=== PATIENT | female | born 1965 | race Caucasian/White ===

== ENCOUNTER 2018-07-31 20:26 | Inpatient (IN) | payer MEDICAID, OTHER, SELFPAY ==
[~2018-07-31] VITALS: Ht 167.6 cm; Wt 120.6 kg
[2018-07-31 22:30] VITALS: BP 107/55
[2018-07-31] MEDS ORDERED: MAALOX 30 ML SUSP *UDC PO PRN (23:00)
[2018-07-31] MEDS ORDERED: MOM 30ML SUSPENSION UDC PO PRN (23:00)
[2018-07-31] MEDS ORDERED: IBUP-1094 PO (23:08)
[2018-07-31] MEDS ORDERED: PRIL20TA2 PO (23:08)
--- NOTE | 2018-07-31 23:48 | HPEPDOC ---
General Date of Admission Jul 31, 2018 at 22:53 Date of Service: Jul 31, 2018 Chief Complaint The patient is a 52-year-old female admitted with a reason for visit of L Leg Pain. Source: Patient, Family Exam Limitations: No limitations Severity: Moderate Associated Symptoms: Rash History of Present Illness 52 year old morbidly obese female with BMI of 39.9 was transferred from [facility] severe left leg infected venous stasis ulcers. patient had gone to [place] ED with complaints of left lower leg swelling, drainage which started 6 months ago getting progressively worse. Now extremely painful and having difficulty in walking so went to the ED. Has not seen a physician for a long time. She says that the leg really became bad over the past 2 weeks when the ulcer started draining. She complains of sevee pain on rika left leg from the knee to the ankle, burning in charcater and dull throbbing sometimes, 10/10 in intensity without any radiation. She is having difficulty walking due to the severe pain. She was admitted for cellulitis, infected venous stais ulcers and venous stasis dermatitis. Labs from [place] on 07/31/18 WBC 8.7, Hb 13.5, Platelet 290 Na 135, K 3.4, chloride 99, bicarb 15, glucose 99, BUN17, Creatinine 1.5, ca 9.4, albumin 3.6, anion gap 21, Mag 2.3, Trop negative PT/INR: 15.2/1.16, PTT 31.3, Home Medications Scheduled Omeprazole Magnesium (Prilosec Otc) 20 Mg Tablet.dr, 20 MG PO DAILY, (Reported) Scheduled PRN Ibuprofen (Ibuprofen) 200 Mg Tablet, 600 MG PO Q6H PRN for PAIN, (Reported) Allergies Coded Allergies: No Known Allergies (Verified Allergy, Unknown, 07/31/18) Past Medical History Medical History Morbid obesity, venous stasis Surgical History none Family History Significant Family History: Hypertension (father), Other (dementia in father) Social History * Smoker: current smoker Alcohol: occationally Drugs: denies A-FIB/CHADSVASC A-FIB History Current/History of A-Fib/PAF?: No Review of Systems Constitutional: Denies: Chills, Fever, Night Sweats Eyes: Denies: Pain, Conjunctivae inflammation, Eyelid inflammation, Redness, O ther ENT: Denies: Head Aches, Ear Pain, Dysphagia Skin: Reports: Rash, Lesions, Breakdown Pulmonary: Denies: Dyspnea, Cough Cardiovascular: Denies: Chest Pain, Palpitations, Orthopnea, Paroxysmal Noc. Dyspnea, Lt Headedness Gastrointestinal: Denies: Nausea, Vomiting, Abdominal Pain, Diarrhea Genitourinary: Denies: Dysuria, Frequency, Incontinence, Retention Hematologic: Denies: Bruising, Bleeding Excessively Musculoskeletal: Denies: Neck Pain, Back Pain, Joint Pain, Muscle Pain, Spasms Neurological: Denies: Weakness, Numbness, Change in speech, Confusion Physical Examination General Exam: Positive: Alert, Cooperative, No Acute Distress Eye Exam: Positive: PERRLA, Conjunctiva & lids normal, EOMI; Negative: Sclera icteric ENT Exam: Positive: Atraumatic, Mucous membr. moist/pink, Pharynx Normal Neck Exam: Positive: Supple; Negative: JVD, thyromegaly Chest Exam: Positive: Clear to auscultation, Normal air movement Heart Exam: Positive: Rate Normal, Regular Rhythm, Normal S1, Normal S2; Negative: Murmurs, Rubs Abdomen Exam: Positive: Normal bowel sounds, Soft; Negative: Tenderness, Hepatospenomegaly Extremity Exam: Positive: Edema, Tenderness (left leg), Other (venous stasis changes in the right . on the left there is venous statis changes, infected multiple stsis ulcers and cellulitis) Skin Exam: Positive: Rash, Breakdown, Lesion, Other skin issue (Left leg with large area of multiple open superficail ulcers with , stasis dermatitis, erythema and inflammation extending from carmelo to ankles) Neuro Exam: Positive: Normal Speech, Strength at 5/5 X4 ext, Normal Tone Psych Exam: Positive: Mental status NL, Memory Intact, Oriented x 3 Vital Signs Vital Signs Label Value Date Time Patient Temperature 96.8 degrees F 07/31/182229 Temperature Source Temporal 07/31/182229 Pulse 60 07/31/182229 Respiratory Rate 17 bpm 07/31/182229 Blood Pressure Assessment 107/55 (72) 07/31/182229 Bedside Pulse Oximetry 99 % 07/31/182229 Assessment/Plan 52 year old morbidly obese female with BMI of 39.9 was transferred from [facility] severe left leg infected venous stasis ulcers. patient had gone to [place] ED with complaints of left lower leg swelling, drainage which started 6 months ago getting progressively worse. Now extremely painful and having dif ficulty in walking so went to the ED. Has not seen a physician for a long time. She says that the leg really became bad over the past 2 weeks when the ulcer started draining. She complains of sevee pain on rika left leg from the knee to the ankle, burning in charcater and dull throbbing sometimes, 10/10 in intensity without any radiation. She is having difficulty walking due to the severe pain. She was admitted for cellulitis, infected venous stais ulcers and venous stasis dermatitis. Left leg Cellulitis will give vanco and zosyn. DVT scan done in other hospital is negative. Venous stasis and stasis ulcers and stasis dermatitis elevate legs , wound care consult Dr Lomas. Morbid obesity BMI 39.9 complicating care. STACY Vs CKD we do not have any old labs she does have a low bicarb and high anion gap also will continue to monitor Plan / VTE VTE Prophylaxis Ordered?: Yes SHARRON GARIBAY MD Jul 31, 2018 23:48
[2018-08-01] MEDS ORDERED: ONDANSETRON 4MG/2ML VIAL (J2405) IV PRN
[2018-08-01 00:26] LABS: BASO % 0.2 % (0.0-1.0); EOS % 0.1 % (0.0-3.0); HEMATOCRIT 40.1 % (36.0-47.0); HEMOGLOBIN 12.9 g/dl (12.0-15.5); LYMPH # 0.8 10^3/uL (1.5-4.5); LYMPH % 9.2 % (24.0-44.0); MEAN CORPUSCULAR HEMOGLOBIN 26.5 pg (27.0-33.0); MEAN CORPUSCULAR HGB CONC 32.2 g/dl (32.0-36.5); MEAN CORPUSCULAR VOLUME 82.3 fl (80.0-96.0); MONO # 0.5 10^3/uL (0.0-0.8); MONO % 5.3 % (0.0-5.0); NEUTROPHILS # 7.6 10^3/uL (1.8-7.7); NEUTROPHILS % 84.8 % (36.0-66.0); PLATELET COUNT, AUTOMATED 250 10^3/uL (150-450); RED BLOOD COUNT 4.87 10^6/uL (4.00-5.40)
[2018-08-01 00:47] LABS: CALCIUM LEVEL 8.7 MG/DL (8.5-10.1); CREATININE FOR GFR 1.83 MG/DL (0.55-1.30); GLOMERULAR FILTRATION RATE 30.6 (>51); POTASSIUM SERUM 3.6 MEQ/L (3.5-5.1)
[2018-08-01] MEDS ORDERED: VANCOMYCIN HCL 1,000 MG, VIAL MATE ADAPTER 1 EACH in D5W 250 ML IV ONE (01:00)
[2018-08-01] MEDS: NORCO, ANEXSIA 5/325MG TABLET (HYDROcodone/ACETAMINOPHEN) PO PRN ×2 (01:40→07:59)
[2018-08-01] MEDS: PIPERACILLIN/TAZOBACTAM SOD 3.375 GM in D5W MINI-BAG PLUS 50 ML IV SCH ×4 (03:12→20:11)
--- NOTE | 2018-08-01 03:21 | PHACANCOPD ---
PHARMACY VANCOMYCIN DOSING Pt Demographics Demographics Patient Age:52 , Weight:112.100 , Gender: female Adjusted Body Weight Date: 08/01/18, Adjusted Body Weight: [80.42] Kg Vancomycin Vancomycin indication: CELLULITIS,L.LEG VENOUS STASIS ULCERS Vancomycin Target Ranges: 15-20 mcg/ml Vancomycin Load Y/N: No Load Dose Date Time Vancomycin Load Dose: Date: Time: Vancomycin Dose Date: 08/01/18. Current Vancomycin Dose: [1GM Q18H] Intermittent Dosing?: No Labs Labs Laboratory Tests 08/01/18 00:16 Red Blood Count 4.87, Mean Corpuscular Volume 82.3, Mean Corpuscular Hemoglobin 26.5 L, Mean Corpuscular Hemoglobin Concent 32.2, Red Cell Distribution Width 15.2 H, Neutrophils (%) (Auto) 84.8 H, Lymphocytes (%) (Auto) 9.2 L, Monocytes (%) (Auto) 5.3 H, Eosinophils (%) (Auto) 0.1, Basophils (%) (Auto) 0.2, Neutrophils # (Auto) 7.6, Lymphocytes # (Auto) 0.8 L, Monocytes # (Auto) 0.5, Eosinophils # (Auto) 0.0, Basophils # (Auto) 0.0, Calcium Level 8.7 Micro Microbiology 08/01/18 Gram Stain, Received Pending 08/01/18 Wound Culture, Received Pending Creatinine Clearance Date:08/01/18. Creatinine Clearance: [44.62]CALCULATED. Assessment and Plan Maintaining Current Dose?: Yes Reason for dose change: No Dose Change Pharmacist Note Pharmacist Note Date: 08/01/18. Pharmacist note:[id number] Transferred from area facility w/ cellulitis/L-leg venous stasis ulcers Received a dose of Pip/Tazo 3.375 gram and Cipro 400mg prior to transfer. SCR=1.83, Calculqated CRCL= 44.6 [facility] tx includes Pip/Tazo and Pharmacy dosed Vancomycin. Vancomycin 1 gram administered in ED @0115, then will continue with a regimen of 1 gram IV Q18H. First trough will be drawn 08/02@0800( prior to the 3rd dose)- will continue to monitor labs and make adjustments as necessary. TIMUR ECKERT PHARMACY Aug 01, 2018 03:21
[2018-08-01 06:00] VITALS: BP 145/72
[2018-08-01 06:07] LABS: BASO % 0.2 % (0.0-1.0); EOS % 0.1 % (0.0-3.0); HEMATOCRIT 40.9 % (36.0-47.0); HEMOGLOBIN 13.2 g/dl (12.0-15.5); LYMPH # 0.6 10^3/uL (1.5-4.5); LYMPH % 5.9 % (24.0-44.0); MEAN CORPUSCULAR HGB CONC 32.3 g/dl (32.0-36.5); MEAN CORPUSCULAR VOLUME 83.6 fl (80.0-96.0); MONO # 0.5 10^3/uL (0.0-0.8); MONO % 4.6 % (0.0-5.0); NEUTROPHILS # 9.3 10^3/uL (1.8-7.7); NEUTROPHILS % 88.6 % (36.0-66.0); PLATELET COUNT, AUTOMATED 248 10^3/uL (150-450); RED BLOOD COUNT 4.89 10^6/uL (4.00-5.40); WHITE BLOOD COUNT 10.5 10^3/uL (4.0-10.0)
[2018-08-01 06:36] LABS: C REACTIVE PROTEIN QUANTITATIV 11.2 MG/DL (0.00-0.30); CALCIUM LEVEL 8.5 MG/DL (8.5-10.1); CREATININE FOR GFR 2.1 MG/DL (0.55-1.30); GLOMERULAR FILTRATION RATE 26.1 (>51); POTASSIUM SERUM 4.4 MEQ/L (3.5-5.1)
[2018-08-01] MEDS: DOCUSATE SODIUM 100 MG CAP PO SCH ×3 (07:58→20:15)
[2018-08-01] MEDS: OMEPRAZOLE 20 MG CAP PO SCH (07:59)
[2018-08-01] MEDS: ENOXAPARIN 30 MG/0.3 ML SYR (J1650) SC SCH (08:00)
[2018-08-01] MEDS ORDERED: ENOXAPARIN 40 MG/0.4 ML SYRINGE (J1650) SC SCH (09:00)
[2018-08-01] MEDS ORDERED: NALOXONE INJ 0.4 MG/1 ML VIAL (J2310) IV PRN (11:00)
[2018-08-01] MEDS ORDERED: MORPHINE 4 MG/ML 1ML VIAL/SYRINGE (J2270) IV PRN (11:00)
[2018-08-01] MEDS ORDERED: NORCO, ANEXSIA 5/325MG TABLET (HYDROcodone/ACETAMINOPHEN) PO ONE (11:00)
[2018-08-01] MEDS ORDERED: MORPHINE 4 MG/ML 1ML VIAL/SYRINGE (J2270) IV ONE (11:15)
[2018-08-01 11:30] LABS: IONIZED CALCIUM 4.4 MG/DL (4.5-5.3)
--- NOTE | 2018-08-01 12:20 | IPNPDOC ---
Date Seen The patient was seen on 08/01/18. Progress Note Subjective: Pt says left leg has not been treated for 6months. She has not sought medical attention until the pain became intolerable for the past 2 weeks. Denies any fevers. c/o 10/10 severe pain despite 2 tabs norco. no c/o chills. pain is constant in the leg with no radiation. OBJECTIVE: VITALS: PLS SEE BELOW Physical Examination General Exam: Positive: Alert, Cooperative, No Acute Distress Eye Exam: Positive: PERRLA, Conjunctiva & lids normal, EOMI; Negative: Sclera icteric ENT Exam: Positive: Atraumatic, Mucous membr. moist/pink, Pharynx Normal Neck Exam: Positive: Supple; Negative: JVD, thyromegaly Chest Exam: Positive: Clear to auscultation, Normal air movement Heart Exam: Positive: Rate Normal, Regular Rhythm, Normal S1, Normal S2; Negative: Murmurs, Rubs Abdomen Exam: Positive: Normal bowel sounds, Soft; Negative: Tenderness, Hepatospenomegaly Extremity Exam: Positive: Edema, Tenderness (left leg), Other (venous stasis changes in the right . on the left there is venous statis changes, infected multiple stsis ulcers and cellulitis) Skin Exam: Positive: Rash, Breakdown, Lesion, Other skin issue (Left leg with large area of multiple open superficail ulcers with , stasis dermatitis, erythema and inflammation extending from carmelo to ankles) Neuro Exam: Positive: Normal Speech, Strength at 5/5 X4 ext, Normal Tone Psych Exam: Positive: Mental status NL, Memory Intact, Oriented x 3 laboratory data, imaging studies, microbiology: pls see below Assessment/Plan 52 year old morbidly obese female with BMI of 39.9 was transferred from [facility] severe left leg infected venous stasis ulcers. patient had gone to [place] ED with complaints of left lower leg swelling, drainage which started 6 months ago getting progressively worse. Now extremely painful and having difficulty in walking so went to the ED. Has not seen a physician for a long ttius e. She says that the leg really became bad over the past 2 weeks when the ulcer started draining. She complains of sevee pain on rika left leg from the knee to the ankle, burning in charcater and dull throbbing sometimes, 10/10 in intensity without any radiation. She is having difficulty walking due to the severe pain. She was admitted for cellulitis, infected venous stais ulcers and venous stasis dermatitis. Chronic Left LE infected venous ulcers 07/31/18 iv vanco and zosyn renally dosed by pharmacy DVT scan done in other hospital is negative. consulted General surgery Dr. Stone for debridement and wound management. Morbid obesity BMI 39.9 complicating care. at risk for hypercarbia and hypercapnic respiratory failure while on iv morphine, and po norco check nocturnal oximetry flaca protocol STACY Vs CKD we do not have any old labs she does have a low bicarb and high anion gap also will continue to monitor Metabolic Acidosis check ionized calcium and serial metabolic panel check acetone, lactic acid, and a1c trial of bicarbonate tabs tele while on bicarb tabs VS[facility]/I&O Vital Signs Date Time Temp Pulse Resp B/P (MAP) Pulse Ox O2 Delivery O2 Flow Rate FiO2 08/01/18 10:27 20 08/01/18 06:00 96.6 64 145/72 (96) 94 I&O- Last 24 Hours up to 6 AM 08/01/18 06:00 Intake Total 100 ml Output Total 0 ml Balance 100 ml Laboratory Data 24H LABS Laboratory Tests 2 08/01/18 00:16: Immature Granulocyte % (Auto) 0.4, White Blood Count 9.0, Red Blood Count 4.87, Hemoglobin 12.9, Hematocrit 40.1, Mean Corpuscular Volume 82.3, Mean Corpuscular Hemoglobin 26.5L, Mean Corpuscular Hemoglobin Concent 32.2, Red Cell Distribution Width 15.2H, Platelet Count 250, Neutrophils (%) (Auto) 84.8H, L ymphocytes (%) (Auto) 9.2L, Monocytes (%) (Auto) 5.3H, Eosinophils (%) (Auto) 0.1, Basophils (%) (Auto) 0.2, Neutrophils # (Auto) 7.6, Lymphocytes # (Auto) 0.8L, Monocytes # (Auto) 0.5, Eosinophils # (Auto) 0.0, Basophils # (Auto) 0.0, Nucleated Red Blood Cells % (auto) 0.0, Anion Gap 15, Glomerular Filtration Rate 30.6L, Lactic Acid Level 0.7, Blood Urea Nitrogen 21H, Creatinine 1.83H, Sodium Level 134L, Potassium Level 3.6, Chloride Level 101, Carbon Dioxide Level 18L, Calcium Level 8.7 08/01/18 05:56: Immature Granulocyte % (Auto) 0.6, White Blood Count 10.5H, Red Blood Count 4.89, Hemoglobin 13.2, Hematocrit 40.9, Mean Corpuscular Volume 83.6, Mean Corpuscular Hemoglobin 27.0, Mean Corpuscular Hemoglobin Concent 32.3, Red Cell Distribution Width 15.4H, Platelet Count 248, Neutrophils (%) (Auto) 88.6H, Lymphocytes (%) (Auto) 5.9L, Monocytes (%) (Auto) 4.6, Eosinophils (%) (Auto) 0.1, Basophils (%) (Auto) 0.2, Neutrophils # (Auto) 9.3H, Lymphocytes # (Auto) 0.6L, Monocytes # (Auto) 0.5, Eosinophils # (Auto) 0.0, Basophils # (Auto) 0.0, Nucleated Red Blood Cells % (auto) 0.0, Anion Gap 15, Glomerular Filtration Rate 26.1L, Blood Urea Nitrogen 25H, Creatinine 2.10H, Sodium Level 132L, Potassium Level 4.4#, Chloride Level 99, Carbon Dioxide Level 18L, Calcium Level 8.5, C- Reactive Protein, Quantitative 11.20H CBC/BMP Laboratory Tests 08/01/18 00:16 Red Blood Count 4.87, Mean Corpuscular Volume 82.3, Mean Corpuscular Hemoglobin 26.5 L, Mean Corpuscular Hemoglobin Concent 32.2, Red Cell Distribution Width 15.2 H, Neutrophils (%) (Auto) 84.8 H, Lymphocytes (%) (Auto) 9.2 L, Monocytes (%) (Auto) 5.3 H, Eosinophils (%) (Auto) 0.1, Basophils (%) (Auto) 0.2, Neutrophils # (Auto) 7.6, Lymphocytes # (Auto) 0.8 L, Monocytes # (Auto) 0.5, Eosinophils # (Auto) 0.0, Basophils # (Auto) 0.0, Calcium Level 8.7 08/01/18 05:56 Red Blood Count 4.89, Mean Corpuscular Volume 83.6, Mean Corpuscular Hemoglobin 27.0, Mean Corpuscular Hemoglobin Concent 32.3, Red Cell Distribution Width 15.4 H, Neutrophils (%) (Auto) 88.6 H, Lymphocytes (%) (Auto) 5.9 L, Monocytes (%) (Auto) 4.6, Eosinophils (%) (Auto) 0.1, Basophils (%) (Auto) 0.2, Neutrophils # (Auto) 9.3 H, Lymphocytes # (Auto) 0.6 L, Monocytes # (Auto) 0.5, Eosinophils # (Auto) 0.0, Basophils # (Auto) 0.0, Calcium Level 8.5 Microbiology Microbiology 08/01/18 Gram Stain - Final, Resulted 08/01/18 Wound Culture, Resulted Pending KATHRYN DOTSON MD Aug 01, 2018 10:35
[2018-08-01 12:46] LABS: CALCIUM LEVEL 8.9 MG/DL (8.5-10.1); CREATININE FOR GFR 2.31 MG/DL (0.55-1.30); GLOMERULAR FILTRATION RATE 23.4 (>51); POTASSIUM SERUM 3.5 MEQ/L (3.5-5.1)
[2018-08-01] MEDS: SODIUM BICARBONATE 325 MG TAB PO SCH ×3 (13:47→20:11)
[2018-08-01 14:00] VITALS: BP 146/70
[2018-08-01 14:22] LABS: HEMOGLOBIN A1c 7.9 %
[2018-08-01] MEDS: MORPHINE 30 MG TAB **MSIR PO PRN (15:05)
[2018-08-01] MEDS: SILVER SULFADIAZINE 1% CR 50 GM JAR TOP SCH ×2 (15:05→22:15)
[2018-08-01] MEDS: VANCOMYCIN HCL 1,000 MG, VIAL MATE ADAPTER 1 EACH in D5W 250 ML IV SCH (15:05)
[2018-08-01] MEDS: MORPHINE 15 MG SA TAB PO SCH (20:11)
[2018-08-01 22:00] VITALS: BP 117/55
--- NOTE | 2018-08-01 23:39 | CR ---
DATE OF CONSULTATION: 08/01/2018 REASON FOR CONSULTATION: Venous stasis disease, leg ulcers left leg with increasing pain and infections. BRIEF HISTORY OF PRESENT ILLNESS: The patient is a 52-year-old morbidly obese white female who presents with a significant venous stasis disease that had been treated for quite some time now and has probably been going on 6 months, maybe 7 months now. And over the last 2 weeks, the patient has had some increasing drainage from the site and pain and swelling, mostly from the knee to the ankle with increasing drainage. She states that when she walks, she has increased pain. She presents now for cellulitis and venous stasis disease. Her white count was normal on admission. Past medical history is significant for a history of morbid obesity, history venous stasis disease. Medications include ibuprofen as needed. PHYSICAL EXAM: Reveals a 52-year-old female who looks stated age. HEENT is unremarkable and lower extremity exam reveals significant venous stasis changes to the left lower extremity with erythema in the area with some obvious ulcerations that are all superficial and draining and have fibrinous exudate on it. It appears that these ulcerations are pretty much circumferential, extending from the proximal calf all the way down to the ankle. IMPRESSION AND PLAN: The patient has venous stasis disease of the lower extremity, and at this point, I do feel that antibiotic treatment is appropriate, leg elevation, wound care has been ordered and with dressing changes, compression and we will see how that makes a difference over the next 24-48 hours. I do feel that she may be an individual that would be best evaluated for venous insufficiency. If she does have venous insufficiency, fixing this issue, i.e. treating varicose veins may be the next appropriate step for her. However, additionally weight loss is paramount and possibly even having her undergo a gastric bypass might be a reasonable option for her to see if we cannot decrease the comorbidities associated with this morbid obesity. She understands our current plan at this time with dressing changes and will see how she does.
[2018-08-02] MEDS: KCL 10MEQ IN D5/0.45NS 1000ML 1,000 ML IV SCH ×3 (02:15→21:04)
[2018-08-02] MEDS: PIPERACILLIN/TAZOBACTAM SOD 3.375 GM in D5W MINI-BAG PLUS 50 ML IV SCH ×4 (02:31→20:14)
[2018-08-02] MEDS ORDERED: SUCRALFATE 1 GM TAB PO ONE (03:30)
[2018-08-02] MEDS: MORPHINE 4 MG/ML 1ML VIAL/SYRINGE (J2270) IV PRN ×3 (03:46→20:23)
[2018-08-02 06:00] VITALS: BP 115/62
[2018-08-02 08:20] LABS: BASO % 0.1 % (0.0-1.0); EOS % 0.3 % (0.0-3.0); HEMATOCRIT 37.6 % (36.0-47.0); HEMOGLOBIN 12.4 g/dl (12.0-15.5); LYMPH % 10.5 % (24.0-44.0); MEAN CORPUSCULAR HEMOGLOBIN 27.1 pg (27.0-33.0); MEAN CORPUSCULAR VOLUME 82.3 fl (80.0-96.0); MONO # 0.7 10^3/uL (0.0-0.8); MONO % 7.2 % (0.0-5.0); NEUTROPHILS # 7.4 10^3/uL (1.8-7.7); NEUTROPHILS % 81.6 % (36.0-66.0); PLATELET COUNT, AUTOMATED 240 10^3/uL (150-450); RED BLOOD COUNT 4.57 10^6/uL (4.00-5.40); WHITE BLOOD COUNT 9.1 10^3/uL (4.0-10.0)
[2018-08-02] MEDS: SUCRALFATE 1 GM TAB PO SCH ×4 (08:20→21:04)
[2018-08-02] MEDS: DOCUSATE SODIUM 100 MG CAP PO SCH ×2 (08:20→20:23)
[2018-08-02] MEDS: ENOXAPARIN 30 MG/0.3 ML SYR (J1650) SC SCH (08:21)
[2018-08-02] MEDS: SODIUM BICARBONATE 325 MG TAB PO SCH ×4 (08:21→21:03)
[2018-08-02] MEDS: MORPHINE 15 MG SA TAB PO SCH ×2 (08:21→21:03)
[2018-08-02] MEDS: OMEPRAZOLE 20 MG CAP PO SCH (08:21)
[2018-08-02 08:46] LABS: CALCIUM LEVEL 7.9 MG/DL (8.5-10.1); CREATININE FOR GFR 3.44 MG/DL (0.55-1.30); GLOMERULAR FILTRATION RATE 14.8 (>51); POTASSIUM SERUM 3.4 MEQ/L (3.5-5.1); VANCOMYCIN LEVEL TROUGH 23.4 UG/ML (10.0-20.0)
[2018-08-02] MEDS: VANCOMYCIN HCL 1,000 MG, VIAL MATE ADAPTER 1 EACH in D5W 250 ML IV SCH (09:00)
[2018-08-02] MEDS ORDERED: LEVEMIR (INSULIN DETEMIR) 1 UNITS/0.01ML SC ONE (09:00)
[2018-08-02] MEDS ORDERED: D5W/0.45% SODIUM CHLORIDE 1,000 ML IV SCH (09:00)
[2018-08-02] MEDS: SILVER SULFADIAZINE 1% CR 50 GM JAR TOP SCH (09:00)
[2018-08-02] MEDS: MORPHINE 30 MG TAB **MSIR PO PRN (10:00)
[2018-08-02] MEDS ORDERED: LIDOCAINE 1% MDV 20ML VIAL As Ordered ONE (10:28)
[2018-08-02] MEDS: SILVER SULFADIAZINE 1% CR 400 GM JAR TOP SCH ×2 (10:40→21:04)
[2018-08-02] MEDS ORDERED: HumuLIN R (REGULAR) INSULIN (NovoLIN R) **100U/ML** PER UNIT IV SCH (12:30)
[2018-08-02] MEDS ORDERED: INSULIN IV RATE CHANGE DOCUMENTATION ML/HR XX SCH (12:30)
[2018-08-02] MEDS ORDERED: NS 1,000 ML IV ONE ×2 (12:30→14:30)
[2018-08-02] MEDS ORDERED: POTASSIUM CHLORIDE 10 MEQ SR TABLET PO ONE (12:45)
--- NOTE | 2018-08-02 12:47 | IPNPDOC ---
Date Seen The patient was seen on 08/02/18. Progress Note Subjective: pt has stacy despite ivfluids and a1c 7.9 with new onset mild dka due to LE diabetic infection in the setting of venous insufficiency. Pain in the leg is improved, 5/10 pain scale with current meds. Per Surgery, vascular surgery consult to confirm venous insufficiency and mgt. Continue with dressing changes and iv antibiotics, especially to cover pseudomonas. currently on iv vanco and iv zosyn. no c/o polyuria, polydipsia, weight loss, polyphagia. Pt has not seen a physician in several years. OBJECTIVE: VITALS: PLS SEE BELOW Physical Examination General Exam: Positive: Alert, Cooperative, No Acute Distress Eye Exam: Positive: PERRLA, Conjunctiva & lids normal, EOMI; Negative: Sclera icteric ENT Exam: Positive: Atraumatic, Mucous membr. moist/pink, Pharynx Normal Neck Exam: Positive: Supple; Negative: JVD, thyromegaly Chest Exam: Positive: Clear to auscultation, Normal air movement Heart Exam: Positive: Rate Normal, Regular Rhythm, Normal S1, Normal S2; Negative: Murmurs, Rubs Abdomen Exam: Positive: Normal bowel sounds, Soft; Negative: Tenderness, Hepatospenomegaly Extremity Exam: Positive: Edema, Tenderness (left leg), Other (venous stasis changes in the right . on the left there is venous statis changes, infected multiple stsis ulcers and cellulitis) Skin Exam: Positive: Rash, Breakdown, Lesion, Other skin issue (Left leg with large area of multiple open superficail ulcers with , stasis dermatitis, erythema and inflammation extending from carmelo to ankles) Neuro Exam: Positive: Normal Speech, Strength at 5/5 X4 ext, Normal Tone Psych Exam: Positive: Mental status NL, Memory Intact, Oriented x 3 laboratory data, imaging studies, microbiology: pls see below Assessment/Plan 52 year old morbidly obese female with BMI of 39.[address] [facility] severe left leg infected venous stasis ulcers. patient had gone to [facility] ED with complaints of left lower leg swelling, drainage which started 6 months ago getting progressively worse. Now extremely painful and having difficulty in walking so went to the ED. Has not seen a physician for a long time. She says that the leg really became bad over the past 2 weeks when the ulcer started draining. She complains of sevee pain on rika left leg from the knee to the ankle, burning in charcater and dull throbbing sometimes, 10/10 in intensity without any radiation. She is having difficulty walking due to the severe pain. She was admitted for cellulitis, infected venous stais ulcers and venous stasis dermatitis. Mild Diabetic Ketoacidosis / New onset DM type 2 -due to Left LE diabetic infection -transfer to icu until acidosis is resolved -insulin iv gtt, q1hr fingersticks, q4hrs bmp until acidosis resolves -ns x 2liters. then d5 with kcl to prevent hypoglycemia -s/p levemir insulin 10 units sq this morning -bicarbonate 16-17, not improved with ivfluids, antibiotics and sodium bicarb tabs -A1c 7.9 -diabetic teaching -consistent carbs diet -check urine for proteinuria, will need ophthalmology fu to rule out retinopathy, and q8eshnam md fu as outpt for a1c monitoring -insulin teaching -will need home care at hospital discharge Chronic Left LE infected venous ulcers 07/31/18 iv vanco and zosyn renally dosed by pharmacy DVT scan done in other hospital is negative. consulted General surgery Dr. Stone for debridement and wound management. Per Surgery, vascular surgery consult to confirm venous insufficiency and mgt. Continue with dressing changes and iv antibiotics, especially to cover pseudomonas. currently on iv vanco and iv zosyn. Morbid obesity BMI 39.9 complicating care. at risk for hypercarbia and hypercapnic respiratory failure while on iv morphine, and po norco check nocturnal oximetry flaca protocol STACY Vs CKD we do not have any old labs she does have a low bicarb and high anion gap also had NSAID use prior to hospital admission, now with new onset DM2 IVfluid trial monitor urine output pharmacy to renally dose iv vanco and zosyn Diet: consistent carbs disposition: transfer to icu. VS, I&O, 24H, [facility] Vital Signs/I&O Vital Signs Date Time Temp Pulse Resp B/P (MAP) Pulse Ox O2 Delivery O2 Flow Rate FiO2 08/02/18 08:21 16 08/02/18 06:00 98.1 75 115/62 (79) 94 I&O- Last 24 Hours up to 6 AM 08/02/18 06:00 Intake Total 2200 ml Output Total 600 ml Balance 1600 ml Laboratory Data 24H LABS Laboratory Tests 2 6/25/19 11:21: Anion Gap 18H, Glomerular Filtration Rate 23.4L, Estimated Mean Plasma Glucose 180H, Hemoglobin A1c 7.9, Blood Urea Nitrogen 28H, Creatinine 2.31H, Sodium Level 132L, Potassium Level 3.5#, Chloride Level 98, Carbon Dioxide Level 16L, Calcium Level 8.9, Whole Blood Ionized Calcium 4.4L, B-Hydroxybutyrate 2.63 08/02/18 08:11: Immature Granulocyte % (Auto) 0.3, White Blood Count 9.1, Red Blood Count 4.57, Hemoglobin 12.4, Hematocrit 37.6, Mean Corpuscular Volume 82.3, Mean Corpuscular Hemoglobin 27.1, Mean Corpuscular Hemoglobin Concent 33.0, Red Cell Distribution Width 15.5H, Platelet Count 240, Neutrophils (%) (Auto) 81.6H, Lymphocytes (%) (Auto) 10.5L, Monocytes (%) (Auto) 7.2H, Eosinophils (%) (Auto) 0.3, Basophils (%) (Auto) 0.1, Neutrophils # (Auto) 7.4, Lymphocytes # (Auto) 1.0L, Monocytes # (Auto) 0.7, Eosinophils # (Auto) 0.0, Basophils # (Auto) 0.0, Nucleated Red Blood Cells % (auto) 0.0 CBC/BMP Laboratory Tests 08/01/18 11:21 Calcium Level 8.9 08/02/18 08:11 Red Blood Count 4.57, Mean Corpuscular Volume 82.3, Mean Corpuscular Hemoglobin 27.1, Mean Corpuscular Hemoglobin Concent 33.0, Red Cell Distribution Width 15.5 H, Neutrophils (%) (Auto) 81.6 H, Lymphocytes (%) (Auto) 10.5 L, Monocytes (%) (Auto) 7.2 H, Eosinophils (%) (Auto) 0.3, Basophils (%) (Auto) 0.1, Neutrophils # (Auto) 7.4, Lymphocytes # (Auto) 1.0 L, Monocytes # (Auto) 0.7, Eosinophils # (Auto) 0.0, Basophils # (Auto) 0.0 Microbiology Microbiology 08/01/18 Gram Stain - Final, Resulted 08/01/18 Wound Culture, Resulted Pending KATHRYN DOTSON MD Aug 02, 2018 08:39
[2018-08-02] MEDS ORDERED: INSULIN HUMAN REGULAR 100 UNITS in NS 99 ML IV SCH (13:00)
[2018-08-02 14:20] VITALS: BP 134/61
[2018-08-02] MEDS ORDERED: DEXTROSE 50% 50 ML SYRINGE IV PRN (15:00)
[2018-08-02] MEDS ORDERED: GLUCAGON FOR INJ 1 MG VIAL (J1610) SC PRN (15:00)
[2018-08-02] MEDS ORDERED: GLUCOSE 4 GM CHEW TABLET PO PRN (15:00)
--- NOTE | 2018-08-02 16:40 | REP ---
PICC line insertion under ultrasound guidance. The procedure was performed by TEMITOPE Kirby, under the direct supervision of Dr. Stoll. The risks and benefits of the procedure were explained to the patient and informed consent was obtained the verbally and written. Directly prior to the start of the procedure, a formal timeout was completed in the procedure room. The right basilic vein was localized using ultrasound guidance. The skin was prepped and draped in the sterile fashion. 4 ml 1% lidocaine was used as a local anesthetic. Using ultrasound guidance the right basilic vein was cannulated and a 0.018 guidewire was inserted and advanced to the SVC using fluoroscopic guidance. The needle was removed and a 5.5 [place] dilator and peel-away sheath was inserted over the guidewire. A 5.5 [place] double lumen catheter was cut to the length of 37 cm. The dilator was removed and the catheter was inserted over the guide wire with the tip ending in the SVC. The peel-away sheath was removed and the catheter was flushed with heparinized saline as per hospital protocol. The catheter was affixed to the skin and a sterile dressing was applied. The patient tolerated the procedure well and there were no immediate complications. 0.2 minutes of fluoroscopy time was utilized for this procedure. Some fluoroscopic images are performed with last image hold technology. These images require no additional radiation. Reviewed by TEMITOPE Hurd 08/02/2018 01:13 P Electronically Signed by Tony Stoll MD 08/02/2018 04:31 P
[2018-08-02 17:00] VITALS: BP 116/58
[2018-08-02] MEDS: SODIUM CHLORIDE 0.9% INJ 10 ML SYR IV SCH (18:00)
[2018-08-02 20:00] VITALS: BP 132/59
[2018-08-02 21:26] LABS: CREATININE FOR GFR 3.31 MG/DL (0.55-1.30); GLOMERULAR FILTRATION RATE 15.5 (>51); PHOSPHORUS LEVEL 6.9 MG/DL (2.5-4.9); POTASSIUM SERUM 3.4 MEQ/L (3.5-5.1)
[2018-08-03] VITALS: BP 130/65
[2018-08-03] MEDS: MORPHINE 4 MG/ML 1ML VIAL/SYRINGE (J2270) IV PRN ×5 (00:29→20:30)
[2018-08-03 01:01] LABS: CALCIUM LEVEL 7.9 MG/DL (8.5-10.1); CREATININE FOR GFR 3.24 MG/DL (0.55-1.30); GLOMERULAR FILTRATION RATE 15.8 (>51); PHOSPHORUS LEVEL 6.6 MG/DL (2.5-4.9); POTASSIUM SERUM 3.4 MEQ/L (3.5-5.1)
[2018-08-03] MEDS: PIPERACILLIN/TAZOBACTAM SOD 3.375 GM in D5W MINI-BAG PLUS 50 ML IV SCH ×2 (01:12→09:25)
[2018-08-03 04:00] VITALS: BP 122/60
[2018-08-03] MEDS: SODIUM CHLORIDE 0.9% INJ 10 ML SYR IV SCH ×2 (05:12→16:57)
[2018-08-03 05:22] LABS: BASO % 0.3 % (0.0-1.0); EOS # 0.1 10^3/uL (0.0-0.50); HEMATOCRIT 32.3 % (36.0-47.0); HEMOGLOBIN 10.6 g/dl (12.0-15.5); LYMPH # 1.4 10^3/uL (1.5-4.5); LYMPH % 23.1 % (24.0-44.0); MEAN CORPUSCULAR HGB CONC 32.8 g/dl (32.0-36.5); MEAN CORPUSCULAR VOLUME 82.4 fl (80.0-96.0); MONO # 0.6 10^3/uL (0.0-0.8); MONO % 9.3 % (0.0-5.0); NEUTROPHILS # 3.9 10^3/uL (1.8-7.7); PLATELET COUNT, AUTOMATED 222 10^3/uL (150-450); RED BLOOD COUNT 3.92 10^6/uL (4.00-5.40); WHITE BLOOD COUNT 5.9 10^3/uL (4.0-10.0)
[2018-08-03 05:40] LABS: CALCIUM LEVEL 7.9 MG/DL (8.5-10.1); CREATININE FOR GFR 3.11 MG/DL (0.55-1.30); GLOMERULAR FILTRATION RATE 16.6 (>51); PHOSPHORUS LEVEL 6.2 MG/DL (2.5-4.9); POTASSIUM SERUM 3.4 MEQ/L (3.5-5.1)
[2018-08-03 05:54] LABS: ACETONE/KETONE 0.64 MG/DL (<2.81); VANCOMYCIN RANDOM 16.8 UG/ML
--- NOTE | 2018-08-03 06:38 | PHACANCOPD ---
PHARMACY VANCOMYCIN DOSING Pt Demographics Demographics Patient Age:52 , Weight:112.800 , Gender: female Adjusted Body Weight Date: 08/01/18, Adjusted Body Weight: [80.42] Kg Vancomycin Vancomycin indication: CELLULITIS,L.LEG VENOUS STASIS ULCERS Vancomycin Target Ranges: 15-20 mcg/ml Vancomycin Load Y/N: No Load Dose Date Time Vancomycin Load Dose: Date: Time: Vancomycin Dose Date: 08/01/18. Current Vancomycin Dose: [1GM Q18H] Intermittent Dosing?: No Labs Micro Microbiology 08/01/18 Gram Stain - Final, Resulted 08/01/18 Wound Culture, Resulted Pending Creatinine Clearance Date:08/01/18. Creatinine Clearance: [44.62]CALCULATED. Assessment and Plan Maintaining Current Dose?: No Reason for dose change: Trough too high Pharmacist Note Pharmacist Note Date: 08/03/18. Pharmacist note:Vancomycin random drawn this morning reported as 16.8, SCR=3.11, CRCL=26.4 (calculated) Will adjust current Vanco dose to 750mg IV Q24H to begin@0900 this morning. Will draw a trough prior to tomorrow's 0900 dose.-will continue to follow )Date: 08/01/18. Pharmacist note:[id number] Transferred from area facility w/ cellulitis/L-leg venous stasis ulcers Received a dose of Pip/Tazo 3.375 gram and Cipro 400mg prior to transfer. SCR=1.83, Calculqated CRCL= 44.6 [facility] tx includes Pip/Tazo and Pharmacy dosed Vancomycin. Vancomycin 1 gram administered in ED @0115, then will continue with a regimen of 1 gram IV Q18H. First trough will be drawn 08/02@0800( prior to the 3rd dose)- will continue to monitor labs and make adjustments as necessary. TIMUR ECKERT PHARMACY Aug 03, 2018 06:38
[2018-08-03] MEDS: KCL 10MEQ IN D5/0.45NS 1000ML 1,000 ML IV SCH ×2 (07:22→08:45)
--- NOTE | 2018-08-03 07:22 | IPNPDOC ---
Date Seen The patient was seen on 08/03/18. Progress Note Subjective: Despite 3.5 liters ivfluids and 1.8 liters out,, creatinine remains unchanged, workup for RTA , myeloma, obstructive uropathy done. nephrology consultation obtained. Pt has not seen a physician in decades and baseline creatinine is unknown. She admits to taking advil prior to hospital admission, has been on iv vanco zosyn since admission, and has a new onset DM. 0/10 pain in the left leg when supine, but "makes me cry, maximum pain when I get up to go to the bathroom, and when they change the dressings." No c/o abd pain, nausea, but admits to nonproductive cough, "but I'm a smoker. 1/2-1ppd for years." Referring to pulse ox, "but this makes me feel like I have a cigarette in my hand," and denies any nicotine cravings. Afebrile, no chills overnight. denies dysuria, urgency, frequency. per RN, last void was 800ml in one episode. OBJECTIVE: VITALS: PLS SEE BELOW Physical Examination General Exam: Positive: Alert, Cooperative, No Acute Distress Eye Exam: Positive: PERRLA, Conjunctiva & lids normal, EOMI; Negative: Sclera icteric ENT Exam: Positive: Atraumatic, Mucous membr. moist/pink, Pharynx Normal Neck Exam: Positive: Supple; Negative: JVD, thyromegaly Chest Exam: Positivediminished Normal air movement Heart Exam: Positive: Rate Normal, Regular Rhythm, Normal S1, Normal S2; Negative: Murmurs, Rubs Abdomen Exam: Positive: Normal bowel sounds, Soft; Negative: Tenderness, Hepatospenomegaly Extremity Exam: Positive: Edema, Tenderness (left leg), Other (venous stasis changes in the right . on the left there is venous statis changes, infected multiple stsis ulcers and cellulitis) Skin Exam: Positive: Rash, Breakdown, Lesion, Other skin issue (Left leg with large area of multiple open superficail ulcers with , stasis dermatitis, erythema and inflammation extending from carmelo to ankles) Neuro Exam: Positive: Normal Speech, Strength at 5/5 X4 ext, Normal Tone Psych Exam: Positive: Mental status NL, Memory Intact, Oriented x 3 laboratory data, imaging studies, microbiology: pls see below Assessment/Plan 52 year old morbidly obese female with BMI of 39.9 was transferred from [facility] severe left leg infected venous stasis ulcers. patient had gone to [place] ED with complaints of left lower leg swelling, drainage which started 6 months ago getting progressively worse. Now extremely painful and having difficulty in walking so went to the ED. Has not seen a physician for a long time. She says that the leg really became bad over the past 2 weeks when the ulcer started draining. She complains of sevee pain on rika left leg from the knee to the ankle, burning in charcater and dull throbbing sometimes, 10/10 in intensity without any radiation. She is having difficulty walking due to the severe pain. She was admitted for cellulitis, infected venous stais ulcers and venous stasis dermatitis. New onset DM type 2 -treated for mild DKA -most likely brought on by infected left LE chronic venous ulcers -transferred to icu 08/02/18 until acidosis is resolved -insulin iv gtt, q1hr fingersticks, q4hrs bmp until acidosis resolves -s/p ns x 2liters. then d5 with kcl to prevent hypoglycemia -s/p levemir insulin 10 units sq this morning -bicarbonate 16-17, not improved with ivfluids, antibiotics and sodium bicarb tabs -A1c 7.9 -diabetic teaching -consistent carbs diet -check urine for proteinuria, will need ophthalmology fu to rule out retinopathy, and [id number] md fu as outpt for a1c monitoring -insulin teaching -will need home care at hospital discharge Chronic Left LE infected venous ulcers 07/31/18 iv vanco and zosyn renally dosed by pharmacy DVT scan done in other hospital is negative. consulted General surgery Dr. Stone for debridement and wound management. Per Surgery, vascular surgery consult to confirm venous insufficiency and mgt. Continue with dressing changes and iv antibiotics, especially to cover pseudomonas. currently on iv vanco and iv zosyn. Morbid obesity BMI 39.9 complicating care. at risk for hypercarbia and hypercapnic respiratory failure while on iv morphine, and po norco check nocturnal oximetry flaca protocol STACY Vs CKD we do not have any old labs pt has not seen a physician in decades "If it's not broken, don't fix it," per the patient 08/03/18. she does have a low bicarb and high anion gap also had NSAID use prior to hospital admission, now with new onset DM2 IVfluid trial monitor urine output pharmacy to renally dose iv vanco and zosyn daily weights strict i/o rule out postobstructive uropathy, check postvoid residual and renal ultrasound fuentes if obstruction is confirmed check spep, upep, r/o rta check urine electrolytes nephrology consultation Diet: consistent carbs VS, I&O, 24H, Fishbone Vital Signs/I&O Vital Signs Date Time Temp Pulse Resp B/P (MAP) Pulse Ox O2 Delivery O2 Flow Rate FiO2 08/03/18 04:00 98.4 61 14 122/60 (80) 96 I&O- Last 24 Hours up to 6 AM 08/03/18 06:00 Intake Total 3750 ml Output Total 1800 ml Balance 1950 ml Laboratory Data 24H LABS Laboratory Tests 2 08/02/18 08:11: Immature Granulocyte % (Auto) 0.3, White Blood Count 9.1, Red Blood Count 4.57, Hemoglobin 12.4, Hematocrit 37.6, Mean Corpuscular Volume 82.3, Mean Corpuscular Hemoglobin 27.1, Mean Corpuscular Hemoglobin Concent 33.0, Red Cell Distribution Width 15.5H, Platelet Count 240, Neutrophils (%) (Auto) 81.6H, Lymphocytes (%) (Auto) 10.5L, Monocytes (%) (Auto) 7.2H, Eosinophils (%) (Auto) 0.3, Basophils (%) (Auto) 0.1, Neutrophils # (Auto) 7.4, Lymphocytes # (Auto) 1.0L, Monocytes # (Auto) 0.7, Eosinophils # (Auto) 0.0, Basophils # (Auto) 0.0, Nucleated Red Blood Cells % (auto) 0.0, Anion Gap 14, Glomerular Filtration Rate 14.8L, Blood Urea Nitrogen 43#H, Creatinine 3.44H, Sodium Level 132L, Potassium Level 3.4L, Chloride Level 101, Carbon Dioxide Level 17L, Calcium Level 7.9L, Vancomycin Level Trough 23.4H 08/02/18 09:14: Bedside Glucose (Misc Panel) 129H 08/02/18 14:15: Bedside Glucose (Misc Panel) 118H 08/02/18 14:27: B-Hydroxybutyrate 0.65 08/02/18 15:07: Bedside Glucose (Misc Panel) 99 08/02/18 16:18: Bedside Glucose (Misc Panel) 149H 08/02/18 17:14: Bedside Glucose (Misc Panel) 144H 08/02/18 17:59: Bedside Glucose (Misc Panel) 143H 08/02/18 18:59: Bedside Glucose (Misc Panel) 144H 08/02/18 20:11: Bedside Glucose (Misc Panel) 117H 08/02/18 20:34: Anion Gap 12, Glomerular Filtration Rate 15.5L, Blood Urea Nitrogen 46H, Creatinine 3.31H, Sodium Level 132L, Potassium Level 3.4L, Chloride Level 102, Carbon Dioxide Level 18L, Calcium Level 8.0L, Phosphorus Level 6.9H 08/02/18 21:15: Bedside Glucose (Misc Panel) 123H 08/02/18 22:03: Bedside Glucose (Misc Panel) 142H 08/03/18 00:18: Bedside Glucose (Misc Panel) 161H 08/03/18 00:20: Anion Gap 11, Glomerular Filtration Rate 15.8L, Blood Urea Nitrogen 46H, Creatinine 3.24H, Sodium Level 132L, Potassium Level 3.4L, Chloride Level 102, Carbon Dioxide Level 19L, Calcium Level 7.9L, Phosphorus Level 6.6H 08/03/18 00:59: Bedside Glucose (Misc Panel) 135H 08/03/18 02:15: Bedside Glucose (Misc Panel) 165H 08/03/18 03:06: Bedside Glucose (Misc Panel) 156H 08/03/18 04:04: Bedside Glucose (Misc Panel) 127H 08/03/18 05:01: Immature Granulocyte % (Auto) 0.3, White Blood Count 5.9, Red Blood Count 3.92L, Hemoglobin 10.6L, Hematocrit 32.3L, Mean Corpuscular Volume 82.4, Mean Corpuscular Hemoglobin 27.0, Mean Corpuscular Hemoglobin Concent 32.8, Red Cell Distribution Width 15.7H, Platelet Count 222, Neutrophils (%) (Auto) 65.0, Lymphocytes (%) (Auto) 23.1L, Monocytes (%) (Auto) 9.3H, Eosinophils (%) (Auto) 2.0, Basophils (%) (Auto) 0.3, Neutrophils # (Auto) 3.9, Lymphocytes # (Auto) 1.4L, Monocytes # (Auto) 0.6, Eosinophils # (Auto) 0.1, Basophils # (Auto) 0.0, Nucleated Red Blood Cells % (auto) 0.0, Anion Gap 12, Glomerular Filtration Rate 16.6L, Blood Urea Nitrogen 47H, Creatinine 3.11H, Sodium Level 133L, Potassium Level 3.4L, Chloride Level 104, Carbon Dioxide Level 17L, Calcium Level 7.9L, Phosphorus Level 6.2H, Random Vancomycin Level 16.8, B-Hydroxybutyrate 0.64 08/03/18 05:04: Bedside Glucose (Misc Panel) 147H 08/03/18 06:16: Bedside Glucose (Misc Panel) 152H CBC/BMP Laboratory Tests 08/02/18 08:11 Red Blood Count 4.57, Mean Corpuscular Volume 82.3, Mean Corpuscular Hemoglobin 27.1, Mean Corpuscular Hemoglobin Concent 33.0, Red Cell Distribution Width 15.5 H, Neutrophils (%) (Auto) 81.6 H, Lymphocytes (%) (Auto) 10.5 L, Monocytes (%) (Auto) 7.2 H, Eosinophils (%) (Auto) 0.3, Basophils (%) (Auto) 0.1, Neutrophils # (Auto) 7.4, Lymphocytes # (Auto) 1.0 L, Monocytes # (Auto) 0.7, Eosinophils # (Auto) 0.0, Basophils # (Auto) 0.0, Calcium Level 7.9 L 08/02/18 20:34 Calcium Level 8.0 L 08/03/18 00:20 Calcium Level 7.9 L 08/03/18 05:01 Red Blood Count 3.92 L, Mean Corpuscular Volume 82.4, Mean Corpuscular Hemoglobin 27.0, Mean Corpuscular Hemoglobin Concent 32.8, Red Cell Distribution Width 15.7 H, Neutrophils (%) (Auto) 65.0, Lymphocytes (%) (Auto) 23.1 L, Monocytes (%) (Auto) 9.3 H, Eosinophils (%) (Auto) 2.0, Basophils (%) (Auto) 0.3, Neutrophils # (Auto) 3.9, Lymphocytes # (Auto) 1.4 L, Monocytes # (Auto) 0.6, Eosinophils # (Auto) 0.1, Basophils # (Auto) 0.0, Calcium Level 7.9 L Microbiology Microbiology 08/01/18 Gram Stain - Final, Resulted 08/01/18 Wound Culture, Resulted Pending KATHRYN DOTSON MD Aug 03, 2018 06:50
[2018-08-03 08:00] VITALS: BP 137/63
[2018-08-03] MEDS: MORPHINE 15 MG SA TAB PO SCH ×2 (08:15→20:31)
[2018-08-03] MEDS: MORPHINE 30 MG TAB **MSIR PO PRN ×3 (08:16→16:19)
[2018-08-03] MEDS ORDERED: POTASSIUM CHLORIDE 10 MEQ SR TABLET PO SCH (09:00)
[2018-08-03] MEDS: DOCUSATE SODIUM 100 MG CAP PO SCH (09:00)
--- NOTE | 2018-08-03 09:06 | REP ---
Clinical: Cough . Comparison: None . Technique: PA and lateral. Findings: The mediastinum and cardiac silhouette are normal. The lung donaldson are clear and without acute consolidation, effusion, or pneumothorax. The skeletal structures are intact and normal. Impression: 1. No acute cardiopulmonary process. Electronically Signed by Leighton Meade MD 08/03/2018 08:58 A
[2018-08-03] MEDS: SODIUM BICARBONATE 325 MG TAB PO SCH (09:24)
[2018-08-03] MEDS: OMEPRAZOLE 20 MG CAP PO SCH (09:24)
[2018-08-03] MEDS: ENOXAPARIN 30 MG/0.3 ML SYR (J1650) SC SCH (09:24)
[2018-08-03] MEDS: SUCRALFATE 1 GM TAB PO SCH ×4 (09:25→20:30)
[2018-08-03] MEDS: SILVER SULFADIAZINE 1% CR 400 GM JAR TOP SCH ×2 (09:26→21:00)
--- NOTE | 2018-08-03 09:31 | REP ---
Clinical: Acute renal failure. Technique: Real time rodgers scale ultrasound examination using curved array transducer. Findings: The bilateral kidneys are normal in contour, size, echogenicity, and reniform shape. No hydronephrosis, nephrolithiasis, cystic or renal mass lesions are appreciated. No perinephric fluid collection identified. Bladder is grossly unremarkable but under distended on current evaluation. Right kidney measures 13.0 x 5.9 x 5.0 cm. Left kidney measures 13.1 x 525 5.6 cm. Impression: Normal renal ultrasound. Electronically Signed by Leighton Meade MD 08/03/2018 09:21 A
[2018-08-03 10:08] LABS: ABG BASE EXCESS -12.4 (-2.0-2.0); ABG HCO3 13.6 MEQ/L (22.0-26.0); ABG O2 SATURATION 95.9 % (95.0-99.0); ABG PARTIAL PRESSURE CO2 31.5 mmHg (35.0-45.0); ABG PARTIAL PRESSURE O2 83.4 mmHg (75.0-100.0); ABG STANDARD HCO3 14.7 MEQ/L (22.0-26.0); ABG TOTAL CO2 14.5 MEQ/L (22.0-29.0); ABG pH (ARTERIAL) 7.252 UNITS (7.350-7.450)
[2018-08-03] MEDS: VANCOMYCIN HCL 750 MG, VIAL MATE ADAPTER 1 EACH in D5W 250 ML IV SCH (10:52)
--- NOTE | 2018-08-03 11:09 | IPN ---
DATE: 08/02/2018 The patient overall has been stable with her dressing changes and overnight and she liked the Silvadene, it hurts a lot less when we change the dressings. This morning, I removed the dressing and a great deal of the fibrinous exudate came off with the Silvadene today. However, it is very tender to her. She still has a great deal of edema in that leg and some erythema. Her white count is better this morning. IMPRESSION/PLAN: Patient has significant lymph edema of that extremity. I do feel that it is reasonable to get vascular to see her if she has some significant vascular insufficiency. I think it does need urgent intervention and performing that here prior to discharge if she has venous insufficiency, which I anticipate that she does. Then this should make a significant improvement on wound healing. However, if she does not have significant venous insufficiency, then the big question is whether weight loss issues are going to make any significant improvement and she should consider bariatric surgery in the future once she deals with this ulcer and gets this to a state that we can discharge her to home. Right now, we need to clean this up more with some dressing changes. She will not tolerate pulse lavage nor debridement and more importantly, it is so extensive that if she underwent debridement, she would probably the entire lower leg skin grafts. If this is the case, then I would recommend getting plastics involved for this type of extensive treatment. But at this point, I would recommend continuing with the dressing changes and see how she does over the next 24-48 hours. And also to see if vascular surgery finds some issues that can be reversed/improved.
--- NOTE | 2018-08-03 11:14 | CR.PDOC ---
General Date of Consultation: Aug 03, [address] Jennings REASON FOR CONSULTATION: non healing ulcer LLE. HPI: 52 year old female transferred from [facility] for severe LLE venous stasis ulcers. The patient had gone to [place] ED with complaints of left lower leg swelling, drainage which started 6 months ago but was getting progressively worse. Has not seen a physician for a long time. She says that the LLE really became bad over the past 2 weeks when the wound started draining and spreading around her leg. She reports pain on the left leg from the knee to the ankle, since her wound has been worse in the past 2 weeks. She was admitted for cellulitis, infected venous stasis ulcers and venous stasis dermatitis. Vascular surgery is consulted re non healing ulcers LLE. 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 Denies LE edema. Pt states her varicose veins have never been problematic for her. Denies any fevers, chills, weakness, fatigue, Headache, Chest Pain, Shortness of breath, cough, palpitations, abdominal pain, N/V/D or changes in bowel or bladder habits. PMHx: Obesity. BMI 40.2 chronic venous insufficiency DM2 diagnosed this admission. CKD vs STACY, noted this admission. SCr 3.11. PSHX: denies SOCHX: Resides in: [facility] Marital Status: single Tobacco use: smoker ETOH: denies Illicit Drugs: Denies FAMHX: HTN, dementia ROS: As noted in HPI, otherwise 11pt ROS of systems reviewed and unremarkable. PE: GEN: 52yoF, appears stated age. Pain with movement of LLE. Alert and oriented x 3. HEENT: Normocephalic, atraumatic.Sclera are nonicteric. Conjunctiva without injection. No facial asymmetry. Moist mucous membranes. CHEST: Regular rate and rhythm, +S1, +S2 LUNGS: Clear to auscultation bilaterally. No wheezes, rales, or rhonchi. Breathing appears symmetric and easy. ABD: Round, soft, non-tender, non-distended. +Bowel sounds throughout. EXT: Pulses obtained with Doppler RLE DP monophasic, PT biphasic, LLE DP monophasic, PT unable related to draining wound. SKIN: Toes are cool to touch B/l, superficial varicose veins noted. Circumferential dark red appearing, bleeding wound LLE from ankle area to mid tibial area with fibrinous exudate, and necrotic appearing tissue. NEURO: Alert and oriented x 3. No focal deficits appreciated. WOUND CULTURE Preliminary Organism 1 STAPH.AUREUS METHICILLIN RESIS QUANTITY OF GROWTH HEAVY DVT scan done in other hospital is negative. A&P: 1. Non healing LLE wound. Continue with wound care. Possible consider wound debridement, Dr Jennings to further review and examine. Request BLE arterial US to further asses. Possibly consider LLE angiogram pending results, however SCr is noted to be 3.11. Will monitor SCr trend. IVF currently 100cc/hr as per primary team. Continue antibiotics as per Primary team. WC positive for MRSA. IV Vanco. Pain control as per primary team. 2. STACY vs CKD. Nephrology consulted, recommendations pending. SCr 3.11, unknown baseline. Monitor. 3. DVT prophylaxis. Lovenox. Thank you for your consultation. We will continue to follow along with you. Vital Signs/I&O Vital Signs Date Time Temp Pulse Resp B/P (MAP) Pulse Ox O2 Delivery O2 Flow Rate FiO2 08/03/18 09:22 14 08/03/18 08:16 95 08/03/18 08:15 95 08/03/18 04:00 98.4 61 122/60 (80) I&O- Last 24 Hours up to 6 AM 08/03/18 06:00 Intake Total 3750 ml Output Total 1800 ml Balance 1950 ml Laboratory Data Labs 24H Laboratory Tests 2 08/02/18 14:15: Bedside Glucose (Misc Panel) 118H 08/02/18 14:27: B-Hydroxybutyrate 0.65 08/02/18 15:07: Bedside Glucose (Misc Panel) 99 08/02/18 16:18: Bedside Glucose (Misc Panel) 149H 08/02/18 17:14: Bedside Glucose (Misc Panel) 144H 08/02/18 17:59: Bedside Glucose (Misc Panel) 143H 08/02/18 18:59: Bedside Glucose (Misc Panel) 144H 08/02/18 20:11: Bedside Glucose (Misc Panel) 117H 08/02/18 20:34: Anion Gap 12, Glomerular Filtration Rate 15.5L, Blood Urea Nitrogen 46H, Creatinine 3.31H, Sodium Level 132L, Potassium Level 3.4L, Chloride Level 102, Carbon Dioxide Level 18L, Calcium Level 8.0L, Phosphorus Level 6.9H 08/02/18 21:15: Bedside Glucose (Misc Panel) 123H 08/02/18 22:03: Bedside Glucose (Misc Panel) 142H 08/03/18 00:18: Bedside Glucose (Misc Panel) 161H 08/03/18 00:20: Anion Gap 11, Glomerular Filtration Rate 15.8L, Blood Urea Nitrogen 46H, Creatinine 3.24H, Sodium Level 132L, Potassium Level 3.4L, Chloride Level 102, Carbon Dioxide Level 19L, Calcium Level 7.9L, Phosphorus Level 6.6H 08/03/18 00:59: Bedside Glucose (Misc Panel) 135H 08/03/18 02:15: Bedside Glucose (Misc Panel) 165H 08/03/18 03:06: Bedside Glucose (Misc Panel) 156H 08/03/18 04:04: Bedside Glucose (Misc Panel) 127H 08/03/18 05:01: Immature Granulocyte % (Auto) 0.3, White Blood Count 5.9, Red Blood Count 3.92L, Hemoglobin 10.6L, Hematocrit 32.3L, Mean Corpuscular Volume 82.4, Mean Corpuscular Hemoglobin 27.0, Mean Corpuscular Hemoglobin Concent 32.8, Red Cell Distribution Width 15.7H, Platelet Count 222, Neutrophils (%) (Auto) 65.0, Lymphocytes (%) (Auto) 23.1L, Monocytes (%) (Auto) 9.3H, Eosinophils (%) (Auto) 2.0, Basophils (%) (Auto) 0.3, Neutrophils # (Auto) 3.9, Lymphocytes # (Auto) 1.4L, Monocytes # (Auto) 0.6, Eosinophils # (Auto) 0.1, Basophils # (Auto) 0.0, Nucleated Red Blood Cells % (auto) 0.0, Anion Gap 12, Glomerular Filtration Rate 16.6L, Blood Urea Nitrogen 47H, Creatinine 3.11H, Sodium Level 133L, Potassium Level 3.4L, Chloride Level 104, Carbon Dioxide Level 17L, Calcium Level 7.9L, Phosphorus Level 6.2H, Random Vancomycin Level 16.8, B-Hydroxybutyrate 0.64 08/03/18 05:04: Bedside Glucose (Misc Panel) 147H 08/03/18 06:16: Bedside Glucose (Misc Panel) 152H 08/03/18 06:42: Lactic Acid Level 0.6 08/03/18 06:59: Bedside Glucose (Misc Panel) 131H 08/03/18 08:20: Bedside Glucose (Misc Panel) 136H 08/03/18 09:30: Bedside Glucose (Misc Panel) 129H CBC/BMP Laboratory Tests 08/02/18 20:34 Calcium Level 8.0 L 08/03/18 00:20 Calcium Level 7.9 L 08/03/18 05:01 Calcium Level 7.9 L, Red Blood Count 3.92 L, Mean Corpuscular Volume 82.4, Mean Corpuscular Hemoglobin 27.0, Mean Corpuscular Hemoglobin Concent 32.8, Red Cell Distribution Width 15.7 H, Neutrophils (%) (Auto) 65.0, Lymphocytes (%) (Auto) 23.1 L, Monocytes (%) (Auto) 9.3 H, Eosinophils (%) (Auto) 2.0, Basophils (%) (Auto) 0.3, Neutrophils # (Auto) 3.9, Lymphocytes # (Auto) 1.4 L, Monocytes # (Auto) 0.6, Eosinophils # (Auto) 0.1, Basophils # (Auto) 0.0 Microbiology Microbiology 08/01/18 Gram Stain - Final, Resulted 08/01/18 Wound Culture - Preliminary, Resulted Staph.aureus Methicillin Resis Allergies Coded Allergies: No Known Allergies (Verified Allergy, Unknown, 07/31/18) Home Medications Scheduled Omeprazole Magnesium (Prilosec Otc) 20 Mg Tablet.dr, 20 MG PO DAILY, (Reported) Scheduled PRN Ibuprofen (Ibuprofen) 200 Mg Tablet, 600 MG PO Q6H PRN for PAIN, (Reported) Jayne Denise Aug 03, 2018 10:07
[2018-08-03 11:18] LABS: TOTAL PROTEIN 5.7 GM/DL (6.4-8.2)
[2018-08-03 11:42] VITALS: BP 121/69
[2018-08-03] MEDS ORDERED: MORPHINE 4 MG/ML 1ML VIAL/SYRINGE (J2270) IV STA (11:50)
[2018-08-03 11:54] LABS: APPEARANCE, URINE CLEAR (CLEAR); BACTERIA, URINE AUTO 1+ (NEGATIVE); BILIRUBIN, URINE AUTO NEGATIVE (NEGATIVE); BLOOD, URINE BLOOD 1+ (NEGATIVE); COLOR, URINE YELLOW (YELLOW); GLUCOSE, URINE (UA) AUTO NEGATIVE (NEGATIVE); KETONE, URINE AUTO NEGATIVE (NEGATIVE); LEUKOCYTE ESTERASE, URINE AUTO NEGATIVE (NEGATIVE); MUCUS, URINE SMALL (NEGATIVE); NITRITE, URINE AUTO NEGATIVE (NEGATIVE); PROTEIN, URINE AUTO NEGATIVE (NEGATIVE); RBC, URINE AUTO 2 /HPF (0-3); SQUAMOUS EPITHELIAL CELL UR AU 0 /HPF (0-6); UROBILINOGEN, URINE AUTO 0.2 mg/dL (0.0-2.0); WBC, URINE AUTO 13 /HPF (0-3)
[2018-08-03] MEDS ORDERED: SODIUM BICARBONATE 150 MEQ in D5W 1,000 ML IV SCH (12:00)
[2018-08-03 12:16] LABS: CREATININE,RANDOM URINE 45.7 MG/DL; TOTAL PROTEIN,RANDOM URINE 57.5 MG/DL (0.0-12.0); URINE TOTAL PROTEIN 57.5 MG/DL (0-12)
[2018-08-03] MEDS ORDERED: DOCUSATE SODIUM 100 MG CAP PO PRN (12:45)
[2018-08-03 13:02] LABS: CALCIUM LEVEL 8.1 MG/DL (8.5-10.1); CREATININE FOR GFR 3.15 MG/DL (0.55-1.30); GLOMERULAR FILTRATION RATE 16.4 (>51); POTASSIUM SERUM 3.6 MEQ/L (3.5-5.1)
--- NOTE | 2018-08-03 14:08 | CR ---
DATE OF CONSULTATION: 08/03/[address] Bria Louis REASON FOR CONSULTATION: Worsening kidney injury in this patient with left leg venous stasis ulcer/wound. HISTORY OF PRESENT ILLNESS: Alberta Hodges is a 52-year-old female who self reports that she has not had blood work since the and is unsure of any undiagnosed medical problems. She does not follow up with any physician regularly except seeing an outsole cutter machine every few years as needed. She has morbid obesity with a body mass index (BMI) of almost 40 and she has had chronic worsening ulcer on her left leg. The patient reports that the ulcer was getting more and more painful over the past 2 weeks. At home, she was taking 4 tablets of ibuprofen every 4 hours for the past 2 weeks, more than 15 tablets a day. When the leg pain became completely unbearable, she went to the emergency room in [place] and there she had blood work that showed a creatinine of 1.5 with metabolic acidosis and she reportedly had a deep vein thrombosis (DVT) scan in [place] that was negative for DVT. She was transferred to [facility] for further evaluation and care. She denied having any contrast procedures in [place] emergency room. Here in [facility], her peak creatinine was noted to be 3.4 yesterday with ongoing metabolic acidosis. The patient was started on vigorous IV fluids and nephrology consultation was requested for help in the management of her kidney injury. The patient is seen and examined this morning at the bedside. Her main complaint is left leg pain. She otherwise denies any shortness of breath or chest pain. PAST MEDICAL HISTORY: Morbid obesity, recently diagnosed diabetes, venous stasis ulcer, history of iritis, has not had prior blood work since the , and does not follow up with health care providers. FAMILY HISTORY: Father hypertension and irregular heartbeat. ALLERGIES: No known drug allergies. HOME MEDICATIONS: Heavy use of ibuprofen and also chronic use of Prilosec. SOCIAL HISTORY: Current smoker. Occasional alcohol. Denies drug use. PAST SURGICAL HISTORY: Denies any surgical history. REVIEW OF SYSTEMS: Constitutional: She denies fevers or chills. Eyes: She reports a history of iritis. She denies any current visual changes. ENT: She denies tinnitus or rhinorrhea. Pulmonary: She denies shortness of breath or cough. Cardiac: She denies chest pain, palpitations or edema. Skin: She reports chronic ulcer and wound on the left leg which has been worsening and becoming more and more painful and with drainage. Gastrointestinal (GI): She denies nausea or diarrhea. Genitourinary: She denies dysuria or hematuria. Hematologic: She denies easy bleeding or bruising tendency. Musculoskeletal: She denies any new arthralgias or history of gout. Endocrine: Recently diagnosed diabetic. Denies polydipsia or polyuria. Neurologic: Denies seizure or syncope. Remainder review of systems is negative or as per history of present illness (HPI). PHYSICAL EXAMINATION: Vital Signs: Temperature 98.4, pulse 61, respiratory rate 14, blood pressure 122/60, saturating 96% on room air. Intake yesterday was 3.5 liters. Urine output yesterday was 1600. Weight in the bed scale today is not recorded. General: The patient is seen lying in bed, a middle-aged female, obese, in no acute distress. Wears glasses. Extraocular muscles are intact. Tongue is moist. Neck is supple. Jugular veins are not elevated. Cardiac: S1 and S2. Regular rate and rhythm. No edema in the right lower extremity, no edema in the dependent areas. Lungs are clear to auscultation bilaterally. No crackle, rale or rhonchus. Abdomen is soft and nontender. There are bowel sounds. The extremities show only edema in the left leg where her wounds are, otherwise the right leg has no edema. There is a wound on the left leg which is covered with dressings and wraps and is not examined. Neurologic: She is oriented times three. No focal deficits. Moves all four extremities on command. LABORATORY DATA: Sodium 133, potassium 3.4, bicarbonate 17, anion gap of 12, BUN 47, creatinine 3.1, lactic acid 0.6, hemoglobin 10.6, random vancomycin 16. Renal ultrasound on August 03 essentially unremarkable, no hydronephrosis. Spot urine protein creatinine ratio about 1 gram of protein. INPATIENT MEDICATIONS: The patient received D5 half NS with 10 mEq of potassium chloride at 200 mL an hour for several bags. She received vancomycin and Zosyn, both renally dosed. Mylanta p.r.n. Lovenox 30 mg subcutaneous daily. Milk of magnesium p.r.n., morphine p.r.n., omeprazole 20 mg p.o. daily, potassium 40 mEq p.o. daily, sucralfate 1 gram p.o. before meals and at bedtime. PROBLEMS: 1. Acute kidney injury (STACY) on chronic kidney disease (CKD). The patient likely does have underlying chronic kidney disease; however, she reports she has not had any blood work done since the so her baseline GFR is unknown. Her urine studies are notable for subnephrotic protein most likely as a consequence of diabetes and obesity, although paraprotein workup was sent by the hospitalist and pending. In any case, she has had worsening renal function over the past 2 days. The patient endorses a very heavy use of NSAIDs over the past 2 weeks, more than 15 tablets of ibuprofen per day. Her renal ultrasound was negative for any obstruction or post renal findings. At present, I would continue with supportive care with holding of nephrotoxins, continuation of IV fluids, correction of electrolytes, and we will continue to monitor her urine output and renal panel. 2. Anion gap metabolic acidosis. It is likely secondary to decremental decrease in GFR and acute kidney injury. Her IV fluids are being formulated for sodium bicarbonate. In view of serum bicarbonate of 15 on the most recent chemistry her blood gas looked compatible with metabolic acidosis with respiratory compensation. Her serum lactic was negative and beta hydroxybutyrate was likewise negative. 3. Hypokalemia in the setting of metabolic acidosis indicates that she is total body potassium deplete. I am adding potassium to her IV fluids. 4. Left leg venous stasis ulcers and cellulitis. She had a negative DVT scan in [place]. Wound care is following her antimicrobials as per primary team. Please dose for GFR. 5. Newly diagnosed diabetes. Duration of undiagnosed diabetes is unknown. She is advised that she needs to now follow up regularly with the primary care provider. There is likely chronic kidney disease underlying but baseline renal function is unknown given the lack of prior labs. 6. Disposition. Continue IV fluids now formulated to contain both bicarbonate and potassium. Will get a repeat renal panel this evening for monitoring of her electrolytes and her acidemia. Plan of care was discussed with hospitalist. Thank you for involving me in the care of Ms. Hodges. I will be happy to follow her along with you.
--- NOTE | 2018-08-03 14:23 | REP ---
Bilateral lower extremity arterial duplex ultrasound for left lower leg wound and left leg pain: Right lower extremity: Peak Systolic Phasicity Velocity AMPHIBIAN CREWMEMBER 135 triphasic Profunda 127 triphasic SFA prox 101 triphasic SFA mid 71.1 triphasic SFA dist 84.7 triphasic Pop 34.6 triphasic LYNDA prox 41.7 triphasic Tib/P tr 109 triphasic ESTATE PLANNING PARALEGAL pr 75.2 triphasic ESTATE PLANNING PARALEGAL dst 67.8 triphasic LYNDA dst 52.6 biphasic Left lower extremity: Peak Systolic Phasicity Velocity AMPHIBIAN CREWMEMBER 154 triphasic Profunda 68 triphasic SFA prox 119 triphasic SFA mid 118 triphasic SFA dist 114 triphasic Pop 158 triphasic LYNDA prox 215 biphasic Tib/P tr 181 triphasic ESTATE PLANNING PARALEGAL pr 127 triphasic ESTATE PLANNING PARALEGAL dst 107 triphasic LYNDA dst 103 triphasic The study is technically difficult because of patient body habitus with difficulty visualizing the vessels. No significant atheromatous plaque or calcifications are identified. Flow velocity throughout the left lower extremity is overall increased, likely a consequence of increased blood flow to the left leg wound. There is mild focal stenosis of the proximal left LYNDA. Electronically Signed by Adriano Mesa MD 08/03/2018 02:14 P
[2018-08-03] MEDS: POTASSIUM CHLORIDE IV SCH (15:58)
[2018-08-03] MEDS: SODIUM BICARBONATE IV SCH (15:58)
[2018-08-03] MEDS: D5W IV SCH (15:58)
[2018-08-03 16:37] VITALS: BP 139/63
[2018-08-03 20:00] VITALS: BP 135/64
[2018-08-03 21:11] LABS: CALCIUM LEVEL 7.5 MG/DL (8.5-10.1); CREATININE FOR GFR 2.94 MG/DL (0.55-1.30); GLOMERULAR FILTRATION RATE 17.7 (>51)
[2018-08-04] VITALS: BP 118/53
[2018-08-04] MEDS: POTASSIUM CHLORIDE IV SCH (00:15)
[2018-08-04] MEDS: D5W IV SCH (00:15)
[2018-08-04] MEDS: SODIUM BICARBONATE IV SCH (00:15)
[2018-08-04] MEDS: MORPHINE 4 MG/ML 1ML VIAL/SYRINGE (J2270) IV PRN ×2 (00:16→11:59)
[2018-08-04 04:00] VITALS: BP 104/60
[2018-08-04] MEDS: SODIUM CHLORIDE 0.9% INJ 10 ML SYR IV SCH ×2 (05:11→18:00)
[2018-08-04 05:28] LABS: BASO % 0.4 % (0.0-1.0); EOS # 0.2 10^3/uL (0.0-0.50); EOS % 3.2 % (0.0-3.0); HEMATOCRIT 30.7 % (36.0-47.0); HEMOGLOBIN 10.1 g/dl (12.0-15.5); LYMPH # 1.5 10^3/uL (1.5-4.5); LYMPH % 29.6 % (24.0-44.0); MEAN CORPUSCULAR HEMOGLOBIN 26.5 pg (27.0-33.0); MEAN CORPUSCULAR HGB CONC 32.9 g/dl (32.0-36.5); MEAN CORPUSCULAR VOLUME 80.6 fl (80.0-96.0); MONO # 0.5 10^3/uL (0.0-0.8); MONO % 10.1 % (0.0-5.0); NEUTROPHILS # 2.9 10^3/uL (1.8-7.7); NEUTROPHILS % 56.3 % (36.0-66.0); PLATELET COUNT, AUTOMATED 239 10^3/uL (150-450); RED BLOOD COUNT 3.81 10^6/uL (4.00-5.40); WHITE BLOOD COUNT 5.1 10^3/uL (4.0-10.0)
[2018-08-04] MEDS: SUCRALFATE 1 GM TAB PO SCH ×4 (07:48→21:59)
[2018-08-04 08:00] VITALS: BP 112/69
[2018-08-04 08:36] LABS: VANCOMYCIN LEVEL TROUGH 17.3 UG/ML (10.0-20.0)
[2018-08-04] MEDS: OMEPRAZOLE 20 MG CAP PO SCH (08:49)
[2018-08-04] MEDS: MORPHINE 15 MG SA TAB PO SCH ×2 (08:49→21:59)
[2018-08-04] MEDS: SILVER SULFADIAZINE 1% CR 400 GM JAR TOP SCH ×2 (08:50→21:00)
[2018-08-04] MEDS: ENOXAPARIN 30 MG/0.3 ML SYR (J1650) SC SCH (08:50)
[2018-08-04] MEDS: VANCOMYCIN HCL 750 MG, VIAL MATE ADAPTER 1 EACH in D5W 250 ML IV SCH (08:55)
[2018-08-04 08:57] LABS: ALBUMIN 1.8 GM/DL (3.2-5.2); BILIRUBIN,TOTAL 0.2 MG/DL (0.2-1.0); CALCIUM LEVEL 8.5 MG/DL (8.5-10.1); CREATININE FOR GFR 2.72 MG/DL (0.55-1.30); GLOMERULAR FILTRATION RATE 19.4 (>51); MAGNESIUM LEVEL 2.5 MG/DL (1.8-2.4); POTASSIUM SERUM 3.5 MEQ/L (3.5-5.1); TOTAL PROTEIN 6.4 GM/DL (6.4-8.2)
--- NOTE | 2018-08-04 09:26 | IPNPDOC ---
Date Seen The patient was seen on 08/04/18. Progress Note Vascular Surgery Dr Jennings REASON FOR CONSULTATION: non healing ulcer LLE. HPI: 52 year old female transferred from [facility] for severe LLE venous stasis ulcers. The patient had gone to [place] ED with complaints of left lower leg swelling, drainage which started 6 months ago but was getting progressively worse. Has not seen a physician for a long time. She says that the LLE really became bad over the past 2 weeks when the wound started draining and spreading around her leg. She reports pain on the left leg from the knee to the ankle, since her wound has been worse in the past 2 weeks. She was admitted for cellulitis, infected venous stasis ulcers and venous stasis dermatitis. Vascular surgery is consulted re non healing ulcers LLE. Denies any fevers, chills, weakness, fatigue, Headache, Chest Pain, Shortness of breath, cough, palpitations, abdominal pain, N/V/D or changes in bowel or bladder habits. PMHx: Obesity. BMI 40.2 chronic venous insufficiency DM2 diagnosed this admission. CKD vs STACY, noted this admission. SCr 3.11. PSHX: denies PE: GEN: 52yoF, appears stated age. Pain with movement of LLE. Alert and oriented x 3. HEENT: Normocephalic, atraumatic.Moist mucous membranes. CHEST: Regular rate and rhythm, +S1, +S2 LUNGS: Clear to auscultation bilaterally. No wheezes, rales, or rhonchi. ABD: Round, soft, non-tender, non-distended. SKIN: superficial varicose veins noted. Circumferential dark red appearing, bleeding wound LLE from ankle area to mid tibial area with fibrinous exudate, and necrotic appearing tissue. NEURO: Alert and oriented x 3. No focal deficits appreciated. WOUND CULTURE Preliminary Organism 1 STAPH.AUREUS METHICILLIN RESIS QUANTITY OF GROWTH HEAVY DVT scan done in other hospital is negative. A&P: 1. Non healing LLE wound. -Continue with wound care. Possible consider wound debridement, Dr Jennings to further review and examine. -BLE arterial US . No significant atheromatous plaque or calcifications are identified. Flow velocity throughout the left lower extremity is overall increased, likely a consequence of increased blood flow to the left leg wound. There is mild focal stenosis of the proximal left LYNDA. Electronically Signed by Adriano Mesa MD 08/03/2018 02:14 P -Request BLE venous US with VVI to further asses for any possible intervention. -Continue antibiotics as per Primary team. WC positive for MRSA. IV Vanco. -Pain control as per primary team. 2. STACY vs CKD. Nephrology consulted. SCr 2.72 , unknown baseline. Monitor. 3. DVT prophylaxis. Lovenox. VS, I&O, 24H, Fishbone Vital Signs/I&O Vital Signs Date Time Temp Pulse Resp B/P (MAP) Pulse Ox O2 Delivery O2 Flow Rate FiO2 08/04/18 08:49 21 08/04/18 04:00 98.0 67 104/60 (75) 97 08/03/18 08:16 95 I&O- Last 24 Hours up to 6 AM 08/04/18 06:00 Intake Total 4995 ml Output Total 2700 ml Balance 2295 ml Laboratory Data 24H LABS Laboratory Tests 2 08/03/18 09:30: Bedside Glucose (Misc Panel) 129H 08/03/18 10:25: Anion Gap 14, Glomerular Filtration Rate 16.4L, Blood Urea Nitrogen 46H, Creatinine 3.15H, Sodium Level 132L, Potassium Level 3.6, Chloride Level 103, Carbon Dioxide Level 15L, Calcium Level 8.1L 08/03/18 10:26: Bedside Glucose (Misc Panel) 152H 08/03/18 10:31: Whole Blood Ionized Calcium 4.6, Total Protein (PEP) 5.7L 08/03/18 11:30: Urine Appearance CLEAR, Urine Color YELLOW, Urine pH 5.0, Urine Specific [place] 1.010, Urine Protein NEGATIVE, Urine Glucose (UA) NEGATIVE, Urine Ketones NE GATIVE, Urine Urobilinogen 0.2, Urine Bilirubin NEGATIVE, Urine Leukocyte Esterase NEGATIVE, Urine Blood 1+H, Urine Nitrite NEGATIVE, Urine WBC (Auto) 13H, Urine RBC (Auto) 2, Urine Hyaline Casts (Auto) 0, Urine Bacteria (Auto) 1+H, Urine Squamous Epithelial Cells 0, Urine Mucus (Auto) SMALL, Urine Sperm (Auto) 08/03/18 11:31: Urine Random Creatinine 45.7, Urine Random Total Protein 57.5H, Urine Total Protein mg/dL 57.5H 08/03/18 16:44: Bedside Glucose (Misc Panel) 106H 08/03/18 20:19: Anion Gap 10, Glomerular Filtration Rate 17.7L, Blood Urea Nitrogen 48H, Creatinine 2.94H, Sodium Level 134L, Potassium Level 4.0, Chloride Level 106, Carbon Dioxide Level 18L, Calcium Level 7.5L 08/03/18 20:46: Bedside Glucose (Misc Panel) 108H 08/04/18 05:10: Immature Granulocyte % (Auto) 0.4, White Blood Count 5.1, Red Blood Count 3.81L, Hemoglobin 10.1L, Hematocrit 30.7L, Mean Corpuscular Volume 80.6, Mean Corpuscular Hemoglobin 26.5L, Mean Corpuscular Hemoglobin Concent 32.9, Red Cell Distribution Width 15.5H, Platelet Count 239, Neutrophils (%) (Auto) 56.3, Lymphocytes (%) (Auto) 29.6, Monocytes (%) (Auto) 10.1H, Eosinophils (%) (Auto) 3.2H, Basophils (%) (Auto) 0.4, Neutrophils # (Auto) 2.9, Lymphocytes # (Auto) 1.5, Monocytes # (Auto) 0.5, Eosinophils # (Auto) 0.2, Basophils # (Auto) 0.0, Nucleated Red Blood Cells % (auto) 0.0 08/04/18 07:45: Anion Gap 6L, Glomerular Filtration Rate 19.4L, Blood Urea Nitrogen 47H, Creatinine 2.72H, Sodium Level 132L, Potassium Level 3.5, Chloride Level 104, Carbon Dioxide Level 22, Calcium Level 8.5, Aspartate Amino Transf (AST/SGOT) 12, Alanine Aminotransferase (ALT/SGPT) 15, Alkaline Phosphatase 75, Total Bilirubin 0.2, Total Protein 6.4, Albumin 1.8L, Magnesium Level 2.5H, Albumin/Globulin Ratio 0.39L, Vancomycin Level Trough 17.3 08/04/18 08:46: Bedside Glucose (Misc Panel) 121H CBC/BMP Laboratory Tests 08/03/18 10:25 Calcium Level 8.1 L 08/03/18 20:19 Calcium Level 7.5 L 08/04/18 05:10 Red Blood Count 3.81 L, Mean Corpuscular Volume 80.6, Mean Corpuscular Hemoglobin 26.5 L, Mean Corpuscular Hemoglobin Concent 32.9, Red Cell Distribution Width 15.5 H, Neutrophils (%) (Auto) 56.3, Lymphocytes (%) (Auto) 29.6, Monocytes (%) (Auto) 10.1 H, Eosinophils (%) (Auto) 3.2 H, Basophils (%) (Auto) 0.4, Neutrophils # (Auto) 2.9, Lymphocytes # (Auto) 1.5, Monocytes # (Auto) 0.5, Eosinophils # (Auto) 0.2, Basophils # (Auto) 0.0 08/04/18 07:45 Calcium Level 8.5, Aspartate Amino Transf (AST/SGOT) 12, Alanine A minotransferase (ALT/SGPT) 15, Alkaline Phosphatase 75, Total Bilirubin 0.2, Total Protein 6.4, Albumin 1.8 L Microbiology Microbiology 08/01/18 Gram Stain - Final, Resulted 08/01/18 Wound Culture - Preliminary, Resulted Staph.aureus Methicillin Resis Jayne Denise Aug 04, 2018 09:26
[2018-08-04] MEDS: SODIUM BICARBONATE 150 MEQ in D5W 1,000 ML IV SCH (10:06)
[2018-08-04] MEDS ORDERED: POTASSIUM CHLORIDE 10 MEQ SR TABLET PO ONE (11:00)
[2018-08-04 12:00] VITALS: BP 131/62
[2018-08-04] MEDS ORDERED: MORPHINE 4 MG/ML 1ML VIAL/SYRINGE (J2270) IV ONE (12:45)
[2018-08-04] MEDS: MORPHINE 30 MG TAB **MSIR PO PRN (12:46)
--- NOTE | 2018-08-04 13:07 | IPNPDOC ---
Date Seen The patient was seen on 08/04/18. Progress Note SUBJECTIVE: SUBJECTIVE: s/p >4liters ivfluids and bicarb gtt managed by nephrology with normalization of metabolic acidosis. creatinine is improved and urine output reviewed. 08/03/18 arterial studies of b/l LE: mild focal stenosis in proximal LYNDA. pt c/o sharp pain with dressing changes. no sob depsite ivfluids. OBJECTIVE: VITALS: PLS SEE BELOW Physical Examination General Exam: Positive: Alert, Cooperative, No Acute Distress Eye Exam: Positive: PERRLA, Conjunctiva & lids normal, EOMI; Negative: Sclera icteric ENT Exam: Positive: Atraumatic, Mucous membr. moist/pink, Pharynx Normal Neck Exam: Positive: Supple; Negative: JVD, thyromegaly Chest Exam: Positivediminished Normal air movement Heart Exam: Positive: Rate Normal, Regular Rhythm, Normal S1, Normal S2; Negative: Murmurs, Rubs Abdomen Exam: Positive: Normal bowel sounds, Soft; Negative: Tenderness, Hepatospenomegaly Extremity Exam: Positive: Edema, Tenderness (left leg), Other (venous stasis changes in the right . on the left there is venous statis changes, infected multiple stsis ulcers and cellulitis) Skin Exam: Positive: Rash, Breakdown, Lesion, Other skin issue (Left leg with large area of multiple open superficail ulcers with , stasis dermatitis, erythema and inflammation extending from carmelo to ankles) Neuro Exam: Positive: Normal Speech, Strength at 5/5 X4 ext, Normal Tone Psych Exam: Positive: Mental status NL, Memory Intact, Oriented x 3 laboratory data, imaging studies, microbiology: pls see below Assessment/Plan 52 year old morbidly obese female with BMI of 39.9 [address] transferred from [facility] severe left leg infected venous stasis ulcers. patient had gone to [place] ED with complaints of left lower leg swelling, drainage which started 6 months ago getting progressively worse. Now extremely painful and having difficulty in walking so went to the ED. Has not seen a physician for a long time. She says that the leg really became bad over the past 2 weeks when the ulcer started draining. She complains of sevee pain on rika left leg from the knee to the ankle, burning in charcater and dull throbbing sometimes, 10/10 in intensity without any radiation. She is having difficulty walking due to the severe pain. She was admitted for cellulitis, infected venous stais ulcers and venous stasis dermatitis. New onset DM type 2 -treated for mild DKA -most likely brought on by infected left LE chronic venous ulcers -transferred to [facility] 08/02/18 until acidosis is resolved s/p bicarb gtt -insulin iv gtt, q1hr fingersticks, q4hrs bmp until acidosis resolves -s/p ns x 2liters. then d5 with kcl to prevent hypoglycemia -s/p levemir insulin 10 units -bicarbonate 16-17, not improved with ivfluids, antibiotics and sodium bicarb -A1c 7.9 -diabetic teaching -consistent carbs diet -check urine for proteinuria, will need ophthalmology fu to rule out retinopathy, and [id number] md fu as outpt for a1c monitoring -insulin teaching -will need home care at hospital discharge Chronic Left LE infected venous ulcers 07/31/18 iv vanco and zosyn renally dosed by pharmacy DVT scan done in other hospital is negative. consulted General surgery Dr. Stone for debridement and wound management. Per Surgery, vascular surgery consult to confirm venous insufficiency and mgt. Continue with dressing changes and iv antibiotics, especially to cover pseudomonas. currently on iv vanco and iv zosyn. Morbid obesity BMI 39.9 complicating care. at risk for hypercarbia and hypercapnic respiratory failure while on iv morphine, and po norco check nocturnal oximetry flaca protocol acute on ckd3 we do not have any old labs pt has not seen a physician in decades "If it's not broken, don't fix it," per the patient 08/03/18. she does have a low bicarb and high anion gap also had NSAID use prior to hospital admission, now with new onset DM2 IVfluid trial with bicarb gtt which nephrology is managing monitor urine output pharmacy to renally dose iv vanco and zosyn daily weights strict i/o renal us: wnl acute metabolic acidosis, resolved managed by nephrology thought to be due to ckd mild stenosis of proximal LYNDA vascular surgery consulted. Diet: consistent carbs VS, I&O, 24H, Fishbone Vital Signs/I&O Vital Signs Date Time Temp Pulse Resp B/P (MAP) Pulse Ox O2 Delivery O2 Flow Rate FiO2 08/04/18 04:00 98.0 67 18 104/60 (75) 97 08/03/18 08:16 95 I&O- Last 24 Hours up to 6 AM 08/04/18 06:00 Intake Total 4995 ml Output Total 2700 ml Balance 2295 ml Laboratory Data 24H LABS Laboratory Tests 2 08/03/18 08:20: Bedside Glucose (Misc Panel) 136H 08/03/18 09:30: Bedside Glucose (Misc Panel) 129H 08/03/18 10:25: Anion Gap 14, Glomerular Filtration Rate 16.4L, Blood Urea Nitrogen 46H, Creatinine 3.15H, Sodium Level 132L, Potassium Level 3.6, Chloride Level 103, Carbon Dioxide Level 15L, Calcium Level 8.1L 08/03/18 10:26: Bedside Glucose (Misc Panel) 152H 08/03/18 10:31: Whole Blood Ionized Calcium 4.6, Total Protein (PEP) 5.7L 08/03/18 11:30: Urine Appearance CLEAR, Urine Color YELLOW, Urine pH 5.0, Urine Specific [place] 1.010, Urine Protein NEGATIVE, Urine Glucose (UA) NEGATIVE, Urine Ketones NEGATIVE, Urine Urobilinogen 0.2, Urine Bilirubin NEGATIVE, Urine Leukocyte Esterase NEGATIVE, Urine Blood 1+H, Urine Nitrite NEGATIVE, Urine WBC (Auto) 13H, Urine RBC (Auto) 2, Urine Hyaline Casts (Auto) 0, Urine Bacteria (Auto) 1+H, Urine Squamous Epithelial Cells 0, Urine Mucus (Auto) SMALL, Urine Sperm (Auto) 08/03/18 11:31: Urine Random Creatinine 45.7, Urine Random Total Protein 57.5H, Urine Total Protein mg/dL 57.5H 08/03/18 16:44: Bedside Glucose (Misc Panel) 106H 08/03/18 20:19: Anion Gap 10, Glomerular Filtration Rate 17.7L, Blood Urea Nitrogen 48H, Creatinine 2.94H, Sodium Level 134L, Potassium Level 4.0, Chloride Level 106, Carbon Dioxide Level 18L, Calcium Level 7.5L 08/03/18 20:46: Bedside Glucose (Misc Panel) 108H 08/04/18 05:10: Immature Granulocyte % (Auto) 0.4, White Blood Count 5.1, Red Blood Count 3.81L, Hemoglobin 10.1L, Hematocrit 30.7L, Mean Corpuscular Volume 80.6, Mean Corpuscular Hemoglobin 26.5L, Mean Corpuscular Hemoglobin Concent 32.9, Red Cell Distribution Width 15.5H, Platelet Count 239, Neutrophils (%) (Auto) 56.3, Lymphocytes (%) (Auto) 29.6, Monocytes (%) (Auto) 10.1H, Eosinophils (%) (Auto) 3.2H, Basophils (%) (Auto) 0.4, Neutrophils # (Auto) 2.9, Lymphocytes # (Auto) 1.5, Monocytes # (Auto) 0.5, Eosinophils # (Auto) 0.2, Basophils # (Auto) 0.0, Nucleated Red Blood Cells % (auto) 0.0 CBC/BMP Laboratory Tests 08/03/18 10:25 Calcium Level 8.1 L 08/03/18 20:19 Calcium Level 7.5 L 08/04/18 05:10 Red Blood Count 3.81 L, Mean Corpuscular Volume 80.6, Mean Corpuscular Hemoglobin 26.5 L, Mean Corpuscular Hemoglobin Concent 32.9, Red Cell Distribution Width 15.5 H, Neutrophils (%) (Auto) 56.3, Lymphocytes (%) (Auto) 29.6, Monocytes (%) (Auto) 10.1 H, Eosinophils (%) (Auto) 3.2 H, Basophils (%) (Auto) 0.4, Neutrophils # (Auto) 2.9, Lymphocytes # (Auto) 1.5, Monocytes # (Auto) 0.5, Eosinophils # (Auto) 0.2, Basophils # (Auto) 0.0 Microbiology Microbiology 08/01/18 Gram Stain - Final, Resulted 08/01/18 Wound Culture - Preliminary, Resulted Staph.aureus Methicillin Resis KATHRYN DOTSON MD Aug 04, 2018 07:11
[2018-08-04 14:21] VITALS: BP 131/81
--- NOTE | 2018-08-04 14:22 | REP ---
Clinical: Left lower extremity pain with nonhealing open wound . Technique: Leon scale and color Doppler evaluation using linear high frequency transducer with reflux evaluation. Findings: Ultrasound examination of the right and left lower extremity deep venous structures from the common femoral vein to the popliteal vein demonstrates normal compressibility flow and wave patterns in response to respiration and augmentation. There is no evidence for deep venous thrombosis. Evaluation of the right lower extremity demonstrates no evidence for deep or superficial reflux. Evaluation of the left lower extremity demonstrates mild reflux through the greater saphenous vein. Specifically, the proximal saphenous vein measures 9.6 mm diameter with reflux duration 1.8 seconds; the mid greater saphenous vein measures 8.1 mm diameter with reflux duration 1.7 seconds; distal greater saphenous vein measures 11.4 mm diameter with reflux duration 1.6 seconds. Reflux through the lesser saphenous vein measuring 3.8 mm diameter with 0.9 second duration. Impression: No evidence for deep venous thrombosis. Mild reflux through the left saphenous vein. Electronically Signed by Leighton Meade MD 08/04/2018 02:14 P
[2018-08-04] MEDS ORDERED: LIDOCAINE 1% MDV 20ML VIAL As Ordered ONE (15:52)
[2018-08-04] MEDS ORDERED: ISOVUE-300 61% 50ML VIAL (Q9967) As Ordered ONE (16:06)
[2018-08-04 16:39] LABS: CALCIUM LEVEL 8.6 MG/DL (8.5-10.1); CREATININE FOR GFR 2.38 MG/DL (0.55-1.30); GLOMERULAR FILTRATION RATE 22.6 (>51)
[2018-08-04 22:00] VITALS: BP 138/69
[2018-08-05] MEDS: SODIUM BICARBONATE 150 MEQ in D5W 1,000 ML IV SCH (03:13)
[2018-08-05 06:00] VITALS: BP 116/60
[2018-08-05] MEDS: SODIUM CHLORIDE 0.9% INJ 10 ML SYR IV SCH ×2 (06:30→17:16)
[2018-08-05 06:55] LABS: BASO % 0.8 % (0.0-1.0); EOS # 0.2 10^3/uL (0.0-0.50); EOS % 3.3 % (0.0-3.0); HEMATOCRIT 30.6 % (36.0-47.0); HEMOGLOBIN 9.9 g/dl (12.0-15.5); LYMPH # 1.5 10^3/uL (1.5-4.5); LYMPH % 31.3 % (24.0-44.0); MEAN CORPUSCULAR HEMOGLOBIN 26.1 pg (27.0-33.0); MEAN CORPUSCULAR HGB CONC 32.4 g/dl (32.0-36.5); MEAN CORPUSCULAR VOLUME 80.7 fl (80.0-96.0); MONO # 0.7 10^3/uL (0.0-0.8); MONO % 15.1 % (0.0-5.0); NEUTROPHILS # 2.4 10^3/uL (1.8-7.7); NEUTROPHILS % 49.1 % (36.0-66.0); PLATELET COUNT, AUTOMATED 249 10^3/uL (150-450); RED BLOOD COUNT 3.79 10^6/uL (4.00-5.40); WHITE BLOOD COUNT 4.9 10^3/uL (4.0-10.0)
[2018-08-05 08:19] LABS: CALCIUM LEVEL 8.3 MG/DL (8.5-10.1); CREATININE FOR GFR 1.96 MG/DL (0.55-1.30); GLOMERULAR FILTRATION RATE 28.3 (>51); POTASSIUM SERUM 3.6 MEQ/L (3.5-5.1)
[2018-08-05] MEDS: VANCOMYCIN HCL 750 MG, VIAL MATE ADAPTER 1 EACH in D5W 250 ML IV SCH (08:42)
[2018-08-05] MEDS: MORPHINE 15 MG SA TAB PO SCH ×2 (08:44→20:34)
[2018-08-05] MEDS: OMEPRAZOLE 20 MG CAP PO SCH (08:44)
[2018-08-05] MEDS: ENOXAPARIN 30 MG/0.3 ML SYR (J1650) SC SCH (08:44)
[2018-08-05] MEDS: SUCRALFATE 1 GM TAB PO SCH ×4 (08:44→20:33)
[2018-08-05] MEDS: SILVER SULFADIAZINE 1% CR 400 GM JAR TOP SCH (12:11)
[2018-08-05] MEDS: MORPHINE 4 MG/ML 1ML VIAL/SYRINGE (J2270) IV PRN (12:12)
[2018-08-05] MEDS: MORPHINE 30 MG TAB **MSIR PO PRN (13:18)
[2018-08-05 14:00] VITALS: BP 152/77
--- NOTE | 2018-08-05 15:01 | IPN ---
DATE: 08/05/2018 SUBJECTIVE The patient was seen and examined at the bedside. She is morbidly obese, laying in the bed. She still reports that she is unable to walk around because of pain in the leg. She has been having difficulty with urination as reported by nursing staff. The postvoid residual was more than 300 mL. She continues to be on IV bicarb containing fluids. Renal function continues to improve. Creatinine is down to 1.9 today. OBJECTIVE Vital signs: Temperature is 97.8 degrees Fahrenheit. Blood pressure 116/60, pulse is 63, respiratory rate of 18, saturating 98% on room air. Intake and output: Urine output is not recorded overnight. The patient is having incontinent voids. Weight in the bed scale is not available. PHYSICAL EXAMINATION General: The patient is awake, alert, oriented times three, morbidly obese, laying in bed in no apparent distress. Head and neck examination: Extraocular muscles intact. Pupils equally round and reactive to light. Mucous membranes are moist. Neck is supple. I could not appreciate the jugular venous distention (JVD) because of body habitus. Cardiovascular: S1, S2. Regular rate. 2+ edema of the bilateral lower extremities. Respiratory: Chest is clear to auscultation bilaterally. Bilateral equal air entry. No rales or rhonchi. Abdomen: Soft, obese, positive bowel sounds. Nontender. Genitourinary: I did the bedside bladder scan myself holding the abdominal pannus up and there was more than 900 mL of residue urine in the bladder. Musculoskeletal: The patient has a large dressing on the left leg and extremities have about 2+ edema. PACKAGING DESIGNER: No focal deficit. Power is 5/5 in bilateral upper extremities. LAB REVIEW: CBC showed a WBC of 4.9, hemoglobin 9.9, platelets are 249. BMP showed sodium 136, potassium 3.6, chloride 105, bicarb 24, BUN 42, creatinine is 1.9, it was 2.3 yesterday, calcium is 8.3. IMAGING STUDIES The patient had the bilateral lower extremity Doppler, which showed no evidence of DVT. CURRENT INPATIENT MEDICATIONS: The patient's medications were all reviewed by me. She is currently getting IV bicarb at 75 mL an hour for a total of 2 liters. She continues to be on IV vancomycin. There is no other change in the medications today as compared with yesterday. ASSESSMENT/PLAN 1. Acute kidney injury. Baseline renal function is not known. Acute kidney injury (STACY) is most likely secondary to use of high-dose NSAIDs. The patient is getting IV fluid hydration. Renal function is improving, creatinine is down to 1.9. 2. Urinary retention. The patient is laying down. She is unable to walk around because of left leg pain and she has difficulty voiding in the bed. I am going to have the Desai catheter placed because postvoid residual was more than 900 mL. The patient will keep the Desai catheter in for at least 48 hours; that will help with the urinary retention and with improvement of renal function as well. 3. Normal anion gap metabolic acidosis. The patient is currently on IV bicarb containing fluid. Bicarb level has improved to 24. If needed once the IV fluids are stopped, patient will be started on oral bicarbonate. 4. Left leg ulcer. The patient is getting vancomycin for Methicillin-resistant Staphylococcus aureus (MRSA) n the left leg. The rest of the management is as per primary team. 5. Newly diagnosed diabetes mellitus. Insulin is currently on hold because of low blood sugars. The rest of the management is as per primary team.
[2018-08-05 22:00] VITALS: BP 143/68
[2018-08-06] MEDS: MORPHINE 4 MG/ML 1ML VIAL/SYRINGE (J2270) IV PRN ×2 (05:26→17:13)
[2018-08-06] MEDS: SODIUM CHLORIDE 0.9% INJ 10 ML SYR IV PRN (05:27)
[2018-08-06] MEDS: SODIUM CHLORIDE 0.9% INJ 10 ML SYR IV SCH ×2 (05:27→17:13)
[2018-08-06] MEDS: SILVER SULFADIAZINE 1% CR 400 GM JAR TOP SCH ×2 (05:28→15:57)
[2018-08-06 06:00] VITALS: BP 158/82
[2018-08-06 07:48] LABS: BASO % 0.9 % (0.0-1.0); EOS # 0.1 10^3/uL (0.0-0.50); EOS % 2.4 % (0.0-3.0); HEMATOCRIT 31.5 % (36.0-47.0); HEMOGLOBIN 10.4 g/dl (12.0-15.5); LYMPH # 1.2 10^3/uL (1.5-4.5); LYMPH % 27.1 % (24.0-44.0); MEAN CORPUSCULAR HEMOGLOBIN 26.9 pg (27.0-33.0); MEAN CORPUSCULAR VOLUME 81.6 fl (80.0-96.0); MONO # 0.5 10^3/uL (0.0-0.8); MONO % 11.2 % (0.0-5.0); NEUTROPHILS # 2.6 10^3/uL (1.8-7.7); NEUTROPHILS % 57.3 % (36.0-66.0); PLATELET COUNT, AUTOMATED 251 10^3/uL (150-450); RED BLOOD COUNT 3.86 10^6/uL (4.00-5.40); WHITE BLOOD COUNT 4.6 10^3/uL (4.0-10.0)
[2018-08-06] MEDS: SUCRALFATE 1 GM TAB PO SCH ×2 (08:11→12:00)
[2018-08-06] MEDS: MORPHINE 15 MG SA TAB PO SCH (08:12)
[2018-08-06] MEDS: OMEPRAZOLE 20 MG CAP PO SCH (08:13)
[2018-08-06] MEDS: ENOXAPARIN 30 MG/0.3 ML SYR (J1650) SC SCH (08:13)
[2018-08-06] MEDS: VANCOMYCIN HCL 750 MG, VIAL MATE ADAPTER 1 EACH in D5W 250 ML IV SCH (08:13)
[2018-08-06 08:15] LABS: VANCOMYCIN LEVEL TROUGH 14.7 UG/ML (10.0-20.0)
[2018-08-06 09:02] LABS: CALCIUM LEVEL 8.9 MG/DL (8.5-10.1); CREATININE FOR GFR 1.58 MG/DL (0.55-1.30); GLOMERULAR FILTRATION RATE 36.3 (>51); POTASSIUM SERUM 3.1 MEQ/L (3.5-5.1)
[2018-08-06 09:03] LABS: ALBUMIN 1.8 GM/DL (3.2-5.2); PHOSPHORUS LEVEL 3.1 MG/DL (2.5-4.9)
[2018-08-06] MEDS ORDERED: POTASSIUM CHLORIDE 10 MEQ SR TABLET PO ONE (11:00)
--- NOTE | 2018-08-06 13:00 | IPNPDOC ---
Date Seen The patient was seen on 08/06/18. Progress Note SUBJECTIVE: Lying comfortably wiht left leg on a pillow. RN says she still moans in pain with dressing changes, but gets iv morphine and po morphine which relieves the pain. Pt's creatinine is back to normal as well as the bicarbonate managed by nephrology. She c/o slight cough and sob without fever or chillls. 08/03/18 arterial studies of b/l LE: mild focal stenosis in proximal LYNDA. pt c/o sharp pain with dressing changes. OBJECTIVE: VITALS: PLS SEE BELOW Physical Examination General Exam: Positive: Alert, Cooperative, No Acute Distress Eye Exam: Positive: PERRLA, Conjunctiva & lids normal, EOMI; Negative: Sclera icteric ENT Exam: Positive: Atraumatic, Mucous membr. moist/pink, Pharynx Normal Neck Exam: Positive: Supple; Negative: JVD, thyromegaly Chest Exam: Positivediminished Normal air movement Heart Exam: Positive: Rate Normal, Regular Rhythm, Normal S1, Normal S2; Negative: Murmurs, Rubs Abdomen Exam: Positive: Normal bowel sounds, Soft; Negative: Tenderness, Hepatospenomegaly Extremity Exam: Positive: Edema, Tenderness (left leg), Other (venous stasis changes in the right . on the left there is venous statis changes, infected multiple stsis ulcers and cellulitis) Skin Exam: Positive: Rash, Breakdown, Lesion, Other skin issue (Left leg with large area of multiple open superficail ulcers with , stasis dermatitis, erythema and inflammation extending from carmelo to ankles) Neuro Exam: Positive: Normal Speech, Strength at 5/5 X4 ext, Normal Tone Psych Exam: Positive: Mental status NL, Memory Intact, Oriented x 3 laboratory data, imaging studies, microbiology: pls see below Assessment/Plan 52 year old morbidly obese female with BMI of 39.9 was transferred from [facility] severe left leg infected venous stasis ulcers. patient had gone to [facility] ED with complaints of left lower leg swelling, drainage which started 6 months ago getting progressively worse. Now extremely painful and having difficulty in walking so went to the ED. Has not seen a physician for a long time. She says that the leg really became bad over the past 2 weeks when the ulcer started draining. She complains of sevee pain on rika left leg from the knee to the ankle, burning in charcater and dull throbbing sometimes, 10/10 in intensity without any radiation. She is having difficulty walking due to the severe pain. She was admitted for cellulitis, infected venous stais ulcers and venous stasis dermatitis. New onset DM type 2 -treated for mild DKA -most likely brought on by infected left LE chronic venous ulcers -transferred to [facility] 08/02/18 until acidosis is resolved s/p bicarb gtt -insulin iv gtt, q1hr fingersticks, q4hrs bmp until acidosis resolves -s/p ns x 2liters. then d5 with kcl to prevent hypoglycemia -s/p levemir insulin 10 units -bicarbonate 16-17, not improved with ivfluids, antibiotics and sodium bicarb -A1c 7.9 -diabetic teaching -consistent carbs diet -check urine for proteinuria, will need ophthalmology fu to rule out retinopathy, and [id number] md fu as outpt for a1c monitoring -insulin teaching -will need home care at hospital discharge Chronic Left LE infected venous ulcers 07/31/18 iv vanco and zosyn renally dosed by pharmacy DVT scan done in other hospital is negative. consulted General surgery Dr. Stone for debridement and wound management. Per Surgery, vascular surgery consult to confirm venous insufficiency and mgt. Continue with dressing changes and iv antibiotics, especially to cover pseudo monas. currently on iv vanco and iv zosyn. Morbid obesity BMI 39.9 complicating care. at risk for hypercarbia and hypercapnic respiratory failure while on iv morphine, and po norco check nocturnal oximetry flaca protocol acute on ckd3 we do not have any old labs pt has not seen a physician in decades "If it's not broken, don't fix it," per the patient 08/03/18. she does have a low bicarb and high anion gap also had NSAID use prior to hospital admission, now with new onset DM2 IVfluid trial with bicarb gtt which nephrology is managing monitor urine output pharmacy to renally dose iv vanco and zosyn daily weights strict i/o renal us: wnl acute metabolic acidosis, resolved managed by nephrology thought to be due to ckd mild stenosis of proximal LYNDA vascular surgery consulted. Diet: consistent carbs VS, I&O, 24H, Fishbone Vital Signs/I&O Vital Signs Date Time Temp Pulse Resp B/P (MAP) Pulse Ox O2 Delivery O2 Flow Rate FiO2 08/06/18 05:36 16 08/05/18 22:39 63 89 Room Air 08/05/18 22:00 98.3 143/68 (93) 08/03/18 08:16 95 I&O- Last 24 Hours up to 6 AM 08/06/18 06:00 Intake Total 2355 ml Output Total 3150 ml Balance -795 ml Laboratory Data 24H LABS Laboratory Tests 2 08/05/18 07:10: Bedside Glucose (Misc Panel) 116H 08/05/18 21:04: Bedside Glucose (Misc Panel) 102 08/06/18 06:23: Bedside Glucose (Misc Panel) 123H Microbiology Microbiology 08/01/18 Gram Stain - Final, Complete 08/01/18 Wound Culture - Final, Complete Staph.aureus Methicillin Resis Morganella Morganii Ssp Miguel Myroides Species KATHRYN DOTSON MD Aug 06, 2018 06:35
--- NOTE | 2018-08-06 13:01 | IPNPDOC ---
Date Seen The patient was seen on 08/05/18. Progress Note SUBJECTIVE:still on bicarb gtt managed by nephrology. stable for medsurg. no other issues aside from pain with dressing changes. no sob. OBJECTIVE: VITALS: PLS SEE BELOW Physical Examination General Exam: Positive: Alert, Cooperative, No Acute Distress Eye Exam: Positive: PERRLA, Conjunctiva & lids normal, EOMI; Negative: Sclera icteric ENT Exam: Positive: Atraumatic, Mucous membr. moist/pink, Pharynx Normal Neck Exam: Positive: Supple; Negative: JVD, thyromegaly Chest Exam: Positivediminished Normal air movement Heart Exam: Positive: Rate Normal, Regular Rhythm, Normal S1, Normal S2; Negative: Murmurs, Rubs Abdomen Exam: Positive: Normal bowel sounds, Soft; Negative: Tenderness, Hepatospenomegaly Extremity Exam: Positive: Edema, Tenderness (left leg), Other (venous stasis changes in the right . on the left there is venous statis changes, infected multiple stsis ulcers and cellulitis) Skin Exam: Positive: Rash, Breakdown, Lesion, Other skin issue (Left leg with large area of multiple open superficail ulcers with , stasis dermatitis, erythema and inflammation extending from carmelo to ankles) Neuro Exam: Positive: Normal Speech, Strength at 5/5 X4 ext, Normal Tone Psych Exam: Positive: Mental status NL, Memory Intact, Oriented x 3 laboratory data, imaging studies, microbiology: pls see below Assessment/Plan 52 year old morbidly obese female with BMI of 39.9 was transferred from [facility] severe left leg infected venous stasis ulcers. patient had gone to [place] ED with complaints of left lower leg swelling, drainage which started 6 months ago getting progressively worse. Now extremely painful and having difficulty in walking so went to the ED. Has not seen a physician for a long time. She says that the leg really became bad over the past 2 weeks when the ulcer started draining. She complains of sevee pain on rika left leg from the knee to the ankle, burning in charcater and dull throbbing sometimes, 10/10 in intensity without any radiation. She is having difficulty walking due to the severe pain. She was admitted for cellulitis, infected venous stais ulcers and venous stasis dermatitis. New onset DM type 2 -treated for mild DKA -most likely brought on by infected left LE chronic venous ulcers -transferred to [facility] 08/02/18 until acidosis is resolved s/p bicarb gtt -insulin iv gtt, q1hr fingersticks, q4hrs bmp until acidosis resolves -s/p ns x 2liters. then d5 with kcl to prevent hypoglycemia -s/p levemir insulin 10 units -bicarbonate 16-17, not improved with ivfluids, antibiotics and sodium bicarb -A1c 7.9 -diabetic teaching -consistent carbs diet -check urine for proteinuria, will need ophthalmology fu to rule out reti nopathy, and [id number] md fu as outpt for a1c monitoring -insulin teaching -will need home care at hospital discharge Chronic Left LE infected venous ulcers 07/31/18 iv vanco and zosyn renally dosed by pharmacy DVT scan done in other hospital is negative. consulted General surgery Dr. Stone for debridement and wound management. Per Surgery, vascular surgery consult to confirm venous insufficiency and mgt. Continue with dressing changes and iv antibiotics, especially to cover pseudomonas. currently on iv vanco and iv zosyn. Morbid obesity BMI 39.9 complicating care. at risk for hypercarbia and hypercapnic respiratory failure while on iv morphine, and po norco check nocturnal oximetry flaca protocol acute on ckd3 we do not have any old labs pt has not seen a physician in decades "If it's not broken, don't fix it," per the patient 08/03/18. she does have a low bicarb and high anion gap also had NSAID use prior to hospital admission, now with new onset DM2 IVfluid trial with bicarb gtt which nephrology is managing monitor urine output pharmacy to renally dose iv vanco and zosyn daily weights strict i/o renal us: wnl acute metabolic acidosis, resolved managed by nephrology thought to be due to ckd mild stenosis of proximal LYNDA vascular surgery consulted. Diet: consistent carbs VS, I&O, 24H, Fishbone Vital Signs/I&O Vital Signs Date Time Temp Pulse Resp B/P (MAP) Pulse Ox O2 Delivery O2 Flow Rate FiO2 08/05/18 06:00 97.8 63 18 116/60 (78) 98 08/03/18 08:16 95 I&O- Last 24 Hours up to 6 AM 08/05/18 06:00 Intake Total 1935 ml Output Total 450 ml Balance 1485 ml Laboratory Data 24H LABS Laboratory Tests 2 08/04/18 07:45: Anion Gap 6L, Glomerular Filtration Rate 19.4L, Blood Urea Nitrogen 47H, Creatinine 2.72H, Sodium Level 132L, Potassium Level 3.5, Chloride Level 104, Carbon Dioxide Level 22, Calcium Level 8.5, Aspartate Amino Transf (AST/SGOT) 12, Alanine Aminotransferase (ALT/SGPT) 15, Alkaline Phosphatase 75, Total Bilirubin 0.2, Total Protein 6.4, Albumin 1.8L, Magnesium Level 2.5H, Albumin /Globulin Ratio 0.39L, Vancomycin Level Trough 17.3 08/04/18 08:46: Bedside Glucose (Misc Panel) 121H 08/04/18 11:47: Bedside Glucose (Misc Panel) 167H 08/04/18 16:06: Anion Gap 10, Glomerular Filtration Rate 22.6L, Blood Urea Nitrogen 47H, Creatinine 2.38H, Sodium Level 129L, Potassium Level 4.0, Chloride Level 104, Carbon Dioxide Level 15L, Calcium Level 8.6 08/04/18 19:04: Bedside Glucose (Misc Panel) 109H 08/04/18 20:33: Bedside Glucose (Misc Panel) 95 CBC/BMP Laboratory Tests 08/04/18 07:45 Calcium Level 8.5, Aspartate Amino Transf (AST/SGOT) 12, Alanine Aminotransf erase (ALT/SGPT) 15, Alkaline Phosphatase 75, Total Bilirubin 0.2, Total Protein 6.4, Albumin 1.8 L 08/04/18 16:06 Calcium Level 8.6 Microbiology Microbiology 08/01/18 Gram Stain - Final, Complete 08/01/18 Wound Culture - Final, Complete Staph.aureus Methicillin Resis Morganella Morganii Ssp Miguel Myroides Species KATHRYN DOTSON MD Aug 05, 2018 06:42
[2018-08-06 14:00] VITALS: BP 135/67
--- NOTE | 2018-08-06 14:41 | PHACANCOPD ---
PHARMACY VANCOMYCIN DOSING Pt Demographics Demographics Patient Age:52 , Weight:113.500 , Gender: female Adjusted Body Weight Date: 08/01/18, Adjusted Body Weight: [80.42] Kg Events Past 24 Hours Events Past 24 Hours: NO: Dialysis, Diuretic Therapy, Change in CrCl, Fever, Elevation in WBC, Pending Diagnostics, Pending Procedures, Other Vancomycin Vancomycin indication: CELLULITIS,L.LEG VENOUS STASIS ULCERS Vancomycin Target Ranges: 15-20 mcg/ml Vancomycin Load Y/N: No Load Dose Date Time Vancomycin Load Dose: Date: Time: Vancomycin Dose Date: 08/06/18. Current Vancomycin Dose: [750mg IV q24h] Date: 08/01/18. Current Vancomycin Dose: [1GM Q18H] Intermittent Dosing?: No Labs Labs Vital Signs Label Value Date Time Patient Temperature 98.2 degrees F 08/06/18 0600 Temperature Source Temporal 08/06/18 0600 Item Value Date Time White Blood Count 4.9 10^3/uL 08/05/18 0607 White Blood Count 4.6 10^3/uL 08/06/18 0732 Creatinine 2.38 MG/DL H 08/04/18 1606 Creatinine 1.96 MG/DL H 08/05/18 0601 Creatinine 1.58 MG/DL H 08/06/18 0732 Micro Microbiology 08/01/18 Gram Stain - Final, Complete 08/01/18 Wound Culture - Final, Complete Staph.aureus Methicillin Resis Morganella Morganii Ssp Miguel Myroides Species Creatinine Clearance Date:08/01/18. Creatinine Clearance: [44.62]CALCULATED. Assessment and Plan Maintaining Current Dose?: Yes Reason for dose change: No Dose Change Pharmacist Note Pharmacist Note 08/06: Today is day#7 of treatment with Vancomycin and Zosyn for venous stasis ulcers. Her trough resulted at 14.7 which is within target range. Her STACY is improving with her Scr 1.58 today. Her WBC is within normal limits and she is afebrile. We will continue to monitor and make adjustments as necessary. Date: 08/03/18. Pharmacist note:Vancomycin random drawn this morning reported as 16.8, SCR=3.11, CRCL=26.4 (calculated) Will adjust current Vanco dose to 750mg IV Q24H to begin@0900 this morning. Will draw a trough prior to tomorrow's 0900 dose.-will continue to follow )Date: 08/01/18. Pharmacist note:[id number] Transferred from area facility w/ cellulitis/L-leg venous stasis ulcers Received a dose of Pip/Tazo 3.375 gram and Cipro 400mg prior to transfer. SCR=1.83, Calculqated CRCL= 44.6 [facility] tx includes Pip/Tazo and Pharmacy dosed Vancomycin. Vancomycin 1 gram administered in ED @0115, then will continue with a regimen of 1 gram IV Q18H. First trough will be drawn 08/02@0800( prior to the 3rd dose)- will continue to monitor labs and make adjustments as necessary. REUBEN LAZARO [facility] Aug 06, 2018 14:41
[2018-08-06] MEDS: MORPHINE 30 MG TAB **MSIR PO PRN (15:56)
--- NOTE | 2018-08-06 16:11 | IPN ---
DATE: 08/06/2018 SUBJECTIVE: Patient was seen and examined at the bedside today morning. Patient got Desai catheter placed yesterday. Her renal function continues to improve. She still reports pain in the left leg. She continues to be on intravenous (IV) antibiotics. She denies any other active complaints. OBJECTIVE: VITAL SIGNS: Temperature is 98.2 degrees Fahrenheit, blood pressure 158/82, pulse is 91, respiratory rate of 20, saturating 92% on 2 liters via nasal cannula. INTAKE AND OUTPUT: Urine output recorded is 2.9 liters yesterday, 1000 mL so far today since overnight. Weight in the bed scale is 113.5 kg. PHYSICAL EXAMINATION: GENERAL: Patient is awake, alert, oriented times, morbidly obese, laying in the bed. No apparent distress. HEAD AND NECK EXAMINATION: Extraocular muscles intact. Pupils equally round and reactive to light. Mucous membranes are moist. Neck is supple. There is no jugular venous distention (JVD). CARDIOVASCULAR: S1, S2. Regular rate. 2+ edema of the bilateral lower extremities. RESPIRATORY: Chest is clear to auscultation bilaterally. Bilateral equal air entry. No rales or rhonchi. ABDOMEN: Soft, obese, positive bowel sounds. Nontender. GENITOURINARY: She has an indwelling Desai catheter. Urine in the bag is clear. MUSCULOSKELETAL: She has tenderness in the left leg and she has a dressing on the left leg. 2+ edema of the extremities as noted above. CENTRAL NERVOUS SYSTEM (DIRECT SUPPORT STAFF): No focal deficit. Power is 5/5 in bilateral upper extremities. LABORATORY REVIEW: Complete blood count (CBC) showed a WBC 4.6, hemoglobin 10.4, platelets are 251. Basic metabolic panel (BMP) showed sodium 136, potassium 3.1, chloride 104, bicarbonate 25, BUN 37, creatinine is 1.5, it was 1.9 yesterday, calcium 8.9, phosphorus is 3.1, albumin 1.8. Vancomycin trough is 14.7. CURRENT INPATIENT MEDICATIONS: Patient's medications were all reviewed by me. IV sodium bicarbonate drip has been stopped now. She continues to be on IV vancomycin. Patient was given a dose of potassium chloride 40 mEq by mouth times one dose today. No other change in the medications today as compared with yesterday. ASSESSMENT AND PLAN 1. Acute kidney injury. Patient's renal function continues to improve. She was in urinary retention yesterday. She got Desai catheter placed. IV fluids have been. Creatinine is down to 1.5. Continue to encourage oral hydration. 2. Hypokalemia. Patient was given a dose of potassium chloride 40 mEq by mouth times one dose today. 3. Metabolic acidosis. Bicarbonate level is improving with improvement in the renal function. IV bicarbonate fluids were stopped yesterday. 4. Left leg ulcer. Patient is on IV vancomycin. Vancomycin trough is therapeutic. Dose is as per pharmacology. 5. Newly diagnosed diabetes. Glucose levels have been within 120s, which is optimal. Patient is not requiring insulin at this point. 6. Urinary retention. Patient got Desai catheter placed yesterday. It will be removed after 48 hours. Patient was unable to void because she is laying in the bed and has pain in the left leg.
[2018-08-06] MEDS: SUCRALFATE SUSP 1GM/10ML UD PO SCH ×2 (17:12→20:17)
[2018-08-06] MEDS ORDERED: ACETAMINOPHEN TAB 650MG DOSE (2X325MG) PO PRN (18:45)
[2018-08-06] MEDS ORDERED: MORPHINE 30 MG TAB **MSIR PO ONE (19:00)
[2018-08-06] MEDS ORDERED: MORPHINE 4 MG/ML 1ML VIAL/SYRINGE (J2270) IV ONE (19:00)
[2018-08-06 22:00] VITALS: BP 150/83
[2018-08-07] MEDS: SILVER SULFADIAZINE 1% CR 400 GM JAR TOP SCH ×3 (04:54→21:00)
[2018-08-07] MEDS: SODIUM CHLORIDE 0.9% INJ 10 ML SYR IV SCH ×2 (04:55→18:55)
[2018-08-07] MEDS: oxyCODONE 5MG TAB PO PRN ×3 (04:55→15:17)
[2018-08-07 06:00] VITALS: BP 154/81
[2018-08-07 06:13] LABS: BASO % 0.5 % (0.0-1.0); EOS # 0.1 10^3/uL (0.0-0.50); EOS % 2.3 % (0.0-3.0); HEMATOCRIT 33.2 % (36.0-47.0); HEMOGLOBIN 10.9 g/dl (12.0-15.5); LYMPH # 1.7 10^3/uL (1.5-4.5); LYMPH % 30.8 % (24.0-44.0); MEAN CORPUSCULAR HEMOGLOBIN 26.3 pg (27.0-33.0); MEAN CORPUSCULAR HGB CONC 32.8 g/dl (32.0-36.5); MEAN CORPUSCULAR VOLUME 80.2 fl (80.0-96.0); MONO # 0.6 10^3/uL (0.0-0.8); MONO % 10.8 % (0.0-5.0); NEUTROPHILS # 3.1 10^3/uL (1.8-7.7); NEUTROPHILS % 54.7 % (36.0-66.0); PLATELET COUNT, AUTOMATED 288 10^3/uL (150-450); RED BLOOD COUNT 4.14 10^6/uL (4.00-5.40); WHITE BLOOD COUNT 5.6 10^3/uL (4.0-10.0)
[2018-08-07] MEDS: VANCOMYCIN HCL 750 MG, VIAL MATE ADAPTER 1 EACH in D5W 250 ML IV SCH (08:34)
[2018-08-07] MEDS: OMEPRAZOLE 20 MG CAP PO SCH (08:34)
[2018-08-07] MEDS: SUCRALFATE SUSP 1GM/10ML UD PO SCH ×4 (08:34→22:12)
[2018-08-07] MEDS: ENOXAPARIN 30 MG/0.3 ML SYR (J1650) SC SCH (08:35)
[2018-08-07 10:18] LABS: ALBUMIN 2.1 GM/DL (3.2-5.2); CALCIUM LEVEL 8.6 MG/DL (8.5-10.1); CREATININE FOR GFR 1.3 MG/DL (0.55-1.30); GLOMERULAR FILTRATION RATE 45.4 (>51); PHOSPHORUS LEVEL 3.7 MG/DL (2.5-4.9); POTASSIUM SERUM 3.7 MEQ/L (3.5-5.1)
[2018-08-07 14:00] VITALS: BP_SYST 125; BP_SYST 155; BP_DIAS 69; BP_DIAS 85
--- NOTE | 2018-08-07 14:50 | IPNPDOC ---
Date Seen The patient was seen on 08/07/18. Progress Note SUBJECTIVE: creatinine and bicarbonate are normal, managed by nephrology. pt says iv morphine and po morphine have no effect, and pain is still at 10/10 with dressing changes. Pt is requesting pain meds before and after dressing changes. no fever or chills overnight. pt's pain med has been changed to po oxycodone. She has not gotten out of bed and fuentes to be discontinued Physical therapy has been consulted. OBJECTIVE: VITALS: PLS SEE BELOW Physical Examination General Exam: Positive: Alert, Cooperative, No Acute Distress Eye Exam: Positive: PERRLA, Conjunctiva & lids normal, EOMI; Negative: Sclera icteric ENT Exam: Positive: Atraumatic, Mucous membr. moist/pink, Pharynx Normal Neck Exam: Positive: Supple; Negative: JVD, thyromegaly Chest Exam: Positivediminished Normal air movement Heart Exam: Positive: Rate Normal, Regular Rhythm, Normal S1, Normal S2; Negative: Murmurs, Rubs Abdomen Exam: Positive: Normal bowel sounds, Soft; Negative: Tenderness, Hepatospenomegaly Extremity Exam: Positive: Edema, Tenderness (left leg), Other (venous stasis changes in the right . on the left there is venous statis changes, infected multiple stsis ulcers and cellulitis) Skin Exam: Positive: Rash, Breakdown, Lesion, Other skin issue (Left leg with large area of multiple open superficail ulcers with , stasis dermatitis, erythema and inflammation extending from carmelo to ankles) Neuro Exam: Positive: Normal Speech, Strength at 5/5 X4 ext, Normal Tone Psych Exam: Positive: Mental status NL, Memory Intact, Oriented x 3 laboratory data, imaging studies, microbiology: pls see below Assessment/Plan 52 year old morbidly obese female with BMI of 39.9 was transferred from [facility] severe left leg infected venous stasis ulcers. patient had gone to [place] ED with complaints of left lower leg swelling, drainage which started 6 months ago getting progressively worse. Now extremely painful and having difficulty in walking so went to the ED. Has not seen a physician for a long time. She says that the leg really became bad over the past 2 weeks when the ulcer started draining. She complains of sevee pain on rika left leg from the knee to the ankle, burning in charcater and dull throbbing sometimes, 10/10 in intensity without any radiation. She is having difficulty walking due to the severe pain. She was admitted for cellulitis, infected venous stais ulcers and venous stasis dermatitis. New onset DM type 2 -treated for mild DKA -most likely brought on by infected left LE chronic venous ulcers -transferred to icu 08/02/18 until acidosis is resolved s/p bicarb gtt -insulin iv gtt, q1hr fingersticks, q4hrs bmp until acidosis resolves -s/p ns x 2liters. then d5 with kcl to prevent hypoglycemia -s/p levemir insulin 10 units -bicarbonate 16-17, improved with ivfluids, antibiotics and sodium bicarb -A1c 7.9 -diabetic teaching -consistent carbs diet -check urine for proteinuria, will need ophthalmology fu to rule out retinopathy, and [id number] md fu as outpt for a1c monitoring -insulin teaching -will need home care at hospital discharge Chronic Left LE infected venous ulcers 07/31/18 iv vanco and zosyn renally dosed by pharmacy DVT scan done in other hospital is negative. consulted General surgery Dr. Stone for debridement and wound management. Per Surgery, vascular surgery consult to confirm venous insufficiency and mgt. Continue with dressing changes and iv antibiotics, especially to cover pseudomonas. currently on iv vanco and iv zosyn. Morbid obesity BMI 39.9 complicating care. at risk for hypercarbia and hypercapnic respiratory failure while on iv morphine, and po norco check nocturnal oximetry flaca protocol acute on ckd3, resolved we do not have any old labs pt has not seen a physician in decades "If it's not broken, don't fix it," per the patient 08/03/18. she does have a low bicarb and high anion gap also had NSAID use prior to hospital admission, now with new onset DM2 IVfluid trial with bicarb gtt which nephrology is managing monitor urine output pharmacy to renally dose iv vanco and zosyn daily weights strict i/o renal us: wnl acute metabolic acidosis, resolved managed by nephrology thought to be due to ckd mild stenosis of proximal LYNDA vascular surgery consulted. Diet: consistent carbs VS, I&O, 24H, Fishbone Vital Signs/I&O Vital Signs Date Time Temp Pulse Resp B/P (MAP) Pulse Ox O2 Delivery O2 Flow Rate FiO2 08/07/18 05:25 18 08/06/18 23:51 65 95 Nasal Cannula 2.0 08/06/18 22:00 97.6 150/83 (105) 08/03/18 08:16 95 I&O- Last 24 Hours up to 6 AM 08/07/18 06:00 Intake Total 395 ml Output Total 1475 ml Balance -1080 ml Laboratory Data 24H LABS Laboratory Tests 2 08/06/18 07:32: Immature Granulocyte % (Auto) 1.1, White Blood Count 4.6, Red Blood Count 3.86L, Hemoglobin 10.4L, Hematocrit 31.5L, Mean Corpuscular Volume 81.6, Mean Corpuscular Hemoglobin 26.9L, Mean Corpuscular Hemoglobin Concent 33.0, Red Cell Distribution Width 15.1H, Platelet Count 251, Neutrophils (%) (Auto) 57.3, Lymphocytes (%) (Auto) 27.1, Monocytes (%) (Auto) 11.2H, Eosinophils (%) (Auto) 2.4, Basophils (%) (Auto) 0.9, Neutrophils # (Auto) 2.6, Lymphocytes # (Auto) 1.2L, Monocytes # (Auto) 0.5, Eosinophils # (Auto) 0.1, Basophils # (Auto) 0.0, Nucleated Red Blood Cells % (auto) 0.0, Blood Urea Nitrogen 37H, Creatinine 1.58H, Sodium Level 136, Potassium Level 3.1L, Chloride Level 104, Carbon Dioxide Level 25, Anion Gap 7L, Glomerular Filtration Rate 36.3L, Calcium Level 8.9, Phosphorus Level 3.1, Albumin 1.8L, Vancomycin Level Trough 14.7 08/06/18 11:48: Bedside Glucose (Misc Panel) 120H 08/06/18 16:43: Bedside Glucose (Misc Panel) 121H 08/06/18 20:19: Bedside Glucose (Misc Panel) 131H 08/07/18 05:56: Immature Granulocyte % (Auto) 0.9, White Blood Count 5.6, Red Blood Count 4.14, Hemoglobin 10.9L, Hematocrit 33.2L, Mean Corpuscular Volume 80.2, Mean Corpuscular Hemoglobin 26.3L, Mean Corpuscular Hemoglobin Concent 32.8, Red Cell Distribution Width 14.6H, Platelet Count 288, Neutrophils (%) (Auto) 54.7, Lymphocytes (%) (Auto) 30.8, Monocytes (%) (Auto) 10.8H, Eosinophils (%) (Auto) 2.3, Basophils (%) (Auto) 0.5, Neutrophils # (Auto) 3.1, Lymphocytes # (Auto) 1.7, Monocytes # (Auto) 0.6, Eosinophils # (Auto) 0.1, Basophils # (Auto) 0.0, Nucleated Red Blood Cells % (auto) 0.0 CBC/BMP Laboratory Tests 08/06/18 07:32 Red Blood Count 3.86 L, Mean Corpuscular Volume 81.6, Mean Corpuscular Hemoglobin 26.9 L, Mean Corpuscular Hemoglobin Concent 33.0, Red Cell Distribution Width 15.1 H, Neutrophils (%) (Auto) 57.3, Lymphocytes (%) (Auto) 27.1, Monocytes (%) (Auto) 11.2 H, Eosinophils (%) (Auto) 2.4, Basophils (%) (A uto) 0.9, Neutrophils # (Auto) 2.6, Lymphocytes # (Auto) 1.2 L, Monocytes # (Auto) 0.5, Eosinophils # (Auto) 0.1, Basophils # (Auto) 0.0, Anion Gap 7 L 08/07/18 05:56 Red Blood Count 4.14, Mean Corpuscular Volume 80.2, Mean Corpuscular Hemoglobin 26.3 L, Mean Corpuscular Hemoglobin Concent 32.8, Red Cell Distribution Width 14.6 H, Neutrophils (%) (Auto) 54.7, Lymphocytes (%) (Auto) 30.8, Monocytes (%) (Auto) 10.8 H, Eosinophils (%) (Auto) 2.3, Basophils (%) (Auto) 0.5, Neutrophils # (Auto) 3.1, Lymphocytes # (Auto) 1.7, Monocytes # (Auto) 0.6, Eosinophils # (Auto) 0.1, Basophils # (Auto) 0.0 Microbiology Microbiology 08/01/18 Gram Stain - Final, Complete 08/01/18 Wound Culture - Final, Complete Staph.aureus Methicillin Resis Morganella Morganii Ssp Miguel Myroides Species KATHRYN DOTSON MD Aug 07, 2018 06:26
[2018-08-07] MEDS: oxyCODONE 5MG TAB PO SCH (18:54)
--- NOTE | 2018-08-07 21:03 | IPN ---
DATE: 08/07/2018 SUBJECTIVE: Patient was seen and examined at the bedside today morning. She is afebrile, hemodynamically stable. She still reports pain in the left leg. She is not walking around. She still has an indwelling Desai catheter. Renal function continues to improve. Creatinine is trending down. OBJECTIVE: VITAL SIGNS: Temperature is 97.7 degrees Fahrenheit, blood pressure 155/85, pulse is 60, respiratory rate of 16, saturating 99% on room air. INTAKE AND OUTPUT: Urine output recorded was 1.9 liters yesterday, 1100 miles so far today since overnight. Weight in the bed scale was 113.5 kg yesterday. PHYSICAL EXAMINATION: GENERAL: Patient is awake, alert, oriented times three, laying in bed, morbidly obese, no apparent distress. HEAD AND NECK EXAM: Extraocular muscles intact. Pupils equally round and reactive to light. Mucous membranes are moist. Neck is supple. There is no jugular venous distention (JVD). CARDIOVASCULAR: S1, S2. Regular rate. 2+ edema of the bilateral lower extremities. RESPIRATORY: Chest is clear to auscultation bilaterally. Bilateral equal air entry. No rales or rhonchi. ABDOMEN: Soft. Positive bowel sounds. Nontender. No organomegaly. GENITOURINARY: She has an indwelling Desai catheter. MUSCULOSKELETAL: Left leg has a dressing. She is morbidly obese bilateral lower extremities and 2+ edema. CENTRAL NERVOUS SYSTEM (MAIN ENTREE COOK AND CASHIER): No focal deficit. Power is 5/5 in bilateral upper extremities. LABORATORY REVIEW: Complete blood count (CBC) showed a WBC 5.6, hemoglobin 10.9, platelets of 288. Basic metabolic panel (BMP) showed sodium 141, potassium 3.7, chloride 108, bicarbonate 26, BUN 32, creatinine is 1.3, calcium 8.6, albumin is 2.1. CURRENT INPATIENT MEDICATIONS: Patient 's medications were all reviewed by me. There is no change in the medications today as compared with yesterday. ASSESSMENT AND PLAN: 1. Acute kidney injury. Patient's renal function continues to improve. She is making more than 2 liters of urine a day. creatinine is down to 1.3. Electrolytes are within the normal range. 2. Hypokalemia. Potassium has improved to 3.7. She was given oral potassium. 3. Left leg ulcer. Patient continues to be on IV vancomycin. Dose adjustment is as per pharmacology 4. Urinary retention. Patient got Desai catheter placed two days ago. It will be removed after 48 hours, then patient will be encouraged to void after moving out of bed. DISPOSITION: Patient's renal function is significantly better. Electrolytes are within the normal range. Nephrology service is going to sign off at this moment. Please call nephrology service for any help in the management of this patient during this hospitalization.
[2018-08-07 22:00] VITALS: BP 150/87
[2018-08-08] MEDS: SODIUM CHLORIDE 0.9% INJ 10 ML SYR IV SCH ×2 (05:24→17:43)
[2018-08-08 06:00] VITALS: BP 154/88
[2018-08-08] MEDS: SUCRALFATE SUSP 1GM/10ML UD PO SCH ×4 (08:06→21:03)
[2018-08-08] MEDS: OMEPRAZOLE 20 MG CAP PO SCH (08:07)
[2018-08-08] MEDS: SILVER SULFADIAZINE 1% CR 400 GM JAR TOP SCH (08:07)
[2018-08-08] MEDS: ENOXAPARIN 30 MG/0.3 ML SYR (J1650) SC SCH (08:07)
[2018-08-08 08:13] LABS: HEMATOCRIT 31.1 % (36.0-47.0); MEAN CORPUSCULAR HGB CONC 32.2 g/dl (32.0-36.5); MEAN CORPUSCULAR VOLUME 84.1 fl (80.0-96.0); PLATELET COUNT, AUTOMATED 251 10^3/uL (150-450); WHITE BLOOD COUNT 6.1 10^3/uL (4.0-10.0)
[2018-08-08 08:38] LABS: CALCIUM LEVEL 8.6 MG/DL (8.5-10.1); CREATININE FOR GFR 1.32 MG/DL (0.55-1.30); GLOMERULAR FILTRATION RATE 44.6 (>51); POTASSIUM SERUM 2.9 MEQ/L (3.5-5.1); VANCOMYCIN LEVEL TROUGH 12.2 UG/ML (10.0-20.0)
[2018-08-08] MEDS: VANCOMYCIN HCL 750 MG, VIAL MATE ADAPTER 1 EACH in D5W 250 ML IV SCH (09:12)
[2018-08-08] MEDS ORDERED: POTASSIUM CHLORIDE 10 MEQ SR TABLET PO ONE ×2 (10:45→12:45)
[2018-08-08] MEDS: oxyCODONE 5MG TAB PO SCH ×2 (11:11→17:44)
--- NOTE | 2018-08-08 11:18 | PHACANCOPD ---
PHARMACY VANCOMYCIN DOSING Pt Demographics Demographics Patient Age:52 , Weight:113.500 , Gender: female Adjusted Body Weight Date: 08/01/18, Adjusted Body Weight: [80.42] Kg Events Past 24 Hours Events Past 24 Hours: YES: Change in CrCl; NO: Dialysis, Diuretic Therapy, Fever, Elevation in WBC, Pending Diagnostics, Pending Procedures, Other Vancomycin Vancomycin indication: CELLULITIS,L.LEG VENOUS STASIS ULCERS Vancomycin Target Ranges: 15-20 mcg/ml Vancomycin Load Y/N: No Load Dose Date Time Vancomycin Load Dose: Date: Time: Vancomycin Dose Date: 08/08/18. Current Vancomycin Dose: [750mg iv q18h] Date: 08/06/18. Current Vancomycin Dose: [750mg IV q24h] Date: 08/01/18. Current Vancomycin Dose: [1GM Q18H] Intermittent Dosing?: No Labs Labs Item Value Date Time Creatinine 1.58 MG/DL H 08/06/18 0732 Creatinine 1.30 MG/DL 08/07/18 0555 Creatinine 1.32 MG/DL H 08/08/18 0758 Vancomycin Level Trough 17.3 UG/ML 08/04/18 0745 Vancomycin Level Trough 14.7 UG/ML 08/06/18 0732 Vancomycin Level Trough 12.2 UG/ML 08/08/18 0758 Micro Microbiology 08/01/18 Gram Stain - Final, Complete 08/01/18 Wound Culture - Final, Complete Staph.aureus Methicillin Resis Morganella Morganii Ssp Miguel Myroides Species Creatinine Clearance Date:08/01/18. Creatinine Clearance: [44.62]CALCULATED. Assessment and Plan Maintaining Current Dose?: No Reason for dose change: Trough too low Pharmacist Note Pharmacist Note Date: 08/08/18. Current Vancomycin Dose: [Today is day #9 of vancomycin therapy. Her trough this am was 12.2mcg/ml. Her Serum creatinine has steadily improved with current renal function estimated at 48ml/min. Dosing will be changed to 750mg IV every 18 hours starting 08/09/18 @ 03:00. We will continue to monitor and adjust the dose as needed.] 08/06: Today is day#7 of treatment with Vancomycin and Zosyn for venous stasis ulcers. Her trough resulted at 14.7 which is within target range. Her STACY is improving with her Scr 1.58 today. Her WBC is within normal limits and she is afebrile. We will continue to monitor and make adjustments as necessary. Date: 08/03/18. Pharmacist note:Vancomycin random drawn this morning reported as 16.8, SCR=3.11, CRCL=26.4 (calculated) Will adjust current Vanco dose to 750mg IV Q24H to begin@0900 this morning. Will draw a trough prior to tomorrow's 0900 dose.-will continue to follow )Date: 08/01/18. Pharmacist note:[id number] Transferred from area facility w/ cellulitis/L-leg venous stasis ulcers Received a dose of Pip/Tazo 3.375 gram and Cipro 400mg prior to transfer. SCR=1.83, Calculqated CRCL= 44.6 [facility] tx includes Pip/Tazo and Pharmacy dosed Vancomycin. Vancomycin 1 gram administered in ED @0115, then will continue with a regimen of 1 gram IV Q18H. First trough will be drawn 08/02@0800( prior to the 3rd dose)- will continue to monitor labs and make adjustments as necessary. MEGAN [facility]ER [facility] Aug 08, 2018 11:18
[2018-08-08 14:00] VITALS: BP 128/88
[2018-08-08] MEDS: oxyCODONE 5MG TAB PO PRN (14:02)
[2018-08-08 14:16] LABS: ALBUMIN 2.36 GM/DL (3.29-5.55); ALBUMIN % 41.4 % (55.8-66.1); ALPHA-1-GLOBULIN % 10.5 % (2.9-4.9); BETA-1-GLOBULINS 0.42 GM/DL (0.28-0.60); BETA-1-GLOBULINS % 7.3 % (4.7-7.2); BETA-2-GLOBULINS 0.62 GM/DL (0.19-0.55); BETA-2-GLOBULINS % 10.8 % (3.2-6.5); GAMMA GLOBULINS 0.91 GM/DL (0.65-1.58)
--- NOTE | 2018-08-08 21:35 | IPNPDOC ---
Date Seen The patient was seen on 08/08/18. Progress Note SUBJECTIVE: Patient reports LLE pain but otherwise no other complaints. Renal function improving with downtrending creatinine. Febrile overnight. OBJECTIVE PHYSICAL EXAMINATION: VITAL SIGNS: Please see below. General: No acute distress, Alert Eyes: Normal sclera, EOMI, SKIP HENT: Atraumatic, neck supple, moist mucous membranes Cardiovascular: Normal rate, normal rhythm. 2+ pitting edema b/l. Pulmonary: Clear to auscultation b/l, no wheezing GI: Soft, nontender, nondistended Skin: Warm and dry. Chronic venous stasis changes with tenderness to left leg with multiple skin ulcers Neuro: CN grossly intact. No focal deficits. Strengths equal b/l. Psych: oriented x 3 LABORATORY DATA, IMAGING STUDIES, MICROBIOLOGY: Please see below. ASSESSMENT AND PLAN: 1. LLE infected venous ulcer - c/w IV abx. Dopplers negative for DVT at [place]. - Surgery consulted for debridement and wound management. - Vas surgery confirm venous insufficiency - Wound culture + MRSA. c/w vancomycin for now. 2. STACY on CKD w/ metabolic acidosis - kidney functions overall improved. - s/p bicarb drip. - nephrology had followed. 3. New onset DM - Accuchecks, BS had been stable since insulin drip. - Obtain HbA1c. - Add insulin coverage if needed. VS, I&O, 24H, Fishbone Vital Signs/I&O Vital Signs Date Time Temp Pulse Resp B/P (MAP) Pulse Ox O2 Delivery O2 Flow Rate FiO2 08/08/18 18:14 16 08/08/18 14:00 98.1 79 128/88 (101) 98 08/08/18 09:00 2.0 08/08/18 09:00 Room Air 08/03/18 08:16 95 I&O- Last 24 Hours up to 6 AM 08/08/18 06:00 Intake Total 0 ml Output Total 1584 ml Balance -1584 ml Laboratory Data 24H LABS Laboratory Tests 2 08/08/18 07:57: Bedside Glucose (Misc Panel) 101 08/08/18 07:58: Nucleated Red Blood Cells % (auto) 0.0, Anion Gap 8, Glomerular Filtration Rate 44.6L, Blood Urea Nitrogen 26H, Creatinine 1.32H, Sodium Level 142, Potassium Level 2.9#*L, Chloride Level 109H, Carbon Dioxide Level 25, Calcium Level 8.6, Vancomycin Level Trough 12.2 08/08/18 11:30: Bedside Glucose (Misc Panel) 115H 08/08/18 16:28: Bedside Glucose (Misc Panel) 136H 08/08/18 20:06: Bedside Glucose (Misc Panel) 134H CBC/BMP Laboratory Tests 08/08/18 07:58 Red Blood Count 3.70 L, Mean Corpuscular Volume 84.1, Mean Corpuscular Hemoglobin 27.0, Mean Corpuscular Hemoglobin Concent 32.2, Red Cell Distribution Width 15.2 H, Calcium Level 8.6 Microbiology Microbiology 08/01/18 Gram Stain - Final, Complete 08/01/18 Wound Culture - Final, Complete Staph.aureus Methicillin Resis Morganella Morganii Ssp Miguel Myroides Species KAYLEY DELGADILLO MD Aug 08, 2018 21:35
[2018-08-08 22:00] VITALS: BP 158/76
[2018-08-09] MEDS ORDERED: VANCOMYCIN HCL 750 MG, VIAL MATE ADAPTER 1 EACH in D5W 250 ML IV SCH (03:00)
[2018-08-09] MEDS: oxyCODONE 5MG TAB PO SCH ×2 (04:39→17:14)
[2018-08-09 06:00] VITALS: BP 142/76
[2018-08-09 06:49] LABS: HEMOGLOBIN 9.5 g/dl (12.0-15.5); MEAN CORPUSCULAR HGB CONC 31.7 g/dl (32.0-36.5); MEAN CORPUSCULAR VOLUME 82.2 fl (80.0-96.0); PLATELET COUNT, AUTOMATED 255 10^3/uL (150-450); RED BLOOD COUNT 3.65 10^6/uL (4.00-5.40)
[2018-08-09] MEDS: SODIUM CHLORIDE 0.9% INJ 10 ML SYR IV SCH ×2 (06:56→17:13)
[2018-08-09 07:06] LABS: CALCIUM LEVEL 8.1 MG/DL (8.5-10.1); CREATININE FOR GFR 1.31 MG/DL (0.55-1.30)
[2018-08-09] MEDS: ENOXAPARIN 30 MG/0.3 ML SYR (J1650) SC SCH (07:52)
[2018-08-09] MEDS: OMEPRAZOLE 20 MG CAP PO SCH (07:52)
[2018-08-09] MEDS: SUCRALFATE SUSP 1GM/10ML UD PO SCH ×4 (07:52→21:39)
[2018-08-09] MEDS ORDERED: POTASSIUM CHLORIDE 10 MEQ SR TABLET PO ONE ×2 (09:30→11:30)
[2018-08-09] MEDS: oxyCODONE 5MG TAB PO PRN (09:47)
[2018-08-09 14:00] VITALS: BP 130/75
--- NOTE | 2018-08-09 20:01 | IPNPDOC ---
Date Seen The patient was seen on 08/09/18. Progress Note SUBJECTIVE: Patient denies any complaints today. LE pain if leg is moved but otherwise comfortable. OBJECTIVE PHYSICAL EXAMINATION: VITAL SIGNS: Please see below. General: No acute distress, Alert Eyes: Normal sclera, EOMI, SKIP HENT: Atraumatic, neck supple, moist mucous membranes Cardiovascular: Normal rate, normal rhythm. 2+ pitting edema b/l. Pulmonary: Clear to auscultation b/l, no wheezing GI: Soft, nontender, nondistended Skin: Warm and dry. Chronic venous stasis changes with tenderness to left leg with multiple skin ulcers Neuro: CN grossly intact. No focal deficits. Strengths equal b/l. Psych: oriented x 3 LABORATORY DATA, IMAGING STUDIES, MICROBIOLOGY: Please see below. ASSESSMENT AND PLAN: 1. LLE infected venous ulcer - c/w IV abx. Dopplers negative for DVT at [place]. - Surgery consulted for debridement and wound management. - Vasc surgery confirm venous insufficiency - Wound culture + MRSA. c/w vancomycin for now. 2. STACY on CKD w/ metabolic acidosis - kidney functions overall improved. - s/p bicarb drip. - nephrology had followed. 3. New onset DM - Accuchecks, BS had been stable since insulin drip. - Obtain HbA1c. - Add insulin coverage if needed. Will be difficult discharge planning given patient does not have insurance, lives alone and unable to ambulate. Will need some type of home care at least. Abx will also be difficult due to insurance barriers. VS, I&O, 24H, Fishbone Vital Signs/I&O Vital Signs Date Time Temp Pulse Resp B/P (MAP) Pulse Ox O2 Delivery O2 Flow Rate FiO2 08/09/18 17:44 18 08/09/18 14:00 99.0 67 130/75 (93) 100 08/09/18 09:13 Nasal Cannula 2.0 08/03/18 08:16 95 I&O- Last 24 Hours up to 6 AM 08/09/18 06:00 Intake Total 2070 ml Output Total 1160 ml Balance 910 ml Laboratory Data 24H LABS Laboratory Tests 2 08/08/18 20:06: Bedside Glucose (Misc Panel) 134H 08/09/18 06:02: Nucleated Red Blood Cells % (auto) 0.0, Anion Gap 8, Glomerular Filtration Rate 45.0L, Blood Urea Nitrogen 26H, Creatinine 1.31H, Sodium Level 140, Potassium Level 3.0L, Chloride Level 109H, Carbon Dioxide Level 23, Calcium Level 8.1L 08/09/18 11:27: Bedside Glucose (Misc Panel) 120H 08/09/18 16:39: Bedside Glucose (Misc Panel) 143H CBC/BMP Laboratory Tests 08/09/18 06:02 Red Blood Count 3.65 L, Mean Corpuscular Volume 82.2, Mean Corpuscular Hemoglobin 26.0 L, Mean Corpuscular Hemoglobin Concent 31.7 L, Red Cell Distribution Width 15.0 H, Calcium Level 8.1 L Microbiology Microbiology 08/01/18 Gram Stain - Final, Complete 08/01/18 Wound Culture - Final, Complete Staph.aureus Methicillin Resis Morganella Morganii Ssp Miguel Myroides Species KAYLEY DELGADILLO MD Aug 09, 2018 20:01
[2018-08-09] MEDS: VANCOMYCIN HCL 750 MG, VIAL MATE ADAPTER 1 EACH in D5W 250 ML IV SCH (21:40)
[2018-08-09 22:00] VITALS: BP 175/81
[2018-08-09] MEDS: SODIUM CHLORIDE 0.9% INJ 10 ML SYR IV PRN (23:09)
[2018-08-10] MEDS: oxyCODONE 5MG TAB PO SCH ×2 (04:06→18:05)
[2018-08-10] MEDS: SODIUM CHLORIDE 0.9% INJ 10 ML SYR IV SCH ×2 (05:37→18:04)
[2018-08-10 06:00] VITALS: BP 161/74
[2018-08-10 06:52] LABS: HEMATOCRIT 29.1 % (36.0-47.0); HEMOGLOBIN 9.4 g/dl (12.0-15.5); MEAN CORPUSCULAR HEMOGLOBIN 26.3 pg (27.0-33.0); MEAN CORPUSCULAR HGB CONC 32.3 g/dl (32.0-36.5); MEAN CORPUSCULAR VOLUME 81.5 fl (80.0-96.0); PLATELET COUNT, AUTOMATED 241 10^3/uL (150-450); RED BLOOD COUNT 3.57 10^6/uL (4.00-5.40); WHITE BLOOD COUNT 7.2 10^3/uL (4.0-10.0)
[2018-08-10] MEDS: OMEPRAZOLE 20 MG CAP PO SCH (07:57)
[2018-08-10] MEDS: ENOXAPARIN 30 MG/0.3 ML SYR (J1650) SC SCH (07:57)
[2018-08-10] MEDS: SUCRALFATE SUSP 1GM/10ML UD PO SCH ×4 (07:57→20:48)
[2018-08-10 08:54] LABS: CALCIUM LEVEL 8.4 MG/DL (8.5-10.1); CREATININE FOR GFR 1.5 MG/DL (0.55-1.30); GLOMERULAR FILTRATION RATE 38.5 (>51); POTASSIUM SERUM 3.3 MEQ/L (3.5-5.1)
[2018-08-10 14:00] VITALS: BP 140/73
[2018-08-10] MEDS: VANCOMYCIN HCL 750 MG, VIAL MATE ADAPTER 1 EACH in D5W 250 ML IV SCH (14:36)
--- NOTE | 2018-08-10 15:33 | IPNPDOC ---
Date Seen The patient was seen on 08/10/18. Progress Note SUBJECTIVE: Patient denies any complaints. LE not hurting unless bandage is changed. Afebrile overnight. OBJECTIVE PHYSICAL EXAMINATION: VITAL SIGNS: Please see below. General: No acute distress, Alert Eyes: Normal sclera, EOMI, SKIP HENT: Atraumatic, neck supple, moist mucous membranes Cardiovascular: Normal rate, normal rhythm. 2+ pitting edema b/l. Pulmonary: Clear to auscultation b/l, no wheezing GI: Soft, nontender, nondistended Skin: Warm and dry. Chronic venous stasis changes with tenderness to left leg with multiple skin ulcers. Bandage clean and dry. Neuro: CN grossly intact. No focal deficits. Strengths equal b/l. Psych: oriented x 3 LABORATORY DATA, IMAGING STUDIES, MICROBIOLOGY: Please see below. ASSESSMENT AND PLAN: 1. LLE infected venous ulcer - c/w IV abx. Dopplers negative for DVT at [place]. - Surgery consulted for debridement and wound management. - Vasc surgery confirm venous insufficiency - Wound culture + MRSA. c/w vancomycin for now. 2. STACY on CKD w/ metabolic acidosis - kidney functions overall improved. - s/p bicarb drip. - nephrology had followed. 3. New onset DM? - Was hyperglycemic on presentation but BS had been well controlled since. - Accuchecks. Obtain HbA1c. - Add insulin coverage if needed. Will be difficult discharge planning given patient does not have insurance, lives alone and unable to ambulate. Will need some type of home care at least. Abx will also be difficult due to insurance barriers. VS, I&O, 24H, Fishbone Vital Signs/I&O Vital Signs Date Time Temp Pulse Resp B/P (MAP) Pulse Ox O2 Delivery O2 Flow Rate FiO2 08/10/18 14:00 98.4 60 18 140/73 (95) 99 08/10/18 08:42 2.0 08/10/18 03:33 Room Air I&O- Last 24 Hours up to 6 AM 08/10/18 06:00 Intake Total 1786 ml Output Total 825 ml Balance 961 ml Laboratory Data 24H LABS Laboratory Tests 2 08/09/18 16:39: Bedside Glucose (Misc Panel) 143H 08/09/18 20:26: Bedside Glucose (Misc Panel) 119H 08/10/18 06:30: Nucleated Red Blood Cells % (auto) 0.0, Anion Gap 8, Glomerular Filtration Rate 38.5L, Blood Urea Nitrogen 26H, Creatinine 1.50H, Sodium Level 140, Potassium Level 3.3L, Chloride Level 110H, Carbon Dioxide Level 22, Calcium Level 8.4L 08/10/18 12:01: Bedside Glucose (Misc Panel) 112H 08/10/18 14:03: Vancomycin Level Trough 15.6 CBC/BMP Laboratory Tests 08/10/18 06:30 Red Blood Count 3.57 L, Mean Corpuscular Volume 81.5, Mean Corpuscular Hemoglobin 26.3 L, Mean Corpuscular Hemoglobin Concent 32.3, Red Cell Distribution Width 15.1 H, Calcium Level 8.4 L Microbiology Microbiology 08/01/18 Gram Stain - Final, Complete 08/01/18 Wound Culture - Final, Complete Staph.aureus Methicillin Resis Morganella Morganii Ssp Miguel Myroides Species KAYLEY DELGADILLO MD Aug 10, 2018 15:33
[2018-08-10] MEDS ORDERED: POTASSIUM CHLORIDE 10 MEQ SR TABLET PO ONE (16:00)
[2018-08-10 22:00] VITALS: BP 146/69
[2018-08-11] MEDS: oxyCODONE 5MG TAB PO SCH ×2 (04:17→17:33)
[2018-08-11] MEDS: SODIUM CHLORIDE 0.9% INJ 10 ML SYR IV SCH ×2 (05:28→17:13)
[2018-08-11 06:19] LABS: HEMATOCRIT 29.9 % (36.0-47.0); HEMOGLOBIN 9.6 g/dl (12.0-15.5); MEAN CORPUSCULAR HEMOGLOBIN 26.7 pg (27.0-33.0); MEAN CORPUSCULAR HGB CONC 32.1 g/dl (32.0-36.5); MEAN CORPUSCULAR VOLUME 83.3 fl (80.0-96.0); PLATELET COUNT, AUTOMATED 231 10^3/uL (150-450); RED BLOOD COUNT 3.59 10^6/uL (4.00-5.40); WHITE BLOOD COUNT 7.2 10^3/uL (4.0-10.0)
[2018-08-11 06:40] LABS: CALCIUM LEVEL 8.3 MG/DL (8.5-10.1); CREATININE FOR GFR 1.66 MG/DL (0.55-1.30); GLOMERULAR FILTRATION RATE 34.3 (>51); POTASSIUM SERUM 3.5 MEQ/L (3.5-5.1)
[2018-08-11 07:08] LABS: HEMOGLOBIN A1c 8.2 %
[2018-08-11] MEDS: SUCRALFATE SUSP 1GM/10ML UD PO SCH ×4 (07:59→20:38)
[2018-08-11] MEDS: OMEPRAZOLE 20 MG CAP PO SCH (08:00)
[2018-08-11] MEDS: ENOXAPARIN 30 MG/0.3 ML SYR (J1650) SC SCH (08:00)
[2018-08-11] MEDS: VANCOMYCIN HCL 750 MG, VIAL MATE ADAPTER 1 EACH in D5W 250 ML IV SCH (08:30)
[2018-08-11] MEDS: cefTRIAXone SOD 1 GM in D5W MINI-BAG PLUS 50 ML IV SCH (10:09)
[2018-08-11 14:00] VITALS: BP 119/75
[2018-08-11] MEDS: oxyCODONE 5MG TAB PO PRN (15:15)
--- NOTE | 2018-08-11 15:51 | IPNPDOC ---
Date Seen The patient was seen on 08/11/18. Progress Note SUBJECTIVE: Patient denies any complaints. Afebrile overnight. Vancomycin discontinued today, completed >10 day course. OBJECTIVE PHYSICAL EXAMINATION: VITAL SIGNS: Please see below. General: No acute distress, Alert Eyes: Normal sclera, EOMI, SKIP HENT: Atraumatic, neck supple, moist mucous membranes Cardiovascular: Normal rate, normal rhythm. 2+ pitting edema b/l. Pulmonary: Clear to auscultation b/l, no wheezing GI: Soft, nontender, nondistended Skin: Warm and dry. Chronic venous stasis changes with tenderness to left leg with multiple skin ulcers. Bandage clean and dry. Neuro: CN grossly intact. No focal deficits. Strengths equal b/l. Psych: oriented x 3 LABORATORY DATA, IMAGING STUDIES, MICROBIOLOGY: Please see below. ASSESSMENT AND PLAN: 1. LLE infected venous ulcer - c/w IV abx. Dopplers negative for DVT at [place]. - Surgery consulted for debridement and wound management. - Vas surgery confirm venous insufficiency - Wound culture + MRSA. s/p 10 day course of vancomycin with improvement. - Also + for Morganella, was on Zosyn for 2 days along with vancomycin on admission. Not sure why it was discontinued. - Started on Rocephin to treat for Morganella. 2. STACY on CKD w/ metabolic acidosis - kidney functions overall improved. - s/p bicarb drip. - nephrology had followed. 3. New onset DM? - Was hyperglycemic on presentation but BS had been well controlled since. - Accuchecks. HbA1c 8.2 but BS has been controlled however. - Would not try to lower BS anymore as she may become hypoglycemic. - Monitor and add insulin coverage if needed. Will be difficult discharge planning given patient does not have insurance, lives alone and unable to ambulate. Rehab may not be an option due to insurance problems. Will try to get patient to ambulate with PT here and hopeful for discharge next week. VS, I&O, 24H, Fishbone Vital Signs/I&O Vital Signs Date Time Temp Pulse Resp B/P (MAP) Pulse Ox O2 Delivery O2 Flow Rate FiO2 08/11/18 15:46 18 08/11/18 14:00 98.4 73 119/75 (90) 98 08/11/18 09:10 Room Air 08/10/18 21:00 2.0 I&O- Last 24 Hours up to 6 AM 08/11/18 06:00 Intake Total 1675 ml Output Total 600 ml Balance 1075 ml Laboratory Data 24H LABS Laboratory Tests 2 08/10/18 16:31: Bedside Glucose (Misc Panel) 113H 08/10/18 20:52: Bedside Glucose (Misc Panel) 144H 08/11/18 05:36: Nucleated Red Blood Cells % (auto) 0.0, Anion Gap 8, Glomerular Filtration Rate 34.3L, Estimated Mean Plasma Glucose 189H, Hemoglobin A1c 8.2, Blood Urea Ni trogen 29H, Creatinine 1.66H, Sodium Level 139, Potassium Level 3.5, Chloride Level 110H, Carbon Dioxide Level 21, Calcium Level 8.3L 08/11/18 11:44: Bedside Glucose (Misc Panel) 102 CBC/BMP Laboratory Tests 08/11/18 05:36 Red Blood Count 3.59 L, Mean Corpuscular Volume 83.3, Mean Corpuscular Hemoglobin 26.7 L, Mean Corpuscular Hemoglobin Concent 32.1, Red Cell Distribution Width 15.1 H, Calcium Level 8.3 L Microbiology Microbiology 08/01/18 Gram Stain - Final, Complete 08/01/18 Wound Culture - Final, Complete Staph.aureus Methicillin Resis Morganella Morganii [facility] Myroides Species KAYLEY DELGADILLO MD Aug 11, 2018 15:51
[2018-08-11 22:00] VITALS: BP 172/70
[2018-08-12] MEDS: oxyCODONE 5MG TAB PO SCH ×2 (03:47→17:54)
[2018-08-12 06:00] VITALS: BP 138/66
[2018-08-12] MEDS: SODIUM CHLORIDE 0.9% INJ 10 ML SYR IV SCH ×2 (06:10→17:55)
[2018-08-12] MEDS: ENOXAPARIN 30 MG/0.3 ML SYR (J1650) SC SCH (09:10)
[2018-08-12] MEDS: cefTRIAXone SOD 1 GM in D5W MINI-BAG PLUS 50 ML IV SCH (09:10)
[2018-08-12] MEDS: OMEPRAZOLE 20 MG CAP PO SCH (09:10)
[2018-08-12] MEDS: SUCRALFATE SUSP 1GM/10ML UD PO SCH ×4 (09:10→21:03)
--- NOTE | 2018-08-12 12:11 | IPNPDOC ---
Date Seen The patient was seen on 08/12/18. Progress Note SUBJECTIVE: Patient denies any complaints. Afebrile overnight. Reported that it is slightly less painful with dressing changes and that it continues to look better. OBJECTIVE PHYSICAL EXAMINATION: VITAL SIGNS: Please see below. General: No acute distress, Alert Eyes: Normal sclera, EOMI, SKIP HENT: Atraumatic, neck supple, moist mucous membranes Cardiovascular: Normal rate, normal rhythm. Pulmonary: Clear to auscultation b/l, no wheezing GI: Soft, nontender, nondistended Skin: Warm and dry. Chronic venous stasis changes with tenderness to left leg with multiple skin ulcers. Bandage clean and dry. Neuro: CN grossly intact. No focal deficits. Strengths equal b/l. Psych: oriented x 3 LABORATORY DATA, IMAGING STUDIES, MICROBIOLOGY: Please see below. ASSESSMENT AND PLAN: 1. LLE infected venous ulcer - c/w IV abx. Dopplers negative for DVT at [place]. - Surgery consulted for debridement and wound management. - Vas surgery confirm venous insufficiency - Wound culture + MRSA. s/p 10 day course of vancomycin with improvement. - Also + for Morganella, was on Zosyn for 2 days along with vancomycin on admission. Not sure why it was discontinued. - Started on Rocephin to finish treatment for Morganella. 2. STACY on CKD w/ metabolic acidosis - kidney functions overall improved. - s/p bicarb drip. - nephrology had followed. 3. New onset DM? - Was hyperglycemic on presentation but BS had been well controlled since. - Accuchecks. HbA1c 8.2 but BS has been controlled however. - Would not try to lower BS anymore as she may become hypoglycemic. - Monitor and add insulin coverage if needed. Will be difficult discharge planning given patient does not have insurance, lives alone and unable to ambulate. Rehab may not be an option due to insurance problems. Will try to get patient to ambulate with PT here and hopeful for discharge next week. VS, I&O, 24H, Fishbone Vital Signs/I&O Vital Signs Date Time Temp Pulse Resp B/P (MAP) Pulse Ox O2 Delivery O2 Flow Rate FiO2 08/12/18 06:00 99.1 56 18 138/66 (90) 94 08/12/18 04:55 Room Air 08/10/18 21:00 2.0 I&O- Last 24 Hours up to 6 AM 08/12/18 05:59 Intake Total 1045 ml Output Total 525 ml Balance 520 ml Laboratory Data 24H LABS Laboratory Tests 2 08/11/18 16:31: Bedside Glucose (Misc Panel) 96 08/12/18 02:22: Bedside Glucose (Misc Panel) 103 08/12/18 07:04: Bedside Glucose (Misc Panel) 87 08/12/18 11:53: Bedside Glucose (Misc Panel) 98 KAYLEY DELGADILLO MD Aug 12, 2018 12:11
[2018-08-12 14:00] VITALS: BP 148/65
[2018-08-12 22:00] VITALS: BP 126/86
[2018-08-13] MEDS: oxyCODONE 5MG TAB PO PRN (02:45)
[2018-08-13] MEDS: oxyCODONE 5MG TAB PO SCH ×2 (02:46→17:18)
[2018-08-13 06:00] VITALS: BP 138/88
[2018-08-13] MEDS: SODIUM CHLORIDE 0.9% INJ 10 ML SYR IV SCH ×2 (06:26→17:19)
[2018-08-13 06:38] LABS: HEMATOCRIT 28.6 % (36.0-47.0); MEAN CORPUSCULAR HEMOGLOBIN 25.7 pg (27.0-33.0); MEAN CORPUSCULAR HGB CONC 31.5 g/dl (32.0-36.5); MEAN CORPUSCULAR VOLUME 81.7 fl (80.0-96.0); PLATELET COUNT, AUTOMATED 245 10^3/uL (150-450); WHITE BLOOD COUNT 5.5 10^3/uL (4.0-10.0)
[2018-08-13 07:09] LABS: CREATININE FOR GFR 1.51 MG/DL (0.55-1.30); GLOMERULAR FILTRATION RATE 38.2 (>51)
[2018-08-13] MEDS: SUCRALFATE SUSP 1GM/10ML UD PO SCH ×4 (08:35→21:03)
[2018-08-13] MEDS: POTASSIUM CHLORIDE 10 MEQ SR TABLET PO SCH ×2 (08:35→21:04)
[2018-08-13] MEDS: OMEPRAZOLE 20 MG CAP PO SCH (08:35)
[2018-08-13] MEDS: ENOXAPARIN 30 MG/0.3 ML SYR (J1650) SC SCH (08:35)
[2018-08-13] MEDS: cefTRIAXone SOD 1 GM in D5W MINI-BAG PLUS 50 ML IV SCH (09:51)
--- NOTE | 2018-08-13 13:35 | IPNPDOC ---
Date Seen The patient was seen on 08/13/18. Progress Note SUBJECTIVE: Patient reported no complaints and said she feels fine. Afebrile. Continue with PT. OBJECTIVE PHYSICAL EXAMINATION: VITAL SIGNS: Please see below. General: No acute distress, Alert Eyes: Normal sclera, EOMI, SKIP HENT: Atraumatic, neck supple, moist mucous membranes Cardiovascular: Normal rate, normal rhythm. Pulmonary: Clear to auscultation b/l, no wheezing GI: Soft, nontender, nondistended Skin: Warm and dry. Chronic venous stasis changes with tenderness to left leg with multiple skin ulcers. Bandage clean and dry. Neuro: CN grossly intact. No focal deficits. Strengths equal b/l. Psych: oriented x 3 LABORATORY DATA, IMAGING STUDIES, MICROBIOLOGY: Please see below. ASSESSMENT AND PLAN: 1. LLE infected venous ulcer - c/w IV abx. Dopplers negative for DVT at [place]. - Surgery consulted for debridement and wound management. - Vasc surgery confirm venous insufficiency - Wound culture + MRSA. s/p 10 day course of vancomycin with improvement. - Also + for Morganella, was on Zosyn for 2 days along with vancomycin on admission. Not sure why it was discontinued. - Started on Rocephin to finish treatment for Morganella. 2. STACY on CKD w/ metabolic acidosis - kidney functions overall improved. - s/p bicarb drip. - nephrology had followed. 3. New onset DM? - Was hyperglycemic on presentation but BS had been well controlled since. - Accuchecks. HbA1c 8.2 but BS has been controlled however. - Would not try to lower BS anymore as she may become hypoglycemic. - Monitor and add insulin coverage if needed. Will be difficult discharge planning given patient does not have insurance, lives alone and unable to ambulate. Rehab may not be an option due to insurance problems. Will try to get patient to ambulate with PT here and hopeful for discharge soon. VS, I&O, 24H, Fishbone Vital Signs/I&O Vital Signs Date Time Temp Pulse Resp B/P (MAP) Pulse Ox O2 Delivery O2 Flow Rate FiO2 08/13/18 06:00 96.2 51 22 138/88 (105) 97 08/12/18 04:55 Room Air 08/10/18 21:00 2.0 I&O- Last 24 Hours up to 6 AM 08/13/18 05:59 Intake Total 1410 ml Output Total 1230 ml Balance 180 ml Laboratory Data 24H LABS Laboratory Tests 2 08/12/18 20:22: Bedside Glucose (Misc Panel) 100 08/13/18 05:47: Nucleated Red Blood Cells % (auto) 0.0, Anion Gap 9, Glomerular Filtration Rate 38.2L, Blood Urea Nitrogen 30H, Creatinine 1.51H, Sodium Level 140, Potassium Level 3.0L, Chloride Level 110H, Carbon Dioxide Level 21, Calcium Level 8.0L 08/13/18 11:18: Bedside Glucose (Misc Panel) 107H CBC/BMP Laboratory Tests 08/13/18 05:47 Red Blood Count 3.50 L, Mean Corpuscular Volume 81.7, Mean Corpuscular Hemoglobin 25.7 L, Mean Corpuscular Hemoglobin Concent 31.5 L, Red Cell Distribution Width 15.0 H, Calcium Level 8.0 L KAYLEY DELGADILLO MD Aug 13, 2018 13:35
[2018-08-13 14:00] VITALS: BP 138/68
[2018-08-13 22:00] VITALS: BP 138/70
[2018-08-14] MEDS: oxyCODONE 5MG TAB PO SCH ×2 (04:37→18:30)
[2018-08-14] MEDS: SODIUM CHLORIDE 0.9% INJ 10 ML SYR IV SCH ×2 (05:59→18:00)
[2018-08-14 06:00] VITALS: BP 146/73
[2018-08-14] MEDS: SODIUM CHLORIDE 0.9% INJ 10 ML SYR IV PRN (06:00)
[2018-08-14] MEDS: SUCRALFATE SUSP 1GM/10ML UD PO SCH ×4 (07:56→21:21)
[2018-08-14] MEDS: ENOXAPARIN 30 MG/0.3 ML SYR (J1650) SC SCH (07:56)
[2018-08-14] MEDS: OMEPRAZOLE 20 MG CAP PO SCH (07:56)
[2018-08-14] MEDS: cefTRIAXone SOD 1 GM in D5W MINI-BAG PLUS 50 ML IV SCH (09:37)
--- NOTE | 2018-08-14 10:51 | IPNPDOC ---
Date Seen The patient was seen on 08/14/18. Progress Note SUBJECTIVE: Patient reported no complaints and said she feels fine. Afebrile. Continue with PT. OBJECTIVE PHYSICAL EXAMINATION: VITAL SIGNS: Please see below. General: No acute distress, Alert Eyes: Normal sclera, EOMI, SKIP HENT: Atraumatic, neck supple, moist mucous membranes Cardiovascular: Normal rate, normal rhythm. Pulmonary: Clear to auscultation b/l, no wheezing GI: Soft, nontender, nondistended Skin: Warm and dry. Chronic venous stasis changes with tenderness to left leg with multiple skin ulcers. Bandage clean and dry. Neuro: CN grossly intact. No focal deficits. Strengths equal b/l. Psych: oriented x 3 LABORATORY DATA, IMAGING STUDIES, MICROBIOLOGY: Please see below. ASSESSMENT AND PLAN: 1. LLE infected venous ulcer - c/w IV abx. Dopplers negative for DVT at [place]. - Surgery consulted for debridement and wound management. - Vasc surgery confirm venous insufficiency - Wound culture + MRSA. s/p 10 day course of vancomycin with improvement. - Also + for Morganella, was on Zosyn for 2 days along with vancomycin on admission. Not sure why it was discontinued. - Started on Rocephin to finish treatment for Morganella. 2. STACY on CKD w/ metabolic acidosis - kidney functions overall improved. - s/p bicarb drip. - nephrology had followed. 3. New onset DM? - Was hyperglycemic on presentation but BS had been well controlled since. - Accuchecks. HbA1c 8.2 but BS has been controlled however. - Would not try to lower BS anymore as she may become hypoglycemic. - Monitor and add insulin coverage if needed. Will be difficult discharge planning given patient does not have insurance, lives alone and unable to ambulate. Rehab may not be an option due to insurance problems. Will try to get patient to ambulate with PT here and hopeful for discharge soon. VS, I&O, 24H, Fishbone Vital Signs/I&O Vital Signs Date Time Temp Pulse Resp B/P (MAP) Pulse Ox O2 Delivery O2 Flow Rate FiO2 08/14/18 06:00 97.2 56 17 146/73 (97) 98 08/12/18 04:55 Room Air 08/10/18 21:00 2.0 I&O- Last 24 Hours up to 6 AM 08/14/18 06:00 Intake Total 650 ml Output Total 975 ml Balance -325 ml Laboratory Data 24H LABS Laboratory Tests 2 08/13/18 11:18: Bedside Glucose (Misc Panel) 107H 08/13/18 16:39: Bedside Glucose (Misc Panel) 106H 08/13/18 20:32: Bedside Glucose (Misc Panel) 93 08/14/18 06:57: Bedside Glucose (Misc Panel) 87 KAYLEY DELGADILLO MD Aug 14, 2018 10:51
[2018-08-14 14:00] VITALS: BP 170/80
[2018-08-14] MEDS: oxyCODONE 5MG TAB PO PRN ×2 (16:36→21:23)
[2018-08-14 22:00] VITALS: BP 122/78
--- NOTE | 2018-08-14 22:24 | IPN ---
DATE OF VISIT: 08/04/2018 SUBJECTIVE: Alberta is seen and examined this morning at the bedside in the intensive care unit. She continues on bicarbonate containing fluids with potassium supplementation. Her metabolic acidosis has resolved and her renal function is improving on a daily basis. She complains of ongoing pain in the left lower extremity otherwise she denies any complaints. PHYSICAL EXAMINATION: Vital signs: Temperature 98.0, pulse 67, respiratory rate 18, blood pressure 104/60, saturating 97% intake yesterday was 4.2 liters, urine output was 2.7 liters, net positive 1.5 liters. General: The patient is seen in the intensive care unit lying in bed in no distress. Appears stated age, obese female. HEENT: Extraocular muscles are intact, tongue is moist. Neck: Supple. Jugular veins are not elevated. Cardiac: S1,S2, regular rate and rhythm. Lungs: Clear to auscultation bilaterally. No crackles, rales or rhonchus. Abdomen: Soft and obese. There is no tenderness to palpation. Extremities: The right lower extremity is negative for edema. The left lower extremity has dressings on her wounds. Neurologic: She is oriented times three. No focal deficit. Psychiatric: Appropriate. LABORATORY DATA: Sodium 132, potassium 3.5, bicarbonate 22, BUN 47, creatinine 2.7. PROBLEMS: 1. Acute kidney injury in this patient whose baseline renal function is unknown as she has not had laboratory studies in a couple of decades Acute kidney injury is likely in the setting of high dose anti-inflammatory drug (NSAID) use. Her renal function has been improving over the course of this admission with IV fluids. It remains to be seen where her creatinine will plateau at. Her kidney ultrasound was reviewed and negative for any obstruction. She is continuing on bicarbonate containing fluids and the rate has been cut down. 2. Normal anion gap metabolic acidosis. Acidemia has improved nicely with IV bicarbonate and the rate of the fluid is being cut down. She is also receiving potassium supplementation as needed. Metabolic acidosis was likely secondary to decremental decrease in glomerular filtration rate (GFR). 3. Left leg ulcer. She continues on vancomycin per the primary team and she is also pending further vascular evaluation.
[2018-08-15] MEDS: oxyCODONE 5MG TAB PO SCH ×2 (04:20→18:52)
[2018-08-15 06:00] VITALS: BP_SYST 122; BP_SYST 126; BP_DIAS 70; BP_DIAS 78
[2018-08-15 06:12] LABS: HEMATOCRIT 28.8 % (36.0-47.0); HEMOGLOBIN 9.1 g/dl (12.0-15.5); MEAN CORPUSCULAR HEMOGLOBIN 26.2 pg (27.0-33.0); MEAN CORPUSCULAR HGB CONC 31.6 g/dl (32.0-36.5); PLATELET COUNT, AUTOMATED 268 10^3/uL (150-450); RED BLOOD COUNT 3.47 10^6/uL (4.00-5.40); WHITE BLOOD COUNT 5.5 10^3/uL (4.0-10.0)
[2018-08-15 06:34] LABS: CREATININE FOR GFR 1.4 MG/DL (0.55-1.30); GLOMERULAR FILTRATION RATE 41.7 (>51); POTASSIUM SERUM 3.4 MEQ/L (3.5-5.1)
[2018-08-15] MEDS: SODIUM CHLORIDE 0.9% INJ 10 ML SYR IV SCH ×2 (06:53→16:34)
[2018-08-15] MEDS: SODIUM CHLORIDE 0.9% INJ 10 ML SYR IV PRN (06:54)
[2018-08-15] MEDS: ENOXAPARIN 30 MG/0.3 ML SYR (J1650) SC SCH (08:40)
[2018-08-15] MEDS: SUCRALFATE SUSP 1GM/10ML UD PO SCH ×4 (08:40→22:16)
[2018-08-15] MEDS: OMEPRAZOLE 20 MG CAP PO SCH (08:41)
[2018-08-15] MEDS: cefTRIAXone SOD 1 GM in D5W MINI-BAG PLUS 50 ML IV SCH (10:01)
[2018-08-15 14:00] VITALS: BP 160/62
[2018-08-15] MEDS ORDERED: POTASSIUM CHLORIDE 10 MEQ SR TABLET PO ONE (16:00)
[2018-08-15 22:00] VITALS: BP 132/78
[2018-08-16] MEDS: oxyCODONE 5MG TAB PO SCH ×2 (05:03→18:40)
[2018-08-16] MEDS: SODIUM CHLORIDE 0.9% INJ 10 ML SYR IV SCH ×2 (05:04→18:41)
[2018-08-16 06:00] VITALS: BP 130/82
[2018-08-16] MEDS: OMEPRAZOLE 20 MG CAP PO SCH (09:42)
[2018-08-16] MEDS: ENOXAPARIN 30 MG/0.3 ML SYR (J1650) SC SCH (09:42)
[2018-08-16] MEDS: SUCRALFATE SUSP 1GM/10ML UD PO SCH ×4 (09:42→20:12)
[2018-08-16] MEDS: cefTRIAXone SOD 1 GM in D5W MINI-BAG PLUS 50 ML IV SCH (09:43)
--- NOTE | 2018-08-16 11:44 | IPNPDOC ---
Date Seen The patient was seen on 08/16/18. Progress Note Vascular Surgery Dr Jennings REASON FOR CONSULTATION: non healing ulcer LLE. HPI: 52 year old female transferred from [facility] for severe LLE venous stasis u lcers. She was admitted for cellulitis, infected venous stasis ulcers and venous stasis dermatitis. Vascular surgery was consulted re non healing ulcers LLE. This AM the pt states her LLE has been doing better, healing slowly, pain improved. Denies any fevers, chills, weakness, fatigue, Headache, Chest Pain, Shortness of breath, cough, palpitations, abdominal pain, N/V/D or changes in bowel or bladder habits. PMHx: Obesity. BMI 40.2 chronic venous insufficiency DM2 diagnosed this admission. CKD vs STACY, noted this admission. SCr 3.11. PSHX: denies PE: GEN: 52yoF, appears stated age. Alert and oriented x 3. HEENT: Normocephalic, atraumatic.Moist mucous membranes. CHEST: Regular rate and rhythm, +S1, +S2 LUNGS: Clear to auscultation bilaterally. No wheezes, rales, or rhonchi. ABD: Round, soft, non-tender, non-distended. SKIN: superficial varicose veins noted. Wound LLE in bandaged. NEURO: Alert and oriented x 3. No focal deficits appreciated. WOUND CULTURE Preliminary Organism 1 STAPH.AUREUS METHICILLIN RESIS QUANTITY OF GROWTH HEAVY DVT scan done in other hospital is negative. BLE arterial US Bilateral lower extremity arterial duplex ultrasound for left lower leg wound and left leg pain: Right lower extremity: Peak Systolic Phasicity Velocity FIRMWARE SOFTWARE VERIFICATION ENGINEER 135 triphasic Profunda 127 triphasic SFA prox 101 triphasic SFA mid 71.1 triphasic SFA dist 84.7 triphasic Pop 34.6 triphasic LYNDA prox 41.7 triphasic Tib/P tr 109 triphasic ASSISTANT CREDIT MANAGER pr 75.2 triphasic ASSISTANT CREDIT MANAGER dst 67.8 triphasic LYNDA dst 52.6 biphasic Left lower extremity: Peak Systolic Phasicity Velocity FIRMWARE SOFTWARE VERIFICATION ENGINEER 154 triphasic Profunda 68 triphasic SFA prox 119 triphasic SFA mid 118 triphasic SFA dist 114 triphasic Pop 158 triphasic LYNDA prox 215 biphasic Tib/P tr 181 triphasic ASSISTANT CREDIT MANAGER pr 127 triphasic ASSISTANT CREDIT MANAGER dst 107 triphasic LYNDA dst 103 triphasic The study is technically difficult because of patient body habitus with difficulty visualizing the vessels. No significant atheromatous plaque or calcifications are identified. Flow velocity throughout the left lower extremity is overall increased, likely a consequence of increased blood flow to the left leg wound. There is mild focal stenosis of the proximal left LYNDA. Electronically Signed by Adriano Mesa MD 08/03/2018 02:14 P Venous US LEs Findings: Ultrasound examination of the right and left lower extremity deep venous structures from the common femoral vein to the popliteal vein demonstrates n ormal compressibility flow and wave patterns in response to respiration and augmentation. There is no evidence for deep venous thrombosis. Evaluation of the right lower extremity demonstrates no evidence for deep or superficial reflux. Evaluation of the left lower extremity demonstrates mild reflux through the greater saphenous vein. Specifically, the proximal saphenous vein measures 9.6 mm diameter with reflux duration 1.8 seconds; the mid greater saphenous vein measures 8.1 mm diameter with reflux duration 1.7 seconds; distal greater saphenous vein measures 11.4 mm diameter with reflux duration 1.6 seconds. Reflux through the lesser saphenous vein measuring 3.8 mm diameter with 0.9 second duration. Impression: No evidence for deep venous thrombosis. Mild reflux through the left saphenous vein. Electronically Signed by Leighton Meade MD 08/04/2018 02:14 P A&P: 1. Non healing LLE wound. BLE arterial US with no significant stenosis noted. No intervention planned as per Dr Jennings. BLE venous US with VVI with no significant reflux. No intervention planned as per Dr Jennings. Would recommend conservative mgmt. Recommend continue with wound care. Continue antibiotics as per Primary team. Pain control as per primary team. 2. DVT prophylaxis. Lovenox. VS, I&O, 24H, Fishbone Vital Signs/I&O Vital Signs Date Time Temp Pulse Resp B/P (MAP) Pulse Ox O2 Delivery O2 Flow Rate FiO2 08/16/18 06:00 97.7 54 21 130/82 (98) 97 08/16/18 01:34 Room Air 08/10/18 21:00 2.0 I&O- Last 24 Hours up to 6 AM 08/16/18 06:00 Intake Total 1770 ml Output Total 0 ml Balance 1770 ml Laboratory Data 24H LABS Laboratory Tests 2 08/15/18 11:45: Bedside Glucose (Misc Panel) 87 08/15/18 16:35: Bedside Glucose (Misc Panel) 102 08/15/18 20:31: Bedside Glucose (Misc Panel) 120H 08/16/18 06:10: Bedside Glucose (Misc Panel) 94 08/16/18 11:25: Bedside Glucose (Misc Panel) 104 Jayne Denise Aug 16, 2018 11:44
[2018-08-16 13:13] LABS: UPEP INTERPRETATION NO M-SPIKE NOTED; URINE VOLUME RANDOM ML
[2018-08-16 14:00] VITALS: BP 126/72
[2018-08-16] MEDS: oxyCODONE 5MG TAB PO PRN (17:15)
--- NOTE | 2018-08-16 20:07 | IPNPDOC ---
Date Seen The patient was seen on 08/15/18. 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 Her apartment is on ground floor, ramps are available into the stores, and her brother and sister in a law do "scrap picker groceries for me on Fridays." She feels comfortable walking unassisted from the bed to the bathroom, and has a nurse cousin, that may be able to help with every other day dressing changes. Pt does not want a bedside commode. " My bathroom is too small. I don't think it will fit, and the toilet is much higher that the one here." Pt hopes to be discharged by . She is concerned about limited resources in [facility] for home care, and "I don't want to pay too much for a walker. I may be able to borrow it from someone in my family." OBJECTIVE: VITALS: PLS SEE BELOW Physical Examination General Exam: Positive: Alert, Cooperative, No Acute Distress Eye Exam: Positive: PERRLA, Conjunctiva & lids normal, EOMI; Negative: Sclera icteric ENT Exam: Positive: Atraumatic, Mucous membr. moist/pink, Pharynx Normal Neck Exam: Positive: Supple; Negative: JVD, thyromegaly Chest Exam: Positivediminished Normal air movement Heart Exam: Positive: Rate Normal, Regular Rhythm, Normal S1, Normal S2; Negative: Murmurs, Rubs Abdomen Exam: Positive: Normal bowel sounds, Soft; Negative: Tenderness, Hepatospenomegaly Extremity Exam: Positive: Edema, Tenderness (left leg), Other (venous stasis changes in the right . on the left there is venous statis changes, bandaged) Neuro Exam: Positive: Normal Speech, Strength at 5/5 X4 ext, Normal Tone Psych Exam: Positive: Mental status NL, Memory Intact, Oriented x 3 laboratory data, imaging studies, microbiology: pls see below Assessment/Plan 52 year old morbidly obese female with BMI of 39.9 was transferred from [facility] severe left leg infected venous stasis ulcers. patient had gone to [facility] with complaints of left lower leg swelling, drainage which started 6 months ago getting progressively worse. Now extremely painful and having difficulty in walking so went to the ED. Has not seen a physician for a long time. She says that the leg really became bad over the past 2 weeks when the ulcer started draining. She complains of sevee pain on rika left leg from the knee to the ankle, burning in charcater and dull throbbing sometimes, 10/10 in intensity without any radiation. She is having difficulty walking due to the severe pain. She was admitted for cellulitis, infected venous stais ulcers and venous stasis dermatitis. New onset DM type 2 -treated for mild DKA -most likely brought on by infected left LE chronic venous ulcers -transferred to [facility] 08/02/18 until acidosis resolved s/p bicarb gtt -s/p insulin iv gtt, q1hr fingersticks, q4hrs bmp until acidosis resolves -s/p ns x 2liters. then d5 with kcl to prevent hypoglycemia -s/p levemir insulin 10 units -bicarbonate 16-17, improved with ivfluids, antibiotics and sodium bicarb -A1c 7.9 -diabetic teaching -consistent carbs diet - will need ophthalmology fu to rule out retinopathy, and [id number] md fu as outpt for a1c monitoring -insulin teaching -will need home care at hospital discharge, but pt concerned about extra costs. Chronic Left LE infected venous ulcers 07/31/18 iv vanco and zosyn renally dosed by pharmacy DVT scan done in other hospital is negative. consulted General surgery Dr. Stone for debridement and wound management. Per Surgery, vascular surgery consult to confirm venous insufficiency and mgt. Continue with dressing changes and iv antibiotics, especially to cover pseudo monas. -s/p iv vanco and iv zosyn. Morbid obesity BMI 39.9 complicating care. at risk for hypercarbia and hypercapnic respiratory failure while on iv morphine, and po norco check nocturnal oximetry flaca protocol acute on ckd3, resolved we do not have any old labs pt has not seen a physician in decades "If it's not broken, don't fix it," per the patient 08/03/18. she does have a low bicarb and high anion gap also had NSAID use prior to hospital admission, now with new onset DM2 IVfluid trial with bicarb gtt which nephrology is managing monitor urine output pharmacy to renally dose iv vanco and zosyn daily weights strict i/o renal us: wnl acute metabolic acidosis, resolved managed by nephrology thought to be due to ckd mild stenosis of proximal LYNDA vascular surgery consulted. Diet: consistent carbs VS, I&O, 24H, Fishbone Vital Signs/I&O Vital Signs Date Time Temp Pulse Resp B/P (MAP) Pulse Ox O2 Delivery O2 Flow Rate FiO2 08/15/18 14:00 97.4 52 24 160/62 (94) 97 08/15/18 09:10 Room Air 08/10/18 21:00 2.0 I&O- Last 24 Hours up to 6 AM 08/15/18 06:00 Intake Total 2100 ml Output Total 175 ml Balance 1925 ml Laboratory Data 24H LABS Laboratory Tests 2 08/14/18 20:32: Bedside Glucose (Misc Panel) 132H 08/15/18 05:33: Nucleated Red Blood Cells % (auto) 0.0, Anion Gap 9, Glomerular Filtration Rate 41.7L, Blood Urea Nitrogen 27H, Creatinine 1.40H, Sodium Level 142, Potassium Level 3.4L, Chloride Level 112H, Carbon Dioxide Level 21, Calcium Level 8.0L 08/15/18 05:58: Bedside Glucose (Misc Panel) 99 CBC/BMP Laboratory Tests 08/15/18 05:33 Red Blood Count 3.47 L, Mean Corpuscular Volume 83.0, Mean Corpuscular Hemoglobin 26.2 L, Mean Corpuscular Hemoglobin Concent 31.6 L, Red Cell Distribution Width 15.3 H, Calcium Level 8.0 L KATHRYN DOTSON MD Aug 15, 2018 15:28
--- NOTE | 2018-08-16 20:11 | IPNPDOC ---
Date Seen The patient was seen on 08/16/18. Progress Note SUBJECTIVE: Arrangements are being made for discharge on . Wound care referral has been made, but dressing changes need to be done by family which the patient says she can arrange with her RN cousin. She has had no other issues overnight. no fever, chills. pain is tolerable with pain meds during dressing changes. Shehas not passed HSE, but plans on going home, and not placement. Medicaid application has been done, still discharge plans to be finalized. OBJECTIVE: VITALS: PLS SEE BELOW Physical Examination General Exam: Positive: Alert, Cooperative, No Acute Distress Eye Exam: Positive: PERRLA, Conjunctiva & lids normal, EOMI; Negative: Sclera icteric ENT Exam: Positive: Atraumatic, Mucous membr. moist/pink, Pharynx Normal Neck Exam: Positive: Supple; Negative: JVD, thyromegaly Chest Exam: Positivediminished Normal air movement Heart Exam: Positive: Rate Normal, Regular Rhythm, Normal S1, Normal S2; Negative: Murmurs, Rubs Abdomen Exam: Positive: Normal bowel sounds, Soft; Negative: Tenderness, Hepatospenomegaly Extremity Exam: Positive: Edema, Tenderness (left leg), Other (venous stasis changes in the right . on the left there is venous statis changes, bandaged) Neuro Exam: Positive: Normal Speech, Strength at 5/5 X4 ext, Normal Tone Psych Exam: Positive: Mental status NL, Memory Intact, Oriented x 3 laboratory data, imaging studies, microbiology: pls see below Assessment/Plan 52 year old morbidly obese female with BMI of 39.9 was transferred from [facility] severe left leg infected venous stasis ulcers. patient had gone to [place] ED with complaints of left lower leg swelling, drainage which started 6 months ago getting progressively worse. Now extremely painful and having difficulty in walking so went to the ED. Has not seen a physician for a long time. She says that the leg really became bad over the past 2 weeks when the ulcer started draining. She complains of sevee pain on rika left leg from the knee to the ankle, burning in charcater and dull throbbing sometimes, 10/10 in intensity without any radiation. She is having difficulty walking due to the severe pain. She was admitted for cellulitis, infected venous stais ulcers and venous stasis dermatitis. New onset DM type 2 -treated for mild DKA -most likely brought on by infected left LE chronic venous ulcers -transferred to icu 08/02/18 until acidosis resolved s/p bicarb gtt -s/p insulin iv gtt, q1hr fingersticks, q4hrs bmp until acidosis resolves -s/p ns x 2liters. then d5 with kcl to prevent hypoglycemia -s/p levemir insulin 10 units -bicarbonate 16-17, improved with ivfluids, antibiotics and sodium bicarb -A1c 7.9 -diabetic teaching -consistent carbs diet - will need ophthalmology fu to rule out retinopathy, and [id number] md fu as outpt for a1c monitoring -insulin teaching -will need home care at hospital discharge, but pt concerned about extra costs. Chronic Left LE infected venous ulcers 07/31/18 iv vanco and zosyn renally dosed by pharmacy DVT scan done in other hospital is negative. consulted General surgery Dr. Stone for debridement and wound management. Per Surgery, vascular surgery consult to confirm venous insufficiency and mgt. Continue with dressing changes and iv antibiotics, especially to cover pseudomonas. -s/p iv vanco and iv zosyn. Morbid obesity BMI 39.9 complicating care. at risk for hypercarbia and hypercapnic respiratory failure while on iv morphine, and po norco check nocturnal oximetry flaca protocol acute on ckd3, resolved we do not have any old labs pt has not seen a physician in decades "If it's not broken, don't fix it," per the patient 08/03/18. she does have a low bicarb and high anion gap also had NSAID use prior to hospital admission, now with new onset DM2 IVfluid trial with bicarb gtt which nephrology is managing monitor urine output pharmacy to renally dose iv vanco and zosyn daily weights strict i/o renal us: wnl acute metabolic acidosis, resolved managed by nephrology thought to be due to ckd mild stenosis of proximal LYNDA vascular surgery consulted, but no acute surgical intervention needed at this t deb. Diet: consistent carbs Disposition: awaiting physical therapy clearance. Discharge home with home care once passes HSE. VS, I&O, 24H, Fishbone Vital Signs/I&O Vital Signs Date Time Temp Pulse Resp B/P (MAP) Pulse Ox O2 Delivery O2 Flow Rate FiO2 08/16/18 18:40 18 08/16/18 14:00 97.7 70 126/72 (90) 96 08/16/18 09:00 Room Air 08/10/18 21:00 2.0 I&O- Last 24 Hours up to 6 AM 08/16/18 06:00 Intake Total 1770 ml Output Total 0 ml Balance 1770 ml Laboratory Data 24H LABS Laboratory Tests 2 08/15/18 20:31: Bedside Glucose (Misc Panel) 120H 08/16/18 06:10: Bedside Glucose (Misc Panel) 94 08/16/18 11:25: Bedside Glucose (Misc Panel) 104 08/16/18 16:38: Bedside Glucose (Misc Panel) 117H KATHRYN DOTSON MD Aug 16, 2018 20:11
[2018-08-17] MEDS: oxyCODONE 5MG TAB PO SCH ×2 (04:46→17:19)
[2018-08-17] MEDS: SODIUM CHLORIDE 0.9% INJ 10 ML SYR IV SCH ×2 (04:47→17:17)
[2018-08-17 06:00] VITALS: BP 130/73
[2018-08-17] MEDS ORDERED: OXYCO5TA PO ×2 (06:51→06:55)
[2018-08-17] MEDS ORDERED: DOXY-350 PO (06:51)
[2018-08-17] MEDS ORDERED: LEVA1TAB2 PO (06:51)
[2018-08-17 07:21] LABS: HEMATOCRIT 29.4 % (36.0-47.0); HEMOGLOBIN 9.2 g/dl (12.0-15.5); MEAN CORPUSCULAR HEMOGLOBIN 26.6 pg (27.0-33.0); MEAN CORPUSCULAR HGB CONC 31.3 g/dl (32.0-36.5); PLATELET COUNT, AUTOMATED 273 10^3/uL (150-450); RED BLOOD COUNT 3.46 10^6/uL (4.00-5.40); WHITE BLOOD COUNT 5.3 10^3/uL (4.0-10.0)
[2018-08-17 07:45] LABS: CALCIUM LEVEL 8.1 MG/DL (8.5-10.1); CHOLESTEROL RISK RATIO 3.857 (<5); CREATININE FOR GFR 1.19 MG/DL (0.55-1.30); GLOMERULAR FILTRATION RATE 50.3 (>51); POTASSIUM SERUM 3.2 MEQ/L (3.5-5.1)
[2018-08-17 08:02] LABS: HEMOGLOBIN A1c 8.1 %
[2018-08-17] MEDS: SUCRALFATE SUSP 1GM/10ML UD PO SCH ×3 (08:33→17:17)
[2018-08-17] MEDS: ENOXAPARIN 30 MG/0.3 ML SYR (J1650) SC SCH (08:33)
[2018-08-17] MEDS: OMEPRAZOLE 20 MG CAP PO SCH (08:33)
[2018-08-17] MEDS: cefTRIAXone SOD 1 GM in D5W MINI-BAG PLUS 50 ML IV SCH (08:34)
[2018-08-17] MEDS ORDERED: POTASSIUM CHLORIDE 10 MEQ SR TABLET PO ONE (10:00)
--- NOTE | 2018-08-17 10:20 | DS.PDOC ---
Discharge Summary General Date of Admission Jul 31, 2018 at 22:53 Date of Discharge August 17, 2018 Discharge Summary CONSULTANTS: NEPHROLOGY-DR KAYDEN BORJA, DR. BRII BORJA VASCULAR SURGEON- DR. MAYFIELD GENERAL SURGEON-DR. STONE PROCEDURES BEDSIDE DEBRIDEMENT-DR. STONE DISCHARGE DIAGNOSES: Infected left LE venous ulcer wound cx: MRSA and morganella DM2, new onset Metabolic Acidosis mild DKA with hypoglycemia acute on CKD3 Diabetic nephropathy Morbid Obesity BMI 42.9 Probable JANIE proximal LYNDA stenosis, mild Chronic venous insufficiency DISCHARGE MEDICATIONS: PLS SEE BELOW DISCHARGE INSTRUCTIONS: 1. New onset DM2 with hypoglycemia: PCP fu for mgt and ophtho referral 2. Infected venous ulcer: Dressing changes per Surgery, Fu with wound center Dr. Lomas 3. CKD3- Nephrology fu HISTORY OF PRESENTING ILLNESS: 52 year old morbidly obese female with BMI of 39.9 was transferred from [facility] severe left leg infected venous stasis ulcers. patient had gone to [place] ED with complaints of left lower leg swelling, drainage which started 6 months ago getting progressively worse. Now extremely painful and having difficulty in walking so went to the ED. Has not seen a physician for a long time. She says that the leg really became bad over the past 2 weeks when the ulcer started draining. She complains of sevee pain on rika left leg from the knee to the ankle, burning in charcater and dull throbbing sometimes, 10/10 in intensity without any radiation. She is having difficulty walking due to the severe pain. She was admitted for cellulitis, infected venous stais ulcers and venous stasis dermatitis. HOSPITAL COURSE: New onset DM type 2 -treated for mild DKA -most likely brought on by infected left LE chronic venous ulcers -transferred to icu 08/02/18 until acidosis resolved s/p bicarb gtt -s/p insulin iv gtt, q1hr fingersticks, q4hrs bmp until acidosis resolves -s/p ns x 2liters. then d5 with kcl to prevent hypoglycemia -s/p levemir insulin 10 units -bicarbonate 16-17, improved with ivfluids, antibiotics and sodium bicarb -A1c 7.9 -diabetic teaching -consistent carbs diet - will need ophthalmology fu to rule out retinopathy, and [id number] md fu as outpt for a1c monitoring -insulin teaching -will need home care at hospital discharge, but pt concerned about extra costs. Chronic Left LE infected venous ulcer 07/31/18 iv vanco and zosyn renally dosed by pharmacy DVT scan done in other hospital is negative. consulted General surgery Dr. Stone for debridement and wound management. Per Surgery, vascular surgery consult to confirm venous insufficiency and mgt. Continue with dressing changes and iv antibiotics, especially to cover pseudomonas. -s/p iv vanco and iv zosyn. -IV ceftriaxone -wound cx: MRSA and morganella sensitive to tetracycline and levaquin. Morbid obesity BMI 39.9 complicating care. at risk for hypercarbia and hypercapnic respiratory failure while on iv morphine, and po norco check nocturnal oximetry janie protocol acute on ckd3, resolved we do not have any old labs pt has not seen a physician in decades "If it's not broken, don't fix it," per the patient 08/03/18. she does have a low bicarb and high anion gap also had NSAID use prior to hospital admission, now with new onset DM2 IVfluid trial with bicarb gtt which nephrology is managing monitor urine output pharmacy to renally dose iv vanco and zosyn daily weights strict i/o renal us: wnl acute metabolic acidosis, resolved managed by nephrology thought to be due to ckd mild stenosis of proximal LYNDA vascular surgery consulted, but no acute surgical intervention needed at this time. Diet: consistent carbs DISCHARGE Physical Examination vitals: pls see below General Exam: Positive: Alert, Cooperative, No Acute Distress Eye Exam: Positive: PERRLA, Conjunctiva & lids normal, EOMI; Negative: Sclera icteric ENT Exam: Positive: Atraumatic, Mucous membr. moist/pink, Pharynx Normal Neck Exam: Positive: Supple; Negative: JVD, thyromegaly Chest Exam: Positivediminished Normal air movement Heart Exam: Positive: Rate Normal, Regular Rhythm, Normal S1, Normal S2; Negative: Murmurs, Rubs Abdomen Exam: Positive: Normal bowel sounds, Soft; Negative: Tenderness, Hepatospenomegaly Extremity Exam: Positive: Edema, Tenderness (left leg), Other (venous stasis changes in the right . on the left there is venous statis changes, bandaged) Neuro Exam: Positive: Normal Speech, Strength at 5/5 X4 ext, Normal Tone Psych Exam: Positive: Mental status NL, Memory Intact, Oriented x 3 laboratory data, imaging studies, microbiology: pls see below TIME SPENT ON DISCHARGE: 32 MIN Vital Signs/I&Os Vital Signs Date Time Temp Pulse Resp B/P (MAP) Pulse Ox O2 Delivery O2 Flow Rate FiO2 08/17/18 09:59 50 18 96 Room Air 08/17/18 06:00 98.3 130/73 (92) I&O- Last 24 Hours up to 6 AM 08/17/18 06:00 Intake Total 1915 ml Output Total 0 ml Balance 1915 ml Laboratory Data Labs 24H Laboratory Tests 2 08/16/18 11:25: Bedside Glucose (Misc Panel) 104 08/16/18 16:38: Bedside Glucose (Misc Panel) 117H 08/16/18 20:20: Bedside Glucose (Misc Panel) 123H 08/17/18 06:03: Bedside Glucose (Misc Panel) 100 08/17/18 06:56: Nucleated Red Blood Cells % (auto) 0.0, Anion Gap 8, Glomerular Filtration Rate 50.3L, Calcium Level 8.1L, Triglycerides Level 61, LDL Cholesterol 108H, Total Cholesterol 162, Non-HDL Cholesterol (LDL + VLDL) 120, Total HDL Cholesterol 42, Cholesterol/HDL Ratio 3.857 08/17/18 06:57: Estimated Mean Plasma Glucose 186H, Hemoglobin A1c 8.1 CBC/BMP Laboratory Tests 08/17/18 06:56 Red Blood Count 3.46 L, Mean Corpuscular Volume 85.0, Mean Corpuscular Hemoglobin 26.6 L, Mean Corpuscular Hemoglobin Concent 31.3 L, Red Cell Distribution Width 15.4 H FSBS Laboratory Tests Test 08/16/18 11:25 08/16/18 16:38 08/16/18 20:20 08/17/18 06:03 Range/Units Bedside Glucose (Misc Panel) 104 117 123 100 70-105 MG/DL Discharge Medications Scheduled Doxycycline Monohydrate (Doxycycline) 100 Mg Capsule, 100 MG PO BID Levofloxacin (Levaquin) 500 Mg Tablet, 250 TAB PO DAILY Omeprazole Magnesium (Prilosec Otc) 20 Mg Tablet.dr, 20 MG PO DAILY, (Reported) Scheduled PRN Oxycodone HCl (Oxycodone HCl) 5 Mg Tablet, 5 MG PO Q4HP PRN for PAIN Allergies Coded Allergies: No Known Allergies (Verified Allergy, Unknown, 6/24/19) KATHRYN DOTSON MD Aug 17, 2018 10:20
[2018-08-17 14:00] VITALS: BP 142/72
== END 2018-08-17 18:10 | disposition home or self-care (01) | DRG 197 ==
LOC: M MSPAV 22:12 → OBSVTOIN 22:53 → EEVIPCON 22:53 → M ICU 08-02 14:00 → M MSPAV 08-04 14:25
PROVIDERS: ADMIT Internal Medicine Nephrology; ATTEND General Practice
PROC: 02HV33Z Insertion of Infusion Device into Superior Vena Cava, Percutaneous Approach (ICD-10-PCS; principal; 2018-08-02)
DX: I87.2 Venous insufficiency (chronic) (peripheral) (principal); E11.10 Type 2 diabetes mellitus with ketoacidosis without coma; E87.2 Acidosis; N17.9 Acute kidney failure, unspecified; E11.21 Type 2 diabetes mellitus with diabetic nephropathy; E11.649 Type 2 diabetes mellitus with hypoglycemia without coma; L03.116 Cellulitis of left lower limb; N18.3 Chronic kidney disease, stage 3 (moderate); E66.01 Morbid (severe) obesity due to excess calories; L97.929 Non-pressure chronic ulcer of unspecified part of left lower leg with unspecified severity; B95.62 Methicillin resistant Staphylococcus aureus infection as the cause of diseases classified elsewhere; G47.33 Obstructive sleep apnea (adult) (pediatric); Z68.39 Body mass index [BMI] 39.0-39.9, adult; E87.6 Hypokalemia; R33.9 Retention of urine, unspecified

== ENCOUNTER → 2018-08-24 | Outpatient (REF) | payer MEDICAID ==
[~2018-08-24] MED LIST: DOXY-350 PO; IBUP-1094 PO; LEVA1TAB2 PO; OXYCO5TA PO; PRIL20TA2 PO
[2018-08-24 11:37] LABS: BASO # 0.1 10^3/uL (0.0-0.2); BASO % 1.3 % (0.0-1.0); EOS # 0.2 10^3/uL (0.0-0.50); EOS % 2.8 % (0.0-3.0); HEMOGLOBIN 10.8 g/dl (12.0-15.5); LYMPH # 1.4 10^3/uL (1.5-4.5); MEAN CORPUSCULAR HEMOGLOBIN 26.7 pg (27.0-33.0); MEAN CORPUSCULAR HGB CONC 31.8 g/dl (32.0-36.5); MONO # 0.5 10^3/uL (0.0-0.8); NEUTROPHILS # 3.2 10^3/uL (1.8-7.7); NEUTROPHILS % 59.2 % (36.0-66.0); PLATELET COUNT, AUTOMATED 310 10^3/uL (150-450); RED BLOOD COUNT 4.05 10^6/uL (4.00-5.40); WHITE BLOOD COUNT 5.4 10^3/uL (4.0-10.0)
[2018-08-24 12:11] LABS: CALCIUM LEVEL 9.2 MG/DL (8.5-10.1); CREATININE FOR GFR 1.13 MG/DL (0.55-1.30); FOLATE 13.1 NG/ML; GLOMERULAR FILTRATION RATE 53.4 (>51); POTASSIUM SERUM 2.9 MEQ/L (3.5-5.1)
== END ==
LOC: M SFHCPLAZ 09:51
PROVIDERS: ATTEND Family Medicine
DX: D64.9 Anemia, unspecified (principal); N18.3 Chronic kidney disease, stage 3 (moderate)

== ENCOUNTER → 2018-08-25 | Outpatient (REF) | payer MEDICAID ==
[2018-08-25 18:36] LABS: BLOOD UREA NITROGEN 19 MG/DL (7-18); CALCIUM LEVEL 8.7 MG/DL (8.5-10.1); CARBON DIOXIDE LEVEL 21 MEQ/L (21-32); CHLORIDE LEVEL 112 MEQ/L (98-107); GLOMERULAR FILTRATION RATE > 60.0 (>51); GLUCOSE, FASTING 80 MG/DL (70-100); POTASSIUM SERUM 3.9 MEQ/L (3.5-5.1); SODIUM LEVEL 143 MEQ/L (136-145)
== END ==
LOC: M SFHCPLAZ 17:28
PROVIDERS: ATTEND Family Medicine
DX: E87.6 Hypokalemia (principal)

== ENCOUNTER → 2018-09-01 | Outpatient (REF) | payer MEDICAID ==
[2018-09-01 14:09] LABS: BLOOD UREA NITROGEN 16 MG/DL (7-18); CALCIUM LEVEL 9.5 MG/DL (8.5-10.1); CARBON DIOXIDE LEVEL 21 MEQ/L (21-32); CHLORIDE LEVEL 111 MEQ/L (98-107); CREATININE FOR GFR 0.95 MG/DL (0.55-1.30); GLOMERULAR FILTRATION RATE > 60.0 (>51); GLUCOSE, FASTING 100 MG/DL (70-100); POTASSIUM SERUM 4.2 MEQ/L (3.5-5.1); SODIUM LEVEL 140 MEQ/L (136-145)
== END ==
LOC: M SFHCWOUN 11:22
PROVIDERS: ATTEND Physician Assistant
DX: E87.6 Hypokalemia (principal)

== ENCOUNTER → 2018-09-05 | Outpatient (CLI) | payer MEDICAID ==
[2018-09-05 11:34] LABS: APPEARANCE, URINE HAZY (CLEAR); BACTERIA, URINE AUTO NEGATIVE (NEGATIVE); BILIRUBIN, URINE AUTO NEGATIVE (NEGATIVE); BLOOD, URINE BLOOD NEGATIVE (NEGATIVE); COLOR, URINE YELLOW (YELLOW); GLUCOSE, URINE (UA) AUTO NEGATIVE (NEGATIVE); KETONE, URINE AUTO NEGATIVE (NEGATIVE); LEUKOCYTE ESTERASE, URINE AUTO 1+ (NEGATIVE); MUCUS, URINE SMALL (NEGATIVE); NITRITE, URINE AUTO NEGATIVE (NEGATIVE); PROTEIN, URINE AUTO NEGATIVE (NEGATIVE); RBC, URINE AUTO 4 /HPF (0-3); SQUAMOUS EPITHELIAL CELL UR AU 12 /HPF (0-6); UROBILINOGEN, URINE AUTO 0.2 mg/dL (0.0-2.0); WBC, URINE AUTO 5 /HPF (0-3)
[2018-09-05 11:34] LABS: BASO % 0.4 % (0.0-1.0); EOS # 0.3 10^3/uL (0.0-0.50); EOS % 2.7 % (0.0-3.0); HEMATOCRIT 43.1 % (36.0-47.0); HEMOGLOBIN 13.6 g/dl (12.0-15.5); LYMPH # 2.6 10^3/uL (1.5-4.5); LYMPH % 28.7 % (24.0-44.0); MEAN CORPUSCULAR HEMOGLOBIN 26.6 pg (27.0-33.0); MEAN CORPUSCULAR HGB CONC 31.6 g/dl (32.0-36.5); MEAN CORPUSCULAR VOLUME 84.3 fl (80.0-96.0); MONO # 0.7 10^3/uL (0.0-0.8); MONO % 7.6 % (0.0-5.0); NEUTROPHILS # 5.5 10^3/uL (1.8-7.7); NEUTROPHILS % 60.3 % (36.0-66.0); PLATELET COUNT, AUTOMATED 228 10^3/uL (150-450); RED BLOOD COUNT 5.11 10^6/uL (4.00-5.40); WHITE BLOOD COUNT 9.1 10^3/uL (4.0-10.0)
[2018-09-05 12:24] LABS: ALBUMIN 3.6 GM/DL (3.2-5.2); CALCIUM LEVEL 9.6 MG/DL (8.5-10.1); CREATININE FOR GFR 1.13 MG/DL (0.55-1.30); GLOMERULAR FILTRATION RATE 53.4 (>51); PHOSPHORUS LEVEL 3.9 MG/DL (2.5-4.9); POTASSIUM SERUM 4.5 MEQ/L (3.5-5.1); PTH INTACT 54.5 PG/ML (18.5-88.0)
== END ==
LOC: M LAB 10:49
PROVIDERS: ATTEND Internal Medicine Nephrology
DX: N18.9 Chronic kidney disease, unspecified (principal); D63.1 Anemia in chronic kidney disease

== ENCOUNTER → 2018-10-27 | Outpatient (REF) | payer OTHER ==
[2018-10-27 12:31] LABS: HEMATOCRIT 45.3 % (36.0-47.0); HEMOGLOBIN 14.2 g/dl (12.0-15.5); MEAN CORPUSCULAR HEMOGLOBIN 27.4 pg (27.0-33.0); MEAN CORPUSCULAR HGB CONC 31.3 g/dl (32.0-36.5); MEAN CORPUSCULAR VOLUME 87.3 fl (80.0-96.0); PLATELET COUNT, AUTOMATED 282 10^3/uL (150-450); RED BLOOD COUNT 5.19 10^6/uL (4.00-5.40); WHITE BLOOD COUNT 8.5 10^3/uL (4.0-10.0)
[2018-10-27 12:32] LABS: BLOOD UREA NITROGEN 23 MG/DL (7-18); CALCIUM LEVEL 9.6 MG/DL (8.5-10.1); CARBON DIOXIDE LEVEL 22 MEQ/L (21-32); CHLORIDE LEVEL 108 MEQ/L (98-107); CREATININE FOR GFR 0.86 MG/DL (0.55-1.30); GLOMERULAR FILTRATION RATE > 60.0 (>51); GLUCOSE, FASTING 107 MG/DL (70-100); POTASSIUM SERUM 4.4 MEQ/L (3.5-5.1); SODIUM LEVEL 140 MEQ/L (136-145)
[2018-10-28 05:44] LABS: HEMOGLOBIN A1c 5.9 %
== END ==
LOC: M SFHCPLAZ 10:14
PROVIDERS: ATTEND Family Medicine
DX: D64.9 Anemia, unspecified (principal); E11.69 Type 2 diabetes mellitus with other specified complication; N18.3 Chronic kidney disease, stage 3 (moderate); E87.6 Hypokalemia

== ENCOUNTER → 2019-06-29 | Outpatient (REF) | payer OTHER ==
[2019-06-29 11:29] LABS: BLOOD UREA NITROGEN 15 MG/DL (7-18); CALCIUM LEVEL 9.5 MG/DL (8.5-10.1); CARBON DIOXIDE LEVEL 25 MEQ/L (21-32); CHLORIDE LEVEL 109 MEQ/L (98-107); CREATININE FOR GFR 0.87 MG/DL (0.55-1.30); GLOMERULAR FILTRATION RATE > 60.0 (>51); GLUCOSE, FASTING 104 MG/DL (70-100); POTASSIUM SERUM 4.1 MEQ/L (3.5-5.1); SODIUM LEVEL 142 MEQ/L (136-145)
[2019-06-29 14:26] LABS: HEMOGLOBIN A1c 6.5 %
== END ==
LOC: M PLALAB 08:34
PROVIDERS: ATTEND Family Medicine
DX: E11.69 Type 2 diabetes mellitus with other specified complication (principal); I10 Essential (primary) hypertension

== ENCOUNTER → 2019-07-03 | Outpatient (POV) | payer OTHER ==
--- NOTE | 2019-07-04 10:20 | IRCOV ---
[facility] IR Consult Office Visit IR Consult Office Visit DATE: July 03, 2019 Consent was given by patient for this telephone call. Length of call was 25 minutes. REASON FOR CONSULTATION/CHIEF COMPLAINT: Venous ulcers HISTORY OF PRESENT ILLNESS: 53 year old female with Diabetes, HTN and hyperlipidemia presents with recurrent and refractory left leg wounds. This first occurred greater then a year ago when she describes "painful holes" in her legs. She was treated for infected venous ulcers. These took greater than 6 months to heal and she is under the care of wound care. Since the initial ulcers healed, she reports intermittent sores which develop on the outer and back sides of the left calf. She seeks out wound care at the first sign of an ulcer. These are painless. She wear bilateral compression stocking and elevates her legs for prevention. She report leg swelling without compression therapy and skin discoloration. No prior vein therapy or DVT. ALLERGIES: Please see below. HOME MEDICATIONS: Please see below. PAST MEDICAL HISTORY: DM HTN HL CKD SURGICAL HISTORY: No vein therapy FAMILY HISTORY: Non contributory SOCIAL HISTORY: Smoker. occasional alcohol. Denies drugs. REVIEW OF SYSTEMS: Otherwise negative. PHYSICAL EXAMINATION: No video on patient side. I reviewed the images of the ulcers from wound care. Shallow ulcers on the lateral edge of lower leg and ankle. LABORATORY DATA: 06/29/19 Na 142 K 4.1 BUN 15 Cr 0.87 GFR > 60 HgbA1c 6.5 Imaging: I personally reviewed the lower extremity arterial ultrasound performed July 2018. The left lower extremity arteries are patent. I personally reviewed the venous reflux study performed in July 2018. There is left greater saphenous vein dilation with > 0.5 second reflux at rest. Minimal reflux left lesser saphenous vein. Right Greater and lesser saphenous demonstrate no reflux. ASSESSMENT/PLAN: 53 year old female with recurrent and refractory left lower extremity venous ulcers, venous hypertension and left GSV incompetence. She is a good candidate for left leg GSV EVLT therapy. We discussed the risks and benefits of the procedure and patient would like to proceed. We'll schedule the patient for the procedure. I spent 25 minutes in telephone consultation with the patient. Thank you for this referral. cc Dr. Lomas CC Meaghan Loya Allergies Coded Allergies: No Known Allergies (Verified Allergy, Unknown, 07/31/18) Home Medications Scheduled Doxycycline Monohydrate (Doxycycline), 100 MG PO BID Levofloxacin (Levaquin), 250 TAB PO DAILY Omeprazole Magnesium (Prilosec Otc), 20 MG PO DAILY, (Reported) Scheduled PRN Oxycodone HCl (Oxycodone HCl), 5 MG PO Q4HP PRN for PAIN NAOMI MATTA MD July 04, 2019 10:20
== END ==
LOC: M TMIRPOV 13:17
PROVIDERS: ATTEND Radiology Diagnostic Radiology
DX: I87.312 Chronic venous hypertension (idiopathic) with ulcer of left lower extremity (principal); L97.809 Non-pressure chronic ulcer of other part of unspecified lower leg with unspecified severity; E11.622 Type 2 diabetes mellitus with other skin ulcer; I10 Essential (primary) hypertension; E78.5 Hyperlipidemia, unspecified

== ENCOUNTER → 2019-07-23 | Outpatient (CLI) | payer OTHER ==
[~2019-07-23] MED LIST changes: +AMLO25TA PO; +ATOR40TA75 PO; +K-TA10TA PO; +LIDOCAINE 1% MDV 20ML VIAL As Ordered ONE; +LIDOCAINE 2% MDV 20ML VIAL As Ordered ONE; +METF10004 PO; +MIDAZOLAM INJ 2MG/2ML VIAL (J2250 PER 1MG) As Ordered ONE; +PROMETHAZINE INJ 25 MG/ML VIAL (J2550) As Ordered ONE; +diphenhydrAMINE 50MG/ML VIAL (J1200) As Ordered ONE; +fentaNYL 100 MCG/2 ML INJECTION (J3010) As Ordered ONE
[2019-07-23 12:40] LABS: HEMATOCRIT 44.4 % (36.0-47.0); HEMOGLOBIN 13.9 g/dl (12.0-15.5); MEAN CORPUSCULAR HEMOGLOBIN 27.1 pg (27.0-33.0); MEAN CORPUSCULAR HGB CONC 31.3 g/dl (32.0-36.5); MEAN CORPUSCULAR VOLUME 86.5 fl (80.0-96.0); PLATELET COUNT, AUTOMATED 219 10^3/uL (150-450); RED BLOOD COUNT 5.13 10^6/uL (4.00-5.40); WHITE BLOOD COUNT 10.7 10^3/uL (4.0-10.0)
--- NOTE | 2019-07-23 15:35 | IRHP ---
[facility] IR Pre-Procedure H & P General Date of Service: Jul 23, 2019 Procedure: Same Day Surgery Interval History and Physical I have seen the patient and reviewed last H & P performed within 30 days. There is no significant interval change. History of Present Illness Chief Complaint The patient is a 53-year-old female admitted with a reason for visit of Venous Insufficiency, Ulcer. PRE-PROCEDURE DIAGNOSIS: left leg varicose veins HEART: normal rate. LUNGS: normal breathing at rest. ASA Classification ASA Classification: III-Severe systemic dis. Mallampati Score: II NPO: Yes Problems with prior sedation: No Obstructive Sleep Apnea: No Plan moderate sedation Allergies Coded Allergies: No Known Allergies (Verified Allergy, Unknown, 07/31/18) Home Medications Scheduled Amlodipine Besylate (Amlodipine Besylate), 5 MG PO DAILY, (Reported) Atorvastatin Calcium (Atorvastatin Calcium), 40 MG PO DAILY, (Reported) Metformin HCl (Metformin HCl), 1,000 MG PO DAILY, (Reported) Omeprazole Magnesium (Prilosec Otc), 20 MG PO DAILY, (Reported) Potassium Chloride (K-Tab ER), 20 MEQ PO DAILY, (Reported) Scheduled PRN Oxycodone HCl (Oxycodone HCl), 5 MG PO Q4HP PRN for PAIN Discontinued Medications Doxycycline Monohydrate (Doxycycline), 100 MG PO BID Discontinued Reason: Pt states not taking Levofloxacin (Levaquin), 250 TAB PO DAILY Discontinued Reason: Pt states not taking VS, I&O, 24H, Fishbone Vital Signs/I&O Vital Signs Date Time Temp Pulse Resp B/P (MAP) Pulse Ox O2 Delivery O2 Flow Rate FiO2 07/23/19 14:30 64 18 98 Room Air 07/23/19 14:15 3 07/23/19 11:45 98.4 Laboratory Data 24H LABS Laboratory Tests 2 07/23/19 12:14: Nucleated Red Blood Cells % (auto) 0.0 CBC/BMP Laboratory Tests 07/23/19 12:14 NAOMI MATTA MD Jul 23, 2019 15:35
--- NOTE | 2019-07-23 15:36 | POST-OPPD ---
Postoperative Procedure Note Date Of Procedure: Jul 23, 2019 Time Of Procedure: 15:35 PREOPERATIVE DIAGNOSIS: left leg varicose veins POSTOPERATIVE DIAGNOSIS: same FINDINGS: incompetent left anterior accessory GSV PROCEDURE: EVLT left anterior accessory GSV SURGEON: Shana ANESTHESIA: mod sed ESTIMATED BLOOD LOSS: < 5 ml COMPLICATIONS: none POSTOPERATIVE CONDITION: stable NAOMI MATTA MD Jul 23, 2019 15:36
[2019-07-23 16:00] VITALS: BP 120/60
--- NOTE | 2019-07-25 12:35 | REP ---
IR Endovenous laser treatment for left leg varicose vein. IR Ultrasound of the left leg. IR Tumescent anesthesia under ultrasound guidance. IR moderate sedation. Clinical information: Left leg venous hypertension and nonhealing ulcers. Physician: Dr. Saldana. Procedure: The patient was advised of the benefits, risks and alternatives of the procedure and informed consent was obtained. The time-out was performed with verification of the patient's name, MRN, site of procedure and type of procedure to be performed. The patient was positioned in the supine position on the table. The site was prepped and draped in the usual sterile fashion. Moderate sedation was performed by the physician including the presence of an independent trained observer who assisted in monitoring the patient's level of consciousness and physiologic status. Following the administration of fentanyl and Versed , the physician spent 60 minutes of continuous face to face time with the patient. Ultrasound of the left lower extremity demonstrates incompetent left anterior accessory greater saphenous vein with greater than 0.5 seconds reflux. The access site was identified with ultrasound and anesthetized with lidocaine. The anterior accessory GSV was accessed under ultrasound guidance distal thigh, using a micro introducer needle. An 018 cope wire was advanced into the vein. Incision at the access site was made using a scalpel. The needle was removed and a micro sheath was advanced over the wire under ultrasound guidance. The wire was exchanged for a longer wire. The micro sheath was removed over the wire and a an access sheath was advanced over the wire, under ultrasound guidance. The laser fiber was then advanced through the sheath, under ultrasound guidance and the tip of the laser fiber was positioned > 2.5 cm from the saphenous femoral junction. Tumescent anesthesia was then injected under ultrasound guidance along the entire length of the vein to be treated. Repeat ultrasound of the saphenofemoral junction was used to confirm positioning of the tip of the laser back > 2.5 cm from junction. The patient was positioned in Trendelenburg. The laser was then activated and under ultrasound guidance used to laser the anterior accessory greater saphenous vein back to the access point. Simultaneous manual compression was applied to the treated vein. Treatment: Wattage: 7 Time: 136 seconds Pullback rate 1 cm every 7 seconds Total Energy deposited 950 joules Treatment 50 joules per centimeter of vein. The fiber and sheath were removed, pressure held and hemostasis achieved. A sterile dressing was applied to the site. Compression dressing was then applied to the leg, from ankle to groin. The patient tolerated the procedure well and was returned to the PRU in stable condition. EBL: < 5 ml. Complications: None. Impression: 1. Ultrasound demonstrates incompetent left anterior accessory greater saphenous vein with greater than 0.5 seconds reflux. 2. Successful left anterior accessory greater saphenous vein ablation with laser. 3. Compression dressing applied from ankle to groin. Patient to return in 1 week for follow up ultrasound at which time the compression dressing will be switched to stockings. Thank you this referral. Cc wound care Electronically Signed by Kita Saldana MD 07/25/2019 12:34 P
== END ==
LOC: M IRPRO 11:27
PROVIDERS: ATTEND Radiology Diagnostic Radiology
DX: I87.312 Chronic venous hypertension (idiopathic) with ulcer of left lower extremity (principal); L97.929 Non-pressure chronic ulcer of unspecified part of left lower leg with unspecified severity
CPT/HCPCS: 36478; 76940; 85027; 99152; 99153; J1200; J2250; J3010

== ENCOUNTER → 2019-07-30 | Outpatient (CLI) | payer OTHER ==
[~2019-07-30] MED LIST changes: -LIDOCAINE 1% MDV 20ML VIAL As Ordered ONE; -LIDOCAINE 2% MDV 20ML VIAL As Ordered ONE; -MIDAZOLAM INJ 2MG/2ML VIAL (J2250 PER 1MG) As Ordered ONE; -PROMETHAZINE INJ 25 MG/ML VIAL (J2550) As Ordered ONE; -diphenhydrAMINE 50MG/ML VIAL (J1200) As Ordered ONE; -fentaNYL 100 MCG/2 ML INJECTION (J3010) As Ordered ONE
--- NOTE | 2019-07-31 05:05 | REP ---
LEFT LOWER EXTREMITY DUPLEX VENOUS ULTRASOUND: HISTORY: 1-week followup status post EVLT therapy greater saphenous vein on the left. Rule out DVT. FINDINGS: The deep veins are anechoic and fully compressible on two-dimensional scanning. Color flow imaging is unremarkable. Spectral Doppler interrogation demonstrates intact respiratory variation in flow normal manual augmentation of flow. There is no evidence of deep vein thrombosis. There is occlusive thrombus within the greater saphenous vein, which extends proximally to within 1.2 cm from the saphenofemoral junction. There is some flow within the greater saphenous vein at the level of the knee. IMPRESSION: No evidence of deep vein thrombosis. Greater saphenous vein thrombosis, as described above.
== END ==
LOC: M WHC 09:30
PROVIDERS: ATTEND Radiology Diagnostic Radiology
DX: I80.02 Phlebitis and thrombophlebitis of superficial vessels of left lower extremity (principal); Z98.890 Other specified postprocedural states

== ENCOUNTER → 2019-10-26 | Outpatient (CLI) | payer OTHER ==
[~2019-10-26] MED LIST changes: -IBUP-1094 PO; +SFHIBU200 PO
[2019-10-26 14:32] LABS: BLOOD UREA NITROGEN 21 MG/DL (7-18); CALCIUM LEVEL 9.3 MG/DL (8.5-10.1); CARBON DIOXIDE LEVEL 23 MEQ/L (21-32); CHLORIDE LEVEL 111 MEQ/L (98-107); CREATININE FOR GFR 0.74 MG/DL (0.55-1.30); GLOMERULAR FILTRATION RATE > 60.0 (>51); GLUCOSE, FASTING 101 MG/DL (70-100); POTASSIUM SERUM 4.3 MEQ/L (3.5-5.1); SODIUM LEVEL 139 MEQ/L (136-145)
== END ==
LOC: M PLALAB 08:40
PROVIDERS: ATTEND Family Medicine
DX: E11.22 Type 2 diabetes mellitus with diabetic chronic kidney disease (principal); N18.3 Chronic kidney disease, stage 3 (moderate); I12.9 Hypertensive chronic kidney disease with stage 1 through stage 4 chronic kidney disease, or unspecified chronic kidney disease

== ENCOUNTER → 2020-03-28 | Outpatient (REF) | payer OTHER ==
[2020-03-28 10:29] LABS: HEMOGLOBIN A1c 6.2 %
[2020-03-28 10:44] LABS: BLOOD UREA NITROGEN 12 MG/DL (7-18); CALCIUM LEVEL 9.6 MG/DL (8.5-10.1); CARBON DIOXIDE LEVEL 27 MEQ/L (21-32); CHLORIDE LEVEL 108 MEQ/L (98-107); CHOLESTEROL LEVEL 174 MG/DL (<200); CHOLESTEROL RISK RATIO 2.383 (<5); CREATININE FOR GFR 0.85 MG/DL (0.55-1.30); GLOMERULAR FILTRATION RATE > 60.0 (>51); GLUCOSE, FASTING 107 MG/DL (70-100); HDL CHOLESTEROL 73 MG/DL (>40); LDL CHOLESTEROL 88 MG/DL (<100); NON-HDL-C 101 MG/DL; POTASSIUM SERUM 4.4 MEQ/L (3.5-5.1); SODIUM LEVEL 142 MEQ/L (136-145); TRIGLYCERIDES LEVEL 67 MG/DL (<150)
[2020-03-28 10:53] LABS: MALB URINE SIEMENS 6.4 MG/L; MAU/CREAT RATIO 13.9 MCG/MG (0.0-30.0)
== END ==
LOC: M SFHCPLAZ 08:07
PROVIDERS: ATTEND Family Medicine
DX: E11.69 Type 2 diabetes mellitus with other specified complication (principal); E78.2 Mixed hyperlipidemia; I10 Essential (primary) hypertension; N18.31 Chronic kidney disease, stage 3a

== ENCOUNTER → 2020-11-21 | Outpatient (REF) | payer OTHER ==
[2020-11-21 12:42] LABS: BASO % 0.5 % (0.0-1.0); EOS # 0.1 10^3/uL (0.0-0.5); EOS % 1.1 % (0.0-3.0); HEMATOCRIT 44.8 % (36.0-47.0); HEMOGLOBIN 14.1 g/dl (12.0-15.5); LYMPH # 2.5 10^3/uL (1.5-5.0); MEAN CORPUSCULAR HEMOGLOBIN 27.3 pg (27.0-33.0); MEAN CORPUSCULAR HGB CONC 31.5 g/dl (32.0-36.5); MEAN CORPUSCULAR VOLUME 86.8 fl (80.0-96.0); MONO # 0.4 10^3/uL (0.0-0.8); MONO % 4.8 % (2.0-8.0); NEUTROPHILS # 5.8 10^3/uL (1.5-8.5); NEUTROPHILS % 65.4 % (36.0-66.0); PLATELET COUNT, AUTOMATED 186 10^3/uL (150-450); RED BLOOD COUNT 5.16 10^6/uL (4.00-5.40); WHITE BLOOD COUNT 8.9 10^3/uL (4.0-10.0)
== END ==
LOC: M LAB REF 11:53
PROVIDERS: ATTEND Physician Assistant
DX: I87.312 Chronic venous hypertension (idiopathic) with ulcer of left lower extremity (principal)

== ENCOUNTER → 2021-06-24 | Outpatient (CLI) | payer OTHER ==
[2021-06-24 11:08] LABS: BLOOD UREA NITROGEN 12 MG/DL (7-18); CALCIUM LEVEL 9.3 MG/DL (8.5-10.1); CARBON DIOXIDE LEVEL 26 MEQ/L (21-32); CHLORIDE LEVEL 109 MEQ/L (98-107); CHOLESTEROL LEVEL 171 MG/DL (<200); CHOLESTEROL RISK RATIO 2.478 (<5); CREATININE FOR GFR 0.81 MG/DL (0.55-1.30); GLOMERULAR FILTRATION RATE > 60.0 (>51); GLUCOSE, FASTING 102 MG/DL (70-100); HDL CHOLESTEROL 69 MG/DL (>40); LDL CHOLESTEROL 82 MG/DL (<100); NON-HDL-C 102 MG/DL; POTASSIUM SERUM 4.2 MEQ/L (3.5-5.1); SODIUM LEVEL 141 MEQ/L (136-145); TRIGLYCERIDES LEVEL 99 MG/DL (<150)
[2021-06-24 11:33] LABS: HEMOGLOBIN A1c 6.2 %
[2021-06-24 11:47] LABS: CREATININE, URINE 16.5 MG/DL; MALB URINE SIEMENS < 5.0 MG/L; MAU/CREAT RATIO 30.3 MCG/MG (0.0-30.0)
== END ==
LOC: M PLALAB 08:00
PROVIDERS: ATTEND Family Medicine
DX: E11.69 Type 2 diabetes mellitus with other specified complication (principal); N18.31 Chronic kidney disease, stage 3a; E78.2 Mixed hyperlipidemia

== ENCOUNTER → 2021-12-23 | Outpatient (CLI) | payer OTHER ==
[~2021-12-23] MED LIST changes: -DOXY-350 PO; +DOXY-444 PO
[2021-12-23 10:18] LABS: BASO % 0.5 % (0.0-1.0); EOS # 0.1 10^3/uL (0.0-0.5); EOS % 1.5 % (0.0-3.0); HEMATOCRIT 45.6 % (36.0-47.0); HEMOGLOBIN 13.9 g/dl (12.0-15.5); LYMPH # 2.8 10^3/uL (1.5-5.0); LYMPH % 31.9 % (24.0-44.0); MEAN CORPUSCULAR HEMOGLOBIN 26.9 pg (27.0-33.0); MEAN CORPUSCULAR HGB CONC 30.5 g/dl (32.0-36.5); MEAN CORPUSCULAR VOLUME 88.2 fl (80.0-96.0); MONO # 0.5 10^3/uL (0.0-0.8); MONO % 5.5 % (2.0-8.0); NEUTROPHILS # 5.3 10^3/uL (1.5-8.5); NEUTROPHILS % 60.3 % (36.0-66.0); PLATELET COUNT, AUTOMATED 215 10^3/uL (150-450); RED BLOOD COUNT 5.17 10^6/uL (4.00-5.40); WHITE BLOOD COUNT 8.8 10^3/uL (4.0-10.0)
[2021-12-23 12:32] LABS: HEMOGLOBIN A1c 6.4 % (4.0-6.0)
[2021-12-23 13:43] LABS: ALBUMIN 3.5 G/DL (3.2-5.2); ALT/SGPT 24 U/L (7.0-40); BILIRUBIN,TOTAL 0.9 MG/DL (0.3-1.2); BLOOD UREA NITROGEN 20 MG/DL (9-23); CALCIUM LEVEL 9.4 MG/DL (8.5-10.1); CARBON DIOXIDE LEVEL 24 MMOL/L (20-31); CHLORIDE LEVEL 106 MMOL/L (98-107); CHOLESTEROL LEVEL 158 MG/DL (<200); CHOLESTEROL RISK RATIO 2.22 (<5); CREATININE FOR GFR 0.78 MG/DL (0.55-1.30); GLOMERULAR FILTRATION RATE > 60.0 (>51); GLUCOSE, FASTING 130 MG/DL (60-100); HDL CHOLESTEROL 71.1 MG/DL (>40); LDL CHOLESTEROL 73.3 MG/DL (<100); NON-HDL-C 87 MG/DL; POTASSIUM SERUM 4.6 MMOL/L (3.5-5.1); SODIUM LEVEL 141 MMOL/L (136-145); THYROID STIMULATING HORMONE 1.461 uIU/ML (0.55-4.78); TOTAL PROTEIN 6.8 G/DL (5.7-8.2); TRIGLYCERIDES LEVEL 68 MG/DL (<150)
== END ==
LOC: M PLALAB 07:44
PROVIDERS: ATTEND Physician Assistant
DX: E11.69 Type 2 diabetes mellitus with other specified complication (principal)

== ENCOUNTER → 2022-06-25 | Outpatient (CLI) | payer OTHER ==
[2022-06-25 11:11] LABS: HEMATOCRIT 44.4 % (36.0-47.0); HEMOGLOBIN 13.6 g/dl (12.0-15.5); MEAN CORPUSCULAR HEMOGLOBIN 27.2 pg (27.0-33.0); MEAN CORPUSCULAR HGB CONC 30.6 g/dl (32.0-36.5); MEAN CORPUSCULAR VOLUME 88.8 fl (80.0-96.0); PLATELET COUNT, AUTOMATED 222 10^3/uL (150-450); WHITE BLOOD COUNT 8.7 10^3/uL (4.0-10.0)
[2022-06-25 11:15] LABS: ALBUMIN 3.2 G/DL (3.2-5.2); ALKALINE PHOSPHATASE 110 U/L (46-116); ALT/SGPT 33 U/L (7.0-40); AST/SGOT 22 U/L (<34); BILIRUBIN,TOTAL 0.7 MG/DL (0.3-1.2); BLOOD UREA NITROGEN 16 MG/DL (9-23); CALCIUM LEVEL 8.8 MG/DL (8.5-10.1); CARBON DIOXIDE LEVEL 23 MMOL/L (20-31); CHLORIDE LEVEL 109 MMOL/L (98-107); CHOLESTEROL LEVEL 148 MG/DL (<200); CHOLESTEROL RISK RATIO 2.51 (<5); CREATININE FOR GFR 0.72 MG/DL (0.55-1.30); GLOMERULAR FILTRATION RATE > 60.0 (>51); GLUCOSE, FASTING 150 MG/DL (60-100); HDL CHOLESTEROL 58.8 MG/DL (>40); LDL CHOLESTEROL 68.6 MG/DL (<100); NON-HDL-C 89.2 MG/DL; POTASSIUM SERUM 4.5 MMOL/L (3.5-5.1); SODIUM LEVEL 142 MMOL/L (136-145); TOTAL PROTEIN 6.7 G/DL (5.7-8.2); TRIGLYCERIDES LEVEL 103 MG/DL (<150)
[2022-06-25 11:40] LABS: CREATININE, URINE 92.4 MG/DL; MALB URINE SIEMENS < 3.0 MG/L; MAU/CREAT RATIO 3.2 MCG/MG (0.0-30.0)
[2022-06-25 11:55] LABS: HEMOGLOBIN A1c 7.6 % (4.0-6.0)
== END ==
LOC: M PLALAB 07:47
PROVIDERS: ATTEND Physician Assistant
DX: E11.69 Type 2 diabetes mellitus with other specified complication (principal); E78.2 Mixed hyperlipidemia

== ENCOUNTER → 2023-01-13 | Outpatient (CLI) | payer OTHER ==
[~2023-01-13] MED LIST changes: -K-TA10TA PO; +POTA-164 PO
[2023-01-13 14:41] LABS: BASO % 0.4 % (0.0-1.0); EOS # 0.1 10^3/uL (0.0-0.5); EOS % 0.7 % (0.0-3.0); HEMATOCRIT 50.5 % (36.0-47.0); LYMPH # 2.4 10^3/uL (1.5-5.0); LYMPH % 25.2 % (24.0-44.0); MEAN CORPUSCULAR HEMOGLOBIN 27.5 pg (27.0-33.0); MEAN CORPUSCULAR HGB CONC 31.7 g/dl (32.0-36.5); MEAN CORPUSCULAR VOLUME 86.9 fl (80.0-96.0); MONO # 0.6 10^3/uL (0.0-0.8); NEUTROPHILS # 6.5 10^3/uL (1.5-8.5); NEUTROPHILS % 67.4 % (36.0-66.0); PLATELET COUNT, AUTOMATED 205 10^3/uL (150-450); RED BLOOD COUNT 5.81 10^6/uL (4.00-5.40); WHITE BLOOD COUNT 9.7 10^3/uL (4.0-10.0)
[2023-01-13 14:47] LABS: ALBUMIN 3.8 G/DL (3.2-5.2); ALKALINE PHOSPHATASE 90 U/L (46-116); ALT/SGPT 32 U/L (7.0-40); AST/SGOT 14 U/L (<34); BILIRUBIN,TOTAL 0.8 MG/DL (0.3-1.2); BLOOD UREA NITROGEN 23 MG/DL (9-23); CALCIUM LEVEL 9.6 MG/DL (8.5-10.1); CARBON DIOXIDE LEVEL 23 MMOL/L (20-31); CHLORIDE LEVEL 107 MMOL/L (98-107); CHOLESTEROL LEVEL 191 MG/DL (<200); CHOLESTEROL RISK RATIO 2.97 (<5); CREATININE FOR GFR 0.68 MG/DL (0.55-1.30); FREE T4 1.19 NG/DL (0.89-1.76); GLOMERULAR FILTRATION RATE > 60.0 (>51); GLUCOSE, FASTING 138 MG/DL (60-100); HDL CHOLESTEROL 64.1 MG/DL (>40); LDL CHOLESTEROL 110.7 MG/DL (<100); NON-HDL-C 126.9 MG/DL; POTASSIUM SERUM 3.9 MMOL/L (3.5-5.1); SODIUM LEVEL 139 MMOL/L (136-145); THYROID STIMULATING HORMONE 1.174 uIU/ML (0.55-4.78); TOTAL PROTEIN 7.4 G/DL (5.7-8.2); TRIGLYCERIDES LEVEL 81 MG/DL (<150)
[2023-01-13 15:45] LABS: HEMOGLOBIN A1c 6.6 % (4.0-6.0)
== END ==
LOC: M PLALAB 10:15
PROVIDERS: ATTEND Physician Assistant
DX: E11.69 Type 2 diabetes mellitus with other specified complication (principal); E66.9 Obesity, unspecified; E78.2 Mixed hyperlipidemia; I10 Essential (primary) hypertension

== ENCOUNTER → 2023-08-12 | Outpatient (CLI) | payer OTHER ==
[~2023-08-12] MED LIST changes: +DOXY-440 PO; -DOXY-444 PO
== END ==
LOC: M PLALAB 10:07
PROVIDERS: ATTEND Physician Assistant
DX: E11.69 Type 2 diabetes mellitus with other specified complication (principal)

== ENCOUNTER → 2024-03-29 | Outpatient (CLI) | payer OTHER ==
[2024-03-29 15:14] LABS: CREATININE, URINE 60.6 MG/DL
[2024-03-29 15:15] LABS: MALB URINE SIEMENS < 3.0 MG/L
[2024-03-29 15:17] LABS: ALBUMIN 3.4 G/DL (3.2-5.2); ALKALINE PHOSPHATASE 88 U/L (35-104); ALT/SGPT 27 U/L (7.0-40); AST/SGOT 17 U/L (<34); BILIRUBIN,TOTAL 0.6 MG/DL (0.3-1.2); BLOOD UREA NITROGEN 16 MG/DL (9-23); CALCIUM LEVEL 9.6 MG/DL (8.3-10.6); CARBON DIOXIDE LEVEL 21 MMOL/L (20-31); CHLORIDE LEVEL 111 MMOL/L (98-107); CHOLESTEROL LEVEL 181 MG/DL (<200); CREATININE FOR GFR 0.68 MG/DL (0.55-1.30); GLOMERULAR FILTRATION RATE > 60.0 (>45); GLUCOSE, FASTING 97 MG/DL (74-106); HDL CHOLESTEROL 62.2 MG/DL (>40); LDL CHOLESTEROL 99.2 MG/DL (<100); NON-HDL-C 118.8 MG/DL; POTASSIUM SERUM 4.8 MMOL/L (3.5-5.1); SODIUM LEVEL 143 MMOL/L (136-145); TOTAL PROTEIN 7.1 G/DL (5.7-8.2); TRIGLYCERIDES LEVEL 98 MG/DL (<150)
[2024-03-29 15:40] LABS: HEMOGLOBIN A1c 7.3 % (4.0-6.0)
== END ==
LOC: M PLALAB 10:03
PROVIDERS: ATTEND Nurse Practitioner Family
DX: E11.69 Type 2 diabetes mellitus with other specified complication (principal); E78.2 Mixed hyperlipidemia; I10 Essential (primary) hypertension

== ENCOUNTER → 2024-09-27 | Outpatient (REF) | payer OTHER ==
[2024-09-27 14:42] LABS: ALT/SGPT 33 U/L (7.0-40); AST/SGOT 23 U/L (<34); CALCIUM LEVEL 9.7 MG/DL (8.3-10.6); CARBON DIOXIDE LEVEL 22 MMOL/L (20-31); CHLORIDE LEVEL 108 MMOL/L (98-107); CHOLESTEROL LEVEL 190 MG/DL (<200); CHOLESTEROL RISK RATIO 2.84 (<5); CREATININE FOR GFR 0.74 MG/DL (0.55-1.30); GLOMERULAR FILTRATION RATE > 90.0 (>45); LDL CHOLESTEROL 100.1 MG/DL (<100); NON-HDL-C 123.1 MG/DL; POTASSIUM SERUM 4.8 MMOL/L (3.5-5.1); SODIUM LEVEL 143 MMOL/L (136-145); TRIGLYCERIDES LEVEL 115 MG/DL (<150)
[2024-09-27 17:03] LABS: ESTIMATED AVERAGE GLUCOSE 174.0 MG/DL (60-110)
== END ==
LOC: M SFHCPLAZ 09:51
PROVIDERS: ATTEND Nurse Practitioner Family
DX: E11.69 Type 2 diabetes mellitus with other specified complication (principal); N18.31 Chronic kidney disease, stage 3a; E78.2 Mixed hyperlipidemia